=== PATIENT | male | born 1945 | race Caucasian/White ===

== ENCOUNTER 2020-02-23 12:01 | Inpatient (IN) | payer BC, OTHER ==
[~2020-02-23] VITALS: Ht 177.8 cm; Wt 79.0 kg
[2020-02-23] MEDS ORDERED: D3 +TAB PO (12:27)
[2020-02-23] MEDS ORDERED: TIOT18INH INH (12:27)
[2020-02-23] MEDS ORDERED: SYMB16INH INH (12:27)
[2020-02-23] MEDS ORDERED: DOXY100T PO (12:27)
[2020-02-23] MEDS ORDERED: PROAAER10 INH (12:27)
[2020-02-23] MEDS ORDERED: FLOM0.4C39 PO (12:27)
[2020-02-23] MEDS ORDERED: PRED20TA PO (12:27)
[2020-02-23] MEDS ORDERED: SYNT125T PO (12:27)
[2020-02-23] MEDS ORDERED: ACET20%4ML INH (12:27)
[2020-02-23] MEDS ORDERED: FLUTISP (12:27)
[2020-02-23] MEDS ORDERED: SIMV40TA20 PO (12:27)
[2020-02-23] MEDS ORDERED: GUAI400T9 PO (12:27)
[2020-02-23 13:13] LABS: INR 1.23; PROTHROMBIN TIME 15.8 SECONDS (11.8-14.0)
[2020-02-23 13:24] LABS: BASO % 0.2 % (0.0-1.0); HEMATOCRIT 41.5 % (42.0-52.0); HEMOGLOBIN 13.3 g/dl (13.5-17.5); LYMPH # 0.6 10^3/uL (1.5-5.0); LYMPH % 5.7 % (24.0-44.0); MEAN CORPUSCULAR HEMOGLOBIN 29.4 pg (27.0-33.0); MEAN CORPUSCULAR VOLUME 91.6 fl (80.0-96.0); MONO # 0.4 10^3/uL (0.0-0.8); MONO % 3.3 % (0.0-5.0); NEUTROPHILS # 10.1 10^3/uL (1.5-8.5); NEUTROPHILS % 90.4 % (36.0-66.0); PLATELET COUNT, AUTOMATED 269 10^3/uL (150-450); RED BLOOD COUNT 4.53 10^6/uL (4.30-6.10); WHITE BLOOD COUNT 11.1 10^3/uL (4.0-10.0)
[2020-02-23 13:29] LABS: ALBUMIN 3.8 GM/DL (3.2-5.2); ALT/SGPT 100 U/L (12-78); BILIRUBIN,DIRECT 0.4 MG/DL (0.0-0.2); BILIRUBIN,TOTAL 0.8 MG/DL (0.2-1.0); BLOOD UREA NITROGEN 21 MG/DL (7-18); CALCIUM LEVEL 9.8 MG/DL (8.8-10.2); CARBON DIOXIDE LEVEL 32 MEQ/L (21-32); CHLORIDE LEVEL 104 MEQ/L (98-107); CK-MB VALUE MASS 5.3 NG/ML (<3.6); CPK CREATINE PHOSPHOKINASE 98 U/L (39-308); CREATININE FOR GFR 0.84 MG/DL (0.70-1.30); GLOMERULAR FILTRATION RATE > 60.0 (>42); GLUCOSE, FASTING 126 MG/DL (70-100); MB/CK RELATIVE INDEX 5.41 (< OR =4); POTASSIUM SERUM 4.3 MEQ/L (3.5-5.1); SODIUM LEVEL 143 MEQ/L (136-145); THYROXINE (T4) 10.3 UG/DL (4.5-12.0); TOTAL PROTEIN 6.8 GM/DL (6.4-8.2); TROPONIN I 0.02 NG/ML (< 0.10)
--- NOTE | 2020-02-23 13:33 | REPVR ---
PROCEDURE INFORMATION: Exam: XR Chest, 1 View Exam date and time: 02/23/2020 1:10 PM Age: 74 years old Clinical indication: Shortness of breath; Additional info: Dyspnea/cough TECHNIQUE: Imaging protocol: XR of the chest Views: 1 view. COMPARISON: No relevant prior studies available. FINDINGS: Lungs: Unremarkable. No consolidation. Pleural space: Unremarkable. No pleural effusion. No pneumothorax. Heart/Mediastinum: Unremarkable. No cardiomegaly. Vasculature: Calcification of the thoracic aorta. Bones/joints: Degenerative change of the spine. IMPRESSION: No acute cardiopulmonary abnormality. Electronically signed by: Josselin Guevara On 02/23/2020 13:33:32 PM
[2020-02-23] MEDS ORDERED: diltiaZEM 125 MG in NS 100 ML IV SCH ×3 (15:00→20:40)
[2020-02-23 15:28] LABS: NT-PRO BNP 2331 PG/ML (<125)
[2020-02-23] MEDS ORDERED: D31000TA2 PO (17:54)
[2020-02-23] MEDS ORDERED: PRES10CA2 PO (17:55)
[2020-02-23] MEDS ORDERED: MAALOX 30 ML SUSP *UDC PO PRN (18:00)
[2020-02-23] MEDS: DIGOXIN INJ 0.5 MG/2 ML AMP (J1160) IV SCH (18:00)
[2020-02-23] MEDS ORDERED: MOM 30ML SUSPENSION UDC PO PRN (18:00)
[2020-02-23] MEDS ORDERED: AMIODARONE HCL 150 MG in IV 1 EA IV STA (18:08)
--- NOTE | 2020-02-23 18:30 | HPEPDOC ---
[facility] Medical History & Physical Date of Admission Feb 23, 2020 Date of Service: Feb 23, 2020 Attending Physician: FRANCESCA WASHINGTON MD History and Physical CHIEF COMPLAINT: shortness of breath HISTORY OF PRESENT ILLNESS: Mr. Chamorro is a 74 yo M with a hx of COPD, presenting to the ED with a 2 week history of worsening SOB, weight gain (~10lb) in same time frame. He reports having been treated for COPD exacerbation with steroids. Poor historian. Receives care at the [facility]. He denies palpitations, chest pain, syncope or lightheadedness. PAST MEDICAL HISTORY: 1.COPD PAST SURGICAL HISTORY: NA. SOCIAL HISTORY: former smoker, 30+ year hx denies etoh FAMILY HISTORY: NA ALLERGIES: Please see below. REVIEW OF SYSTEMS: CONSTITUTIONAL: reports a 10 lb weight gain in 2 weeks HEENT: none. CARDIOVASCULAR: none. RESPIRATORY: worsening shortness of breath GASTROINTESTINAL: none GENITOURINARY: none. SKIN: none. MUSCULOSKELETAL: none. NEUROLOGICAL: none. PSYCHIATRIC: none. ENDOCRINE: none. HEMATOLOGIC/LYMPHATIC: none. HOME MEDICATIONS: Please see below. PHYSICAL EXAMINATION: VITAL SIGNS: please see below GENERAL APPEARANCE: NAD, mildly short of breath. Speaking full sentences. HEENT: PERRLA, EOMI. CARDIOVASCULAR: irregular, tachycardic. S1, S2. No murmur appreciated. LUNGS: no wheeze, no rales appreciated. Good air entry. Mild crackles diffusely ABDOMEN: soft, non tender. MUSCULOSKELETAL: no joint deformity. EXTREMITIES: 2+ edema bilateraly. NEUROLOGICAL: no focal neurological deficits. PSYCHIATRIC: AAO x 3, calm, pleasant, cooperative. LABORATORY DATA: See below. IMAGING: CXR (02/23/20) FINDINGS: Lungs: Unremarkable. No consolidation. Pleural space: Unremarkable. No pleural effusion. No pneumothorax. Heart/Mediastinum: Unremarkable. No cardiomegaly. Vasculature: Calcification of the thoracic aorta. Bones/joints: Degenerative change of the spine. IMPRESSION: No acute cardiopulmonary abnormality. MICROBIOLOGY: Please see below. ASSESSMENT: 74 yo M with a hx of COPD, presenting to the ED with a 2 week history of worsening shortness of breath on exertion, as well as 10 lb weight gain in 2 weeks. He received most of care at the [facility]. Reports having been treated for COPD exacerbation 2 weeks ago. In the ED noted to have atrial flutter with RVR (HRs 150s). S/p IV and PO cardizem, rate uncontrolled. Admitted to ICU with cardizem drip. Started AC. Cardiology consult. Dr. Owusu. PLAN: 1. Aflutter with RVR: new onset. S/p cardizem IV, PO in ED. Started cardizem drip. Cardiology consult, discussed with Dr. Owusu. Add amiodarone loading dose 150 mg IV x 1. Add digoxin 0.25 mg IV q6h x 4. Start AC with eliquis 5 mg Q12h. Obtain 2D echo. Initial trop 0.02. Trend x 3. Mg, Phos in AM. Check TSH. 2. CHF exacerbation: diuresis with lasix 40 mg q8h IV. Will need BB on DC. Start lisinopril 5 mg daily. 2D ECHO ordered. LEE lowe. 3. COPD: resume home inhalers. Nasal [place] 3LPM. DVT ppx: eliquis 5 mg bid. Vital Signs Vital Signs Date Time Temp Pulse Resp B/P (MAP) Pulse Ox O2 Delivery O2 Flow Rate FiO2 02/23/20 16:41 107 126/78 02/23/20 14:20 24 97 Nasal Cannula 3.0 02/23/20 12:01 97.3 Laboratory Data Labs 24H Laboratory Tests 2 02/23/20 12:25: Immature Granulocyte % (Auto) 0.4, Neutrophils (%) (Auto) 90.4H, Lymphocytes (%) (Auto) 5.7L, Monocytes (%) (Auto) 3.3, Eosinophils (%) (Auto) 0.0, Basophils (%) (Auto) 0.2, Neutrophils # (Auto) 10.1H, Lymphocytes # (Auto) 0.6L, Monocytes # (Auto) 0.4, Eosinophils # (Auto) 0.0, Basophils # (Auto) 0.0, Nucleated Red Blood Cells % (auto) 0.0, Prothrombin Time 15.8H, Prothromb Time International Ratio 1.23, Anion Gap 7L, Glomerular Filtration Rate > 60.0, Calcium Level 9.8, Total Bilirubin 0.8, Direct Bilirubin 0.4H, Aspartate Amino Transf (AST/SGOT) 50H, Alanine Aminotransferase (ALT/SGPT) 100H, Alkaline Phosphatase 64, Total Creatine Kinase 98, Creatine Kinase MB 5.3H, Creatine Kinase MB Relative Index 5.41H, Troponin I 0.02, KG-Jha-D-Type Natriuretic Peptide 2331H, Total Protein 6.8, Albumin 3.8, Albumin/Globulin Ratio 1.3, Thyroid Stimulating Hormone (TSH) 2.320, Thyroxine (T4) 10.3 02/23/20 12:33: Lactic Acid Level 1.3 CBC/BMP Laboratory Tests 02/23/20 12:25 Microbiology Microbiology 02/23/20 Blood Culture, Received Pending Home Medications Scheduled Acetylcysteine (Acetylcysteine) 200 Mg/1 Ml Vial, 600 MG INH BID Budesonide/Formoterol (Symbicort 160-4.5 Mcg Inhaler) 6 Gm Hfa.aer.ad, 2 PUFF INH BID Cholecalciferol (Vitamin D3) (Vitamin D3) 1,000 Unit Tablet, 2,000 UNITS PO DAILY Doxycycline Hyclate (Doxycycline Hyclate) 100 Mg Tablet, 100 MG PO BID started 02/18/20 for 10 days Fluticasone Propionate (Fluticasone Propionate) 16 Gm [place].susp, 1 SPRAY NA BID Levothyroxine Sodium (Synthroid) 125 Mcg Tablet, 125 MCG PO QAM patient states has not started yet Prednisone (Prednisone) 20 Mg Tablet, 40 MG PO DAILY started 02/18/20 took last dose 02/23/20 Simvastatin (Simvastatin) 40 Mg Tablet, 40 MG PO QHS Tamsulosin HCl (Flomax) 0.4 Mg Capsule, 0.4 MG PO DAILY patient states has not started yet Tiotropium Model Monohydrate (Spiriva) 18 Mcg Cap.w.dev, 1 PUFF INH DAILY Vit C/E/Zn/Coppr/Lutein/Zeaxan (Preservision Areds 2 Softgel) 1 Each Capsule, 1 EACH PO BID Scheduled PRN Albuterol Sulfate (Proair Hfa) 8.5 Gm Hfa.aer.ad, 2 PUFF INH Q4-6HP PRN for wheezing Guaifenesin (Guaifenesin) 400 Mg Tablet, 400 MG PO TID PRN for COUGH Allergies Coded Allergies: No Known Allergies (Unverified , 02/23/20) A-FIB/CHADSVASC A-FIB History Current/History of A-Fib/PAF?: Yes Current PO Anticoag Therapy: Yes FRANCESCA WASHINGTON MD Feb 23, 2020 18:30
[2020-02-23] MEDS: FUROSEMIDE 40MG/4ML VIAL (J1940) IV SCH (19:22)
[2020-02-23] MEDS: APIXABAN 5 MG TAB (ELIQUIS) PO SCH (19:23)
[2020-02-23] MEDS: ACETAMINOPHEN TAB 650MG DOSE (2X325MG) PO PRN (20:45)
[2020-02-23] MEDS: DOXYCYCLINE HYCLATE 100MG TABLET PO SCH (21:00)
[2020-02-23] MEDS ORDERED: ACETYLCYSTEINE 20% 4 ML VIAL (200MG/ML) INH SCH (21:00)
[2020-02-23 22:00] VITALS: BP 121/73
[2020-02-23] MEDS ORDERED: ALBUTEROL 90 MCG/ACT 8GM HFA INHALER INH PRN (22:30)
[2020-02-23] MEDS ORDERED: guaiFENesin 200 MG TAB PO PRN (22:30)
[2020-02-23] MEDS: TIOTROPIUM INHALER/CAPSULE (SPIRIVA) INH SCH (22:30)
[2020-02-23] MEDS: diltiaZEM 125 MG in NS 100 ML IV SCH (22:42)
[2020-02-23] MEDS: SYMBICORT 160/4.5MCG INHALER 6GM INH SCH (22:49)
[2020-02-24] VITALS (17 sets, daily range): BP systolic 88–130; BP diastolic 51–82
[2020-02-24] MEDS: FUROSEMIDE 40MG/4ML VIAL (J1940) IV SCH ×2 (00:40→08:04)
[2020-02-24] MEDS: DIGOXIN INJ 0.5 MG/2 ML AMP (J1160) IV SCH ×3 (00:43→11:14)
[2020-02-24 05:44] LABS: BASO % 0.3 % (0.0-1.0); EOS # 0.1 10^3/uL (0.0-0.5); EOS % 0.7 % (0.0-3.0); HEMOGLOBIN 12.7 g/dl (13.5-17.5); LYMPH # 1.5 10^3/uL (1.5-5.0); LYMPH % 15.1 % (24.0-44.0); MEAN CORPUSCULAR HEMOGLOBIN 28.4 pg (27.0-33.0); MEAN CORPUSCULAR HGB CONC 31.8 g/dl (32.0-36.5); MEAN CORPUSCULAR VOLUME 89.5 fl (80.0-96.0); MONO # 1.2 10^3/uL (0.0-0.8); MONO % 12.1 % (0.0-5.0); NEUTROPHILS % 71.3 % (36.0-66.0); PLATELET COUNT, AUTOMATED 208 10^3/uL (150-450); RED BLOOD COUNT 4.47 10^6/uL (4.30-6.10); WHITE BLOOD COUNT 9.9 10^3/uL (4.0-10.0)
[2020-02-24 06:05] LABS: HEMOGLOBIN A1c 5.7 %
[2020-02-24] MEDS: LEVOTHYROXINE 125MCG TABLET (0.125MG) PO SCH (06:10)
[2020-02-24] MEDS: diltiaZEM 125 MG in NS 100 ML IV SCH ×2 (06:12→15:29)
[2020-02-24 06:16] LABS: ALBUMIN 3.6 GM/DL (3.2-5.2); ALT/SGPT 115 U/L (12-78); BILIRUBIN,TOTAL 0.8 MG/DL (0.2-1.0); BLOOD UREA NITROGEN 16 MG/DL (7-18); CARBON DIOXIDE LEVEL 38 MEQ/L (21-32); CHLORIDE LEVEL 98 MEQ/L (98-107); CHOLESTEROL LEVEL 119 MG/DL (<200); CREATININE FOR GFR 0.82 MG/DL (0.70-1.30); GLOMERULAR FILTRATION RATE > 60.0 (>42); GLUCOSE, FASTING 93 MG/DL (70-100); HDL CHOLESTEROL 50 MG/DL (>40); LDL CHOLESTEROL 54 MG/DL (<100); MAGNESIUM LEVEL 1.7 MG/DL (1.8-2.4); NON-HDL-C 69 MG/DL; PHOSPHORUS LEVEL 3.8 MG/DL (2.5-4.9); POTASSIUM SERUM 3.4 MEQ/L (3.5-5.1); SODIUM LEVEL 143 MEQ/L (136-145); TOTAL PROTEIN 6.2 GM/DL (6.4-8.2); TRIGLYCERIDES LEVEL 76 MG/DL (<150); TROPONIN I 0.02 NG/ML (< 0.10)
[2020-02-24] MEDS: SYMBICORT 160/4.5MCG INHALER 6GM INH SCH ×2 (07:29→20:26)
[2020-02-24] MEDS: TIOTROPIUM INHALER/CAPSULE (SPIRIVA) INH SCH (07:29)
[2020-02-24] MEDS ORDERED: POTASSIUM CHLORIDE 10 MEQ SR TABLET PO ONE (07:30)
[2020-02-24] MEDS ORDERED: lisinopriL 5 MG TAB PO SCH (09:00)
[2020-02-24] MEDS ORDERED: SYMBICORT 160/4.5MCG INHALER 6GM INH SCH (09:00)
[2020-02-24] MEDS ORDERED: TIOTROPIUM INHALER/CAPSULE (SPIRIVA) INH SCH (09:00)
[2020-02-24] MEDS ORDERED: AMIODARONE HCL 150 MG in IV 1 EA IV STA ×2 (09:08→18:19)
[2020-02-24] MEDS: TAMSULOSIN 0.4 MG CAP PO SCH (09:21)
[2020-02-24] MEDS: APIXABAN 5 MG TAB (ELIQUIS) PO SCH ×2 (09:30→20:43)
[2020-02-24] MEDS: DOXYCYCLINE HYCLATE 100MG TABLET PO SCH ×2 (09:30→20:42)
[2020-02-24] MEDS: VITAMIN D 1,000 INTERNATIONAL UNITS TABLET PO SCH (09:30)
[2020-02-24] MEDS: FLUTICASONE PROP 0.05% NASAL SPRAY 16 GM (FLONASE) SCH ×2 (09:31→20:43)
[2020-02-24] MEDS: ACETAMINOPHEN TAB 650MG DOSE (2X325MG) PO PRN (11:15)
--- NOTE | 2020-02-24 14:26 | IPNPDOC ---
Date Seen The patient was seen on 02/24/20. Progress Note TOTAL ICU TIME SPENT CARING FOR PATIENT: 35 mins SUBJECTIVE: Increased cardizem gtt to 15 mg/hr due to HR increased to 150 bpm. Given 150 mg iV bolus amiodarone and early dose of digoxin with HR improved to 80-90 bpm. Cardiology on board, made recommendations. On 3 L NC, home amount. Denies chest pain but admits to increased SOB, nausea. PHYSICAL EXAMINATION: VITAL SIGNS: please see below GENERAL APPEARANCE: NAD, mildly short of breath HEENT: PERRLA, EOMI CARDIOVASCULAR: irregularly irrregular rhythm, tachycardic. S1, S2. No murmur appreciated. LUNGS: no wheeze, no rales appreciated. Good air entry. Mild crackles diffusely ABDOMEN: soft, non tender. MUSCULOSKELETAL: no joint deformity. EXTREMITIES: 2+ edema bilaterally. NEUROLOGICAL: no focal neurological deficits. PSYCHIATRIC: AAO x 3, calm, pleasant, cooperative. LABORATORY DATA, IMAGING STUDIES, MICROBIOLOGY: Please see below CXR 02/23/20: No acute cardiopulmonary abnormality. ECG: atrial fibrillation, HR 15O's. ASSESSMENT: 74 yo M with a hx of chronic respiratory failure 2/2 to COPD (3 L NC O2 dependant ATC) admitted to ICU for further treatment/management of atrial flutter with RVR (HRs 150s), cardiology consulted. PLAN: 1. Aflutter with RVR, new onset. Hx of significant lung disease, no infection that is identified. TSH wnl. F/u echocardiogram today, cardiology following. C/w eliquis, cardizem gtt, s/p digoxin, amiodarone. Tele. 2. Acute on chronic respiratory failure 2/2 to CHF exacerbation 2/2 to unc ontrolled atrial flutter/atrial fibrillation. Currently saturating well on 3 L NC, home amount. BNP >2330. C/w diuresis with lasix 40 mg q8h IV, cardizem gtt, lisinopril 5 mg daily. 2D ECHO ordered, f/u results and cardiology recommendations. 3. COPD, not currently in exacerbation. On home amount of oxygen, saturating well. Albuterol PRN, incentive spirometer. 4. DVT ppx: eliquis 5 mg bid. DISPOSITION: Currently remains on cardizem gtt. Remains in ICU care, if can wean down or off gtt, transition to PCU. F/u cardiology recommendations. VS, I&O, 24H, Pericobonbud Vital Signs/I&O Vital Signs Date Time Temp Pulse Resp B/P (MAP) Pulse Ox O2 Delivery O2 Flow Rate FiO2 02/24/20 13:00 102 99/56 (70) Nasal Cannula 3.0 02/24/20 12:00 98.8 18 96 I&O- Last 24 Hours up to 6 AM 02/24/20 06:00 Intake Total 855 ml Output Total 4350 ml Balance -3495 ml Laboratory Data 24H LABS Laboratory Tests 2 02/23/20 23:35: Troponin I 0.02 02/24/20 05:15: Troponin I 0.02, Immature Granulocyte % (Auto) 0.5, Neutrophils (%) (Auto) 71.3H, Lymphocytes (%) (Auto) 15.1L, Monocytes (%) (Auto) 12.1H, Eosinophils (%) (Auto) 0.7, Basophils (%) (Auto) 0.3, Neutrophils # (Auto) 7.0, Lymphocytes # (Auto) 1.5, Monocytes # (Auto) 1.2H, Eosinophils # (Auto) 0.1, Basophils # (Auto) 0.0, Nucleated Red Blood Cells % (auto) 0.0, Anion Gap 7L, Glomerular Filtration Rate > 60.0, Estimated Mean Plasma Glucose 117H, Hemoglobin A1c 5.7, Calcium Level 9.0, Phosphorus Level 3.8, Magnesium Level 1.7L, Total Bilirubin 0.8, Aspartate Amino Transf (AST/SGOT) 59H, Alanine Aminotransferase (ALT/SGPT) 115H, Alkaline Phosphatase 57, Total Protein 6.2L, Albumin 3.6, Albumin/Globulin Ratio 1.4, Triglycerides Level 76, Total Cholesterol 119, LDL Cholesterol 54, Non-HDL Cholesterol (LDL + VLDL) 69, Total HDL Cholesterol 50, Cholesterol/HDL Ratio 2.380, Thyroid Stimulating Hormone (TSH) 3.490 02/24/20 08:30: Urine Color STRAW, Urine Appearance CLEAR, Urine pH 7.0, Urine Specific [place] 1.006, Urine Protein NEGATIVE, Urine Glucose (UA) NEGATIVE, Urine Ketones TRACEH, Urine Blood 1+H, Urine Nitrite NEGATIVE, Urine Bilirubin NEGATIVE, Urine Urobilinogen 0.2, Urine Leukocyte Esterase NEGATIVE, Urine WBC (Auto) 4H, Urine RBC (Auto) 6H, Urine Hyaline Casts (Auto) 0, Urine Bacteria (Auto) NEGATIVE, Urine Squamous Epithelial Cells 0, Urine Mucus (Auto) SMALL, Urine Sperm (Auto) CBC/BMP Laboratory Tests 02/24/20 05:15 Microbiology Microbiology 02/23/20 Blood Culture, Received Pending 02/23/20 Blood Culture - Preliminary, Resulted No growth after 24 hours . All specim... Current Medications Current Medications Medications (Trade) Dose Ordered Sig/Ronal Route PRN Reason Start Time Stop Time Status Last Admin Dose Admin Acetaminophen (Tylenol Tab) 650 mg Q4H PRN PO PAIN OR FEVER 02/23/20 18:00 02/24/20 11:15 Acetylcysteine (Mucomyst 20% (200mg/ml)) 600 mg BID INH 02/23/20 21:00 02/24/20 10:30 DC Al Hydrox/Mg Hydrox/Simethicone (Mylanta) 30 ml DAILY PRN PO DYSPEPSIA 02/23/20 18:00 Albuterol Sulfate (Proventil, Ventolin Hfa) 2 puff Q4HP PRN INH wheezing 02/23/20 22:30 Amiodarone HCl 150 mg/IV Miscellaneous Supplies 100 ml @ 600 mls/hr STAT STAT IV 02/23/20 18:08 02/23/20 18:21 DC 02/23/20 18:08 Amiodarone HCl 150 mg/IV Miscellaneous Supplies 100 ml @ 600 mls/hr STAT STAT IV 02/24/20 09:08 02/24/20 09:17 DC 02/24/20 09:25 Apixaban (Eliquis) 5 mg Q12H PO 02/23/20 21:00 02/24/20 09:30 Budesonide/ Formoterol Fumarate (Symbicort 160/ 4.5mcg) 2 puff BID INH 02/23/20 22:30 02/24/20 07:29 Budesonide/ Formoterol Fumarate (Symbicort 160/ 4.5mcg) 2 puff BID INH 02/24/20 09:00 02/23/20 22:25 DC Digoxin (Lanoxin) 0.25 mg Q6H IV 02/23/20 18:00 02/24/20 12:01 DC 02/24/20 11:14 Diltiazem HCl (Cardizem) 20 mg STAT STAT IV 02/23/20 13:42 02/23/20 13:46 DC 02/23/20 14:09 Diltiazem HCl (Cardizem) 30 mg Q6H PO 02/24/20 12:00 02/24/20 12:57 Diltiazem HCl (Cardizem) 30 mg STAT STAT IV 02/23/20 14:50 02/23/20 14:53 DC 02/23/20 15:32 Diltiazem HCl 125 mg/Sodium Chloride 125 ml @ 12 mls/hr [id number] IV 02/23/20 22:14 02/24/20 06:12 Diltiazem HCl 125 mg/Sodium Chloride 125 ml @ 1 mls/hr Q24H IV 02/23/20 15:00 02/23/20 15:48 DC Diltiazem HCl 125 mg/Sodium Chloride 125 ml @ 5 mls/hr Q24H IV 02/23/20 17:30 02/23/20 20:37 DC 02/23/20 17:45 Diltiazem HCl 125 mg/Sodium Chloride 125 ml @ 5 mls/hr Q24H IV 02/23/20 20:40 02/23/20 22:16 DC 02/23/20 21:09 Doxycycline Hyclate (Vibramycin) 100 mg BID PO 02/23/20 21:00 02/24/20 09:30 Fluticasone Propionate (Flonase 0.05% Nasal [place]) 1 spray BID NA 02/24/20 09:00 02/24/20 09:31 Furosemide (LASIX injection) 40 mg Q8H IV 02/23/20 16:00 02/24/20 08:04 Guaifenesin (Robitussin Tab) 400 mg TID PRN PO COUGH 02/23/20 22:30 Home Med (Med Rec Complete!) ASDIRECTED XX 02/23/20 18:00 02/23/20 18:00 DC Levothyroxine Sodium (Synthroid) 125 mcg DAILY@0600 PO 02/24/20 06:00 02/24/20 06:10 Lisinopril (Prinivil) 5 mg DAILY PO 02/24/20 09:00 02/24/20 09:41 Magnesium Hydroxide (Milk Of Magnesia) 30 ml DAILY PRN PO CONSTIPATION 02/23/20 18:00 Simvastatin (Zocor) 40 mg QHS PO 02/24/20 21:00 Tamsulosin HCl (Flomax) 0.4 mg DAILY PO 02/24/20 09:00 02/24/20 09:21 Tiotropium [place] (Spiriva Handihaler) 1 inhalation DAILY INH 02/24/20 09:00 Cancel Tiotropium [place] (Spiriva Handihaler) 1 inhalation DAILY@0800 INH 02/23/20 22:30 02/24/20 07:29 Vitamin D (Vitamin D) 2,000 units DAILY PO 02/24/20 09:00 02/24/20 09:30 Allergies Coded Allergies: No Known Allergies (Unverified , 02/23/20) Jenny Ayala MD Feb 24, 2020 14:26
[2020-02-24] MEDS: SIMVASTATIN 40 MG TAB PO SCH (20:42)
[2020-02-25] VITALS (18 sets, daily range): BP systolic 93–117; BP diastolic 50–65
[2020-02-25] MEDS: diltiaZEM 125 MG in NS 100 ML IV SCH ×2 (02:28→19:22)
[2020-02-25 05:24] LABS: BASO % 0.4 % (0.0-1.0); EOS # 0.1 10^3/uL (0.0-0.5); EOS % 1.3 % (0.0-3.0); HEMATOCRIT 36.2 % (42.0-52.0); HEMOGLOBIN 11.8 g/dl (13.5-17.5); LYMPH # 1.6 10^3/uL (1.5-5.0); LYMPH % 17.3 % (24.0-44.0); MEAN CORPUSCULAR HEMOGLOBIN 29.4 pg (27.0-33.0); MEAN CORPUSCULAR HGB CONC 32.6 g/dl (32.0-36.5); MONO % 10.7 % (0.0-5.0); NEUTROPHILS # 6.3 10^3/uL (1.5-8.5); NEUTROPHILS % 69.9 % (36.0-66.0); PLATELET COUNT, AUTOMATED 192 10^3/uL (150-450); RED BLOOD COUNT 4.02 10^6/uL (4.30-6.10)
[2020-02-25 05:27] LABS: HEMOGLOBIN A1c 5.5 %
[2020-02-25 05:40] LABS: ALBUMIN 3.2 GM/DL (3.2-5.2); ALT/SGPT 102 U/L (12-78); BILIRUBIN,TOTAL 1.1 MG/DL (0.2-1.0); BLOOD UREA NITROGEN 22 MG/DL (7-18); CARBON DIOXIDE LEVEL 38 MEQ/L (21-32); CHLORIDE LEVEL 97 MEQ/L (98-107); CREATININE FOR GFR 0.82 MG/DL (0.70-1.30); GLOMERULAR FILTRATION RATE > 60.0 (>42); GLUCOSE, FASTING 92 MG/DL (70-100); MAGNESIUM LEVEL 1.7 MG/DL (1.8-2.4); PHOSPHORUS LEVEL 4.1 MG/DL (2.5-4.9); POTASSIUM SERUM 3.3 MEQ/L (3.5-5.1); SODIUM LEVEL 141 MEQ/L (136-145); TOTAL PROTEIN 5.9 GM/DL (6.4-8.2)
[2020-02-25] MEDS: LEVOTHYROXINE 125MCG TABLET (0.125MG) PO SCH (06:37)
[2020-02-25] MEDS: TIOTROPIUM INHALER/CAPSULE (SPIRIVA) INH SCH (08:06)
[2020-02-25] MEDS: SYMBICORT 160/4.5MCG INHALER 6GM INH SCH ×2 (08:07→19:33)
[2020-02-25] MEDS: VITAMIN D 1,000 INTERNATIONAL UNITS TABLET PO SCH (08:13)
[2020-02-25] MEDS: FUROSEMIDE 100MG/10ML VIAL (J1940) IV SCH (08:13)
[2020-02-25] MEDS: APIXABAN 5 MG TAB (ELIQUIS) PO SCH ×2 (08:14→21:06)
[2020-02-25] MEDS: DOXYCYCLINE HYCLATE 100MG TABLET PO SCH ×2 (08:14→21:07)
[2020-02-25] MEDS: POTASSIUM CHLORIDE 10 MEQ SR TABLET PO SCH (08:14)
[2020-02-25] MEDS: MAGNESIUM OXIDE 400 MG TAB (MAG-OX) PO SCH (08:14)
[2020-02-25] MEDS: FLUTICASONE PROP 0.05% NASAL SPRAY 16 GM (FLONASE) SCH ×2 (08:14→21:07)
[2020-02-25] MEDS: TAMSULOSIN 0.4 MG CAP PO SCH (08:14)
[2020-02-25] MEDS ORDERED: AMIODARONE HCL 150 MG in IV 1 EA IV STA ×2 (11:13→13:15)
--- NOTE | 2020-02-25 13:53 | IPNPDOC ---
Date Seen The patient was seen on 02/25/20. Progress Note TOTAL ICU TIME SPENT CARING FOR PATIENT (no procedures): 30 mins SUBJECTIVE: Cardizem gtt down to 5 mg/hr due, HR increased to 150 bpm with activity and was given additional dose of digoxin and 2x amiodarone 150 mg IV. Cardiology to review echocardiogram today. On 2-3 LNC, home amount. Denies chest pain but admits to increased SOB, nausea. PHYSICAL EXAMINATION: VITAL SIGNS: please see below GENERAL APPEARANCE: NAD, mildly short of breath with speaking at times HEENT: PERRLA, EOMI CARDIOVASCULAR: irregularly irrregular rhythm, tachycardic. S1, S2. No murmur appreciated. LUNGS: no wheeze, no rales appreciated. Good air entry. Mild crackles diffusely ABDOMEN: soft, non tender. MUSCULOSKELETAL: no joint deformity. EXTREMITIES: 2+ edema bilaterally. NEUROLOGICAL: no focal neurological deficits. PSYCHIATRIC: AAO x 3, calm, pleasant, cooperative. LABORATORY DATA, IMAGING STUDIES, MICROBIOLOGY: Please see below CXR 02/23/20: No acute cardiopulmonary abnormality. ECG: atrial fibrillation, HR 15O's. Echo: result pending ASSESSMENT: 74 yo M with a hx of chronic respiratory failure 2/2 to COPD (3 L NC O2 dependant ATC) admitted to ICU for further treatment/management of atrial flutter with RVR (HRs 150s), cardiology consulted. PLAN: 1. Aflutter with RVR, new onset. Hx of significant lung disease, no infection that is identified. TSH wnl. F/u echocardiogram results. C/w eliquis, cardizem gtt, cardizem PO Q6hrs s/p digoxin, amiodarone IV for uncontrolled HR today. Tele. Cardiology following closely. 2. Acute on chronic respiratory failure 2/2 to CHF exacerbation 2/2 to uncontrolled atrial flutter/atrial fibrillation. Currently saturating well on 2- 3 L NC, home amount. C/w diuresis with lasix 60 mg daily IV, cardizem gtt, lisinopril 5 mg daily. 2D ECHO done, f/u results and cardiology recommendations. 3. COPD, not currently in exacerbation. On home amount of oxygen, saturating well. Albuterol PRN, incentive spirometer. 4. DVT ppx: eliquis 5 mg bid. DISPOSITION: Currently remains on cardizem gtt, plan is to hopefully transition off later this evening if able. Remains in ICU care, if can wean down or off gtt, transition to PCU. Cardiology following closely. VS, I&O, 24H, Pericobone Vital Signs/I&O Vital Signs Date Time Temp Pulse Resp B/P (MAP) Pulse Ox O2 Delivery O2 Flow Rate FiO2 02/25/20 12:00 97.6 145 20 114/59 (77) 96 Nasal Cannula 2.0 I&O- Last 24 Hours up to 6 AM 02/25/20 06:00 Intake Total 537 ml Output Total 2650 ml Balance -2113 ml Laboratory Data 24H LABS Laboratory Tests 2 02/25/20 04:50: Immature Granulocyte % (Auto) 0.4, Neutrophils (%) (Auto) 69.9H, Lymphocytes (%) (Auto) 17.3L, Monocytes (%) (Auto) 10.7H, Eosinophils (%) (Auto) 1.3, Basophils (%) (Auto) 0.4, Neutrophils # (Auto) 6.3, Lymphocytes # (Auto) 1.6, Monocytes # (Auto) 1.0H, Eosinophils # (Auto) 0.1, Basophils # (Auto) 0.0, Nucleated Red Blood Cells % (auto) 0.0, Anion Gap 6L, Glomerular Filtration Rate > 60.0, Estimated Mean Plasma Glucose 111H, Hemoglobin A1c 5.5, Calcium Level 9.0, Phosphorus Level 4.1, Magnesium Level 1.7L, Total Bilirubin 1.1H, Aspartate Amino Transf (AST/SGOT) 38H, Alanine Aminotransferase (ALT/SGPT) 102H, Alkaline Phosphatase 56, Total Protein 5.9L, Albumin 3.2, Albumin/Globulin Ratio 1.2, Thyroid Stimulating Hormone (TSH) 2.610 CBC/BMP Laboratory Tests 02/25/20 04:50 Microbiology Microbiology 02/23/20 Blood Culture - Preliminary, Resulted No growth after 24 hours . All specim... 02/23/20 Blood Culture - Preliminary, Resulted No Growth after 48 hours. All Specime... Current Medications Current Medications Medications (Trade) Dose Ordered Sig/Ronal Route PRN Reason Start Time Stop Time Status Last Admin Dose Admin Acetaminophen (Tylenol Tab) 650 mg Q4H PRN PO PAIN OR FEVER 02/23/20 18:00 02/24/20 11:15 Acetylcysteine (Mucomyst 20% (200mg/ml)) 600 mg BID INH 02/23/20 21:00 02/24/20 10:30 DC Al Hydrox/Mg Hydrox/Simethicone (Mylanta) 30 ml DAILY PRN PO DYSPEPSIA 02/23/20 18:00 Albuterol Sulfate (Proventil, Ventolin Hfa) 2 puff Q4HP PRN INH wheezing 02/23/20 22:30 Amiodarone HCl 150 mg/IV Miscellaneous Supplies 100 ml @ 600 mls/hr STAT STAT IV 02/23/20 18:08 02/23/20 18:21 DC 02/23/20 18:08 Amiodarone HCl 150 mg/IV Miscellaneous Supplies 100 ml @ 600 mls/hr STAT STAT IV 02/24/20 09:08 02/24/20 09:17 DC 02/24/20 09:25 Amiodarone HCl 150 mg/IV Miscellaneous Supplies 100 ml @ 600 mls/hr STAT STAT IV 02/24/20 18:19 02/24/20 18:28 DC 02/24/20 18:28 Amiodarone HCl 150 mg/IV Miscellaneous Supplies 100 ml @ 600 mls/hr STAT STAT IV 02/25/20 11:13 02/25/20 11:22 DC 02/25/20 11:27 Amiodarone HCl 150 mg/IV Miscellaneous Supplies 100 ml @ 600 mls/hr STAT STAT IV 02/25/20 13:15 02/25/20 13:24 DC 02/25/20 13:20 Apixaban (Eliquis) 5 mg Q12H PO 02/23/20 21:00 02/25/20 08:14 Budesonide/ Formoterol Fumarate (Symbicort 160/ 4.5mcg) 2 puff BID INH 02/23/20 22:30 02/25/20 08:07 Budesonide/ Formoterol Fumarate (Symbicort 160/ 4.5mcg) 2 puff BID INH 02/24/20 09:00 02/23/20 22:25 DC Digoxin (Lanoxin) 0.25 mg Q6H IV 02/23/20 18:00 02/24/20 12:01 DC 02/24/20 11:14 Diltiazem HCl (Cardizem) 20 mg STAT STAT IV 02/23/20 13:42 02/23/20 13:46 DC 02/23/20 14:09 Diltiazem HCl (Cardizem) 30 mg Q6H PO 02/24/20 12:00 02/25/20 11:26 Diltiazem HCl (Cardizem) 30 mg STAT STAT IV 02/23/20 14:50 02/23/20 14:53 DC 02/23/20 15:32 Diltiazem HCl 125 mg/Sodium Chloride 125 ml @ 10 mls/hr [id number] IV 02/23/20 22:14 02/25/20 02:28 Diltiazem HCl 125 mg/Sodium Chloride 125 ml @ 1 mls/hr Q24H IV 02/23/20 15:00 02/23/20 15:48 DC Diltiazem HCl 125 mg/Sodium Chloride 125 ml @ 5 mls/hr Q24H IV 02/23/20 17:30 02/23/20 20:37 DC 02/23/20 17:45 Diltiazem HCl 125 mg/Sodium Chloride 125 ml @ 5 mls/hr Q24H IV 02/23/20 20:40 02/23/20 22:16 DC 02/23/20 21:09 Doxycycline Hyclate (Vibramycin) 100 mg BID PO 02/23/20 21:00 02/25/20 08:14 Fluticasone Propionate (Flonase 0.05% Nasal [place]) 1 spray BID NA 02/24/20 09:00 02/25/20 08:14 Furosemide (LASIX injection) 40 mg Q8H IV 02/23/20 16:00 02/24/20 15:13 DC 02/24/20 08:04 Furosemide (LASIX injection) 60 mg DAILY IV 02/25/20 09:00 02/25/20 08:13 Guaifenesin (Robitussin Tab) 400 mg TID PRN PO COUGH 02/23/20 22:30 Home Med (Med Rec Complete!) ASDIRECTED XX 02/23/20 18:00 02/23/20 18:00 DC Levothyroxine Sodium (Synthroid) 125 mcg DAILY@0600 PO 02/24/20 06:00 02/25/20 06:37 Lisinopril (Prinivil) 5 mg DAILY PO 02/24/20 09:00 02/24/20 15:13 DC 02/24/20 09:41 Magnesium Hydroxide (Milk Of Magnesia) 30 ml DAILY PRN PO CONSTIPATION 02/23/20 18:00 Magnesium Oxide (Mag-Ox) 800 mg DAILY PO 02/25/20 09:00 02/25/20 08:14 Potassium Chloride (Micro-K Extencaps) 30 meq DAILY PO 02/25/20 09:00 02/25/20 08:14 Simvastatin (Zocor) 40 mg QHS PO 02/24/20 21:00 02/24/20 20:42 Tamsulosin HCl (Flomax) 0.4 mg DAILY PO 02/24/20 09:00 02/25/20 08:14 Tiotropium [place] (Spiriva Handihaler) 1 inhalation DAILY INH 02/24/20 09:00 Cancel Tiotropium [place] (Spiriva Handihaler) 1 inhalation DAILY@0800 INH 02/23/20 22:30 02/25/20 08:06 Vitamin D (Vitamin D) 2,000 units DAILY PO 02/24/20 09:00 02/25/20 08:13 Allergies Coded Allergies: No Known Allergies (Unverified , 02/23/20) Jenny Ayala MD Feb 25, 2020 13:52
[2020-02-25] MEDS ORDERED: diltiaZEM 125 MG in NS 100 ML IV SCH (18:03)
[2020-02-25] MEDS ORDERED: OCUVITE 1 TAB PO SCH (21:00)
[2020-02-25] MEDS: SIMVASTATIN 40 MG TAB PO SCH (21:07)
[2020-02-25] MEDS: SENNA 8.6 MG TAB (SENOKOT) PO SCH (21:07)
[2020-02-25] MEDS: OCUVITE 1 TAB PO SCH (21:13)
[2020-02-26] VITALS (9 sets, daily range): BP systolic 84–117; BP diastolic 51–59
[2020-02-26] MEDS: diltiaZEM 125 MG in NS 100 ML IV SCH ×2 (03:30→15:00)
[2020-02-26 05:57] LABS: BASO # 0.1 10^3/uL (0.0-0.2); BASO % 0.6 % (0.0-1.0); EOS # 0.2 10^3/uL (0.0-0.5); EOS % 2.5 % (0.0-3.0); HEMATOCRIT 41.5 % (42.0-52.0); HEMOGLOBIN 13.1 g/dl (13.5-17.5); LYMPH # 1.5 10^3/uL (1.5-5.0); LYMPH % 17.8 % (24.0-44.0); MEAN CORPUSCULAR HEMOGLOBIN 28.7 pg (27.0-33.0); MEAN CORPUSCULAR HGB CONC 31.6 g/dl (32.0-36.5); MONO # 0.9 10^3/uL (0.0-0.8); MONO % 10.6 % (0.0-5.0); NEUTROPHILS # 5.8 10^3/uL (1.5-8.5); PLATELET COUNT, AUTOMATED 203 10^3/uL (150-450); RED BLOOD COUNT 4.56 10^6/uL (4.30-6.10); WHITE BLOOD COUNT 8.5 10^3/uL (4.0-10.0)
[2020-02-26] MEDS: OCUVITE 1 TAB PO SCH ×2 (06:06→18:15)
[2020-02-26] MEDS: LEVOTHYROXINE 125MCG TABLET (0.125MG) PO SCH (06:06)
[2020-02-26 06:34] LABS: ALBUMIN 3.2 GM/DL (3.2-5.2); ALT/SGPT 83 U/L (12-78); BILIRUBIN,TOTAL 1.2 MG/DL (0.2-1.0); BLOOD UREA NITROGEN 22 MG/DL (7-18); CALCIUM LEVEL 9.3 MG/DL (8.8-10.2); CARBON DIOXIDE LEVEL 37 MEQ/L (21-32); CHLORIDE LEVEL 99 MEQ/L (98-107); CREATININE FOR GFR 0.78 MG/DL (0.70-1.30); GLOMERULAR FILTRATION RATE > 60.0 (>42); GLUCOSE, FASTING 88 MG/DL (70-100); MAGNESIUM LEVEL 1.9 MG/DL (1.8-2.4); PHOSPHORUS LEVEL 4.1 MG/DL (2.5-4.9); POTASSIUM SERUM 3.8 MEQ/L (3.5-5.1); SODIUM LEVEL 142 MEQ/L (136-145); TOTAL PROTEIN 5.6 GM/DL (6.4-8.2)
[2020-02-26] MEDS: TIOTROPIUM INHALER/CAPSULE (SPIRIVA) INH SCH (08:23)
[2020-02-26] MEDS: SYMBICORT 160/4.5MCG INHALER 6GM INH SCH ×2 (08:24→19:58)
[2020-02-26] MEDS: TAMSULOSIN 0.4 MG CAP PO SCH (09:19)
[2020-02-26] MEDS: MAGNESIUM OXIDE 400 MG TAB (MAG-OX) PO SCH (09:19)
[2020-02-26] MEDS: FLUTICASONE PROP 0.05% NASAL SPRAY 16 GM (FLONASE) SCH ×2 (09:19→19:22)
[2020-02-26] MEDS: SENNA 8.6 MG TAB (SENOKOT) PO SCH ×2 (09:19→19:21)
[2020-02-26] MEDS: APIXABAN 5 MG TAB (ELIQUIS) PO SCH ×2 (09:19→19:21)
[2020-02-26] MEDS: VITAMIN D 1,000 INTERNATIONAL UNITS TABLET PO SCH (09:19)
[2020-02-26] MEDS: POTASSIUM CHLORIDE 10 MEQ SR TABLET PO SCH (09:19)
[2020-02-26] MEDS: DOXYCYCLINE HYCLATE 100MG TABLET PO SCH ×2 (09:19→19:22)
[2020-02-26] MEDS: FUROSEMIDE 100MG/10ML VIAL (J1940) IV SCH (09:20)
--- NOTE | 2020-02-26 12:55 | IPNPDOC ---
Date Seen The patient was seen on 02/26/20. Progress Note TOTAL ICU TIME SPENT CARING FOR PATIENT (no procedures): 30 mins SUBJECTIVE: Cardizem gtt 7.5 mg/hr due, HR better improved. Patient feels like his appetite is increasing. Denies chest pain but admits to increased SOB, nausea. PHYSICAL EXAMINATION: VITAL SIGNS: please see below GENERAL APPEARANCE: NAD, mildly short of breath with speaking at times HEENT: PERRLA, EOMI CARDIOVASCULAR: irregularly irrregular rhythm, tachycardic. S1, S2. No murmur appreciated. LUNGS: no wheeze, no rales appreciated. Good air entry. Mild crackles diffusely ABDOMEN: soft, non tender. MUSCULOSKELETAL: no joint deformity. EXTREMITIES: 2+ edema bilaterally. NEUROLOGICAL: no focal neurological deficits. PSYCHIATRIC: AAO x 3, calm, pleasant, cooperative. LABORATORY DATA, IMAGING STUDIES, MICROBIOLOGY: Please see below CXR 02/23/20: No acute cardiopulmonary abnormality. ECG: atrial fibrillation, HR 15O's. ASSESSMENT: 74 yo M with a hx of chronic respiratory failure 2/2 to COPD (3 L NC O2 dependant ATC) admitted to ICU for further treatment/management of atrial flutter with RVR (HRs 150s), cardiology consulted. PLAN: 1. Aflutter with RVR, new onset. Hx of significant lung disease, no infection t hat is identified. TSH wnl. HR improved on 7.5 cardizem gtt. Increasing PO cardizem to 60 mg PO Q6H as BP systolic 110-120 mmHg. C/w eliquis, cardizem gtt, cardizem PO Q6hrs s/p digoxin, amiodarone IV for uncontrolled HR today. Tele. Hoping to wean off gtt slowly today. Cardiology following closely. 2. Acute on chronic respiratory failure 2/2 to CHF exacerbation 2/2 to uncontrolled atrial flutter/atrial fibrillation. Currently saturating well on 2- 3 L NC, home amount. C/w diuresis with lasix 60 mg daily, cardizem gtt. D/jackie lisinopril 5 mg daily for now while on gtt, intermittent hypotension at times. 2D ECHO done, f/u results and cardiology recommendations. 3. COPD, not currently in exacerbation. On home amount of oxygen, saturating well. Albuterol PRN, incentive spirometer. 4. DVT ppx: eliquis 5 mg bid. DISPOSITION: Currently remains on cardizem gtt, plan is to wean off with incr eased cardizem PO. Remains in ICU care, if can wean down or off gtt, transition to PCU. Cardiology following closely. Will need PT/OT orders when HR better controlled VS, I&O, 24H, Fishbone Vital Signs/I&O Vital Signs Date Time Temp Pulse Resp B/P (MAP) Pulse Ox O2 Delivery O2 Flow Rate FiO2 02/26/20 12:31 109 111/59 02/26/20 10:00 18 95 Nasal Cannula 2.0 02/26/20 08:00 97.1 I&O- Last 24 Hours up to 6 AM 02/26/20 06:00 Intake Total 790 ml Output Total 2050 ml Balance -1260 ml Laboratory Data 24H LABS Laboratory Tests 2 02/26/20 05:30: Immature Granulocyte % (Auto) 0.5, Neutrophils (%) (Auto) 68.0H, Lymphocytes (%) (Auto) 17.8L, Monocytes (%) (Auto) 10.6H, Eosinophils (%) (Auto) 2.5, Basophils (%) (Auto) 0.6, Neutrophils # (Auto) 5.8, Lymphocytes # (Auto) 1.5, Monocytes # (Auto) 0.9H, Eosinophils # (Auto) 0.2, Basophils # (Auto) 0.1, Nucleated Red Blood Cells % (auto) 0.0, Anion Gap 6L, Glomerular Filtration Rate > 60.0, Calcium Level 9.3, Phosphorus Level 4.1, Magnesium Level 1.9, Total Bilirubin 1.2H, Aspartate Amino Transf (AST/SGOT) 28, Alanine Aminotransferase (ALT/SGPT) 83H, Alkaline Phosphatase 57, Total Protein 5.6L, Albumin 3.2, Albumin/Globulin Ratio 1.3, Thyroid Stimulating Hormone (TSH) 1.860 CBC/BMP Laboratory Tests 02/26/20 05:30 Microbiology Microbiology 02/23/20 Blood Culture - Preliminary, Resulted No Growth after 48 hours. All Specime... 02/23/20 Blood Culture - Preliminary, Resulted No Growth after 72 hours. All specime... Current Medications Current Medications Medications (Trade) Dose Ordered Sig/Ronal Route PRN Reason Start Time Stop Time Status Last Admin Dose Admin Acetaminophen (Tylenol Tab) 650 mg Q4H PRN PO PAIN OR FEVER 02/23/20 18:00 02/24/20 11:15 Acetylcysteine (Mucomyst 20% (200mg/ml)) 600 mg BID INH 02/23/20 21:00 02/24/20 10:30 DC Al Hydrox/Mg Hydrox/Simethicone (Mylanta) 30 ml DAILY PRN PO DYSPEPSIA 02/23/20 18:00 Albuterol Sulfate (Proventil, Ventolin Hfa) 2 puff Q4HP PRN INH wheezing 02/23/20 22:30 Amiodarone HCl 150 mg/IV Miscellaneous Supplies 100 ml @ 600 mls/hr STAT STAT IV 02/23/20 18:08 02/23/20 18:21 DC 02/23/20 18:08 Amiodarone HCl 150 mg/IV Miscellaneous Supplies 100 ml @ 600 mls/hr STAT STAT IV 02/24/20 09:08 02/24/20 09:17 DC 02/24/20 09:25 Amiodarone HCl 150 mg/IV Miscellaneous Supplies 100 ml @ 600 mls/hr STAT STAT IV 02/24/20 18:19 02/24/20 18:28 DC 02/24/20 18:28 Amiodarone HCl 150 mg/IV Miscellaneous Supplies 100 ml @ 600 mls/hr STAT STAT IV 02/25/20 11:13 02/25/20 11:22 DC 02/25/20 11:27 Amiodarone HCl 150 mg/IV Miscellaneous Supplies 100 ml @ 600 mls/hr STAT STAT IV 02/25/20 13:15 02/25/20 13:24 DC 02/25/20 13:20 Apixaban (Eliquis) 5 mg Q12H PO 02/23/20 21:00 02/26/20 09:19 Budesonide/ Formoterol Fumarate (Symbicort 160/ 4.5mcg) 2 puff BID INH 02/23/20 22:30 02/26/20 08:24 Budesonide/ Formoterol Fumarate (Symbicort 160/ 4.5mcg) 2 puff BID INH 02/24/20 09:00 02/23/20 22:25 DC Digoxin (Lanoxin) 0.25 mg Q6H IV 02/23/20 18:00 02/24/20 12:01 DC 02/24/20 11:14 Diltiazem HCl (Cardizem) 20 mg STAT STAT IV 02/23/20 13:42 02/23/20 13:46 DC 02/23/20 14:09 Diltiazem HCl (Cardizem) 30 mg Q6H PO 02/24/20 12:00 02/26/20 11:44 DC 02/26/20 06:06 Diltiazem HCl (Cardizem) 30 mg STAT STAT IV 02/23/20 14:50 02/23/20 14:53 DC 02/23/20 15:32 Diltiazem HCl (Cardizem) 60 mg Q6H PO 02/26/20 12:00 02/26/20 12:31 Diltiazem HCl 125 mg/Sodium Chloride 125 ml @ 10 mls/hr [id number] IV 02/25/20 18:03 UNV Diltiazem HCl 125 mg/Sodium Chloride 125 ml @ 1 mls/hr Q24H IV 02/23/20 15:00 02/23/20 15:48 DC Diltiazem HCl 125 mg/Sodium Chloride 125 ml @ 5 mls/hr Q24H IV 02/23/20 17:30 02/23/20 20:37 DC 02/23/20 17:45 Diltiazem HCl 125 mg/Sodium Chloride 125 ml @ 5 mls/hr Q24H IV 02/23/20 20:40 02/23/20 22:16 DC 02/23/20 21:09 Diltiazem HCl 125 mg/Sodium Chloride 125 ml @ 5 mls/hr Q24H IV 02/23/20 22:14 02/26/20 03:30 Doxycycline Hyclate (Vibramycin) 100 mg BID PO 02/23/20 21:00 02/26/20 09:19 Fluticasone Propionate (Flonase 0.05% Nasal [place]) 1 spray BID NA 02/24/20 09:00 02/26/20 09:19 Furosemide (LASIX injection) 40 mg Q8H IV 02/23/20 16:00 02/24/20 15:13 DC 02/24/20 08:04 Furosemide (LASIX injection) 60 mg DAILY IV 02/25/20 09:00 02/26/20 09:20 Guaifenesin (Robitussin Tab) 400 mg TID PRN PO COUGH 02/23/20 22:30 Home Med (Med Rec Complete!) ASDIRECTED XX 02/23/20 18:00 02/23/20 18:00 DC Levothyroxine Sodium (Synthroid) 125 mcg DAILY@0600 PO 02/24/20 06:00 02/26/20 06:06 Lisinopril (Prinivil) 5 mg DAILY PO 02/24/20 09:00 02/24/20 15:13 DC 02/24/20 09:41 Magnesium Hydroxide (Milk Of Magnesia) 30 ml DAILY PRN PO CONSTIPATION 02/23/20 18:00 Magnesium Oxide (Mag-Ox) 800 mg DAILY PO 02/25/20 09:00 02/26/20 09:19 Multivitamins (Ocuvite(I-Maddie)) 1 tab BID PO 02/25/20 21:00 Cancel Multivitamins (Ocuvite(I-Maddie)) 1 tab Q12H PO 02/25/20 18:00 02/26/20 06:06 Potassium Chloride (Micro-K Extencaps) 30 meq DAILY PO 02/25/20 09:00 02/26/20 09:19 Senna (Senokot) 1 tab BID PO 02/25/20 21:00 02/26/20 09:19 Simvastatin (Zocor) 40 mg QHS PO 02/24/20 21:00 02/25/20 21:07 Tamsulosin HCl (Flomax) 0.4 mg DAILY PO 02/24/20 09:00 02/26/20 09:19 Tiotropium [place] (Spiriva Handihaler) 1 inhalation DAILY INH 02/24/20 09:00 Cancel Tiotropium [place] (Spiriva Handihaler) 1 inhalation DAILY@0800 INH 02/23/20 22:30 02/26/20 08:23 Vitamin D (Vitamin D) 2,000 units DAILY PO 02/24/20 09:00 02/26/20 09:19 Allergies Coded Allergies: No Known Allergies (Unverified , 02/23/20) Jneny Ayala MD Feb 26, 2020 12:55
[2020-02-26] MEDS: SIMVASTATIN 40 MG TAB PO SCH (19:22)
[2020-02-27] VITALS: BP 108/58
[2020-02-27 04:00] VITALS: BP 104/55
[2020-02-27 04:57] LABS: BASO % 0.5 % (0.0-1.0); EOS # 0.3 10^3/uL (0.0-0.5); EOS % 3.1 % (0.0-3.0); HEMATOCRIT 41.5 % (42.0-52.0); HEMOGLOBIN 13.3 g/dl (13.5-17.5); LYMPH # 1.5 10^3/uL (1.5-5.0); LYMPH % 17.3 % (24.0-44.0); MEAN CORPUSCULAR HEMOGLOBIN 28.7 pg (27.0-33.0); MEAN CORPUSCULAR VOLUME 89.6 fl (80.0-96.0); MONO % 11.5 % (0.0-5.0); NEUTROPHILS # 5.9 10^3/uL (1.5-8.5); NEUTROPHILS % 67.3 % (36.0-66.0); PLATELET COUNT, AUTOMATED 237 10^3/uL (150-450); RED BLOOD COUNT 4.63 10^6/uL (4.30-6.10); WHITE BLOOD COUNT 8.7 10^3/uL (4.0-10.0)
[2020-02-27 05:12] LABS: ALBUMIN 3.4 GM/DL (3.2-5.2); ALT/SGPT 72 U/L (12-78); BILIRUBIN,TOTAL 1.2 MG/DL (0.2-1.0); BLOOD UREA NITROGEN 26 MG/DL (7-18); CALCIUM LEVEL 9.3 MG/DL (8.8-10.2); CARBON DIOXIDE LEVEL 36 MEQ/L (21-32); CHLORIDE LEVEL 100 MEQ/L (98-107); CREATININE FOR GFR 0.88 MG/DL (0.70-1.30); GLOMERULAR FILTRATION RATE > 60.0 (>42); GLUCOSE, FASTING 95 MG/DL (70-100); PHOSPHORUS LEVEL 3.8 MG/DL (2.5-4.9); SODIUM LEVEL 141 MEQ/L (136-145); TOTAL PROTEIN 6.3 GM/DL (6.4-8.2)
[2020-02-27] MEDS: LEVOTHYROXINE 125MCG TABLET (0.125MG) PO SCH (06:05)
[2020-02-27] MEDS: OCUVITE 1 TAB PO SCH ×2 (06:05→18:35)
[2020-02-27] MEDS: SYMBICORT 160/4.5MCG INHALER 6GM INH SCH ×2 (07:21→20:09)
[2020-02-27] MEDS: TIOTROPIUM INHALER/CAPSULE (SPIRIVA) INH SCH (07:22)
[2020-02-27 08:00] VITALS: BP 108/60
[2020-02-27] MEDS: FUROSEMIDE 100MG/10ML VIAL (J1940) IV SCH (08:06)
[2020-02-27] MEDS: FLUTICASONE PROP 0.05% NASAL SPRAY 16 GM (FLONASE) SCH ×2 (08:07→21:00)
[2020-02-27] MEDS: MAGNESIUM OXIDE 400 MG TAB (MAG-OX) PO SCH (08:07)
[2020-02-27] MEDS: SENNA 8.6 MG TAB (SENOKOT) PO SCH ×2 (08:07→21:16)
[2020-02-27] MEDS: APIXABAN 5 MG TAB (ELIQUIS) PO SCH ×2 (08:07→21:16)
[2020-02-27] MEDS: DOXYCYCLINE HYCLATE 100MG TABLET PO SCH ×2 (08:07→21:16)
[2020-02-27] MEDS: VITAMIN D 1,000 INTERNATIONAL UNITS TABLET PO SCH (08:07)
[2020-02-27] MEDS: TAMSULOSIN 0.4 MG CAP PO SCH (08:07)
[2020-02-27] MEDS: POTASSIUM CHLORIDE 10 MEQ SR TABLET PO SCH (08:07)
[2020-02-27] MEDS: PANTOPRAZOLE 20 MG TAB PO SCH (10:37)
[2020-02-27 11:20] VITALS: BP 134/64
[2020-02-27] MEDS ORDERED: DIGOXIN INJ 0.5 MG/2 ML AMP (J1160) IV ONE (13:15)
--- NOTE | 2020-02-27 15:14 | IPNPDOC ---
Date Seen The patient was seen on 02/27/20. Progress Note SUBJECTIVE: Off Cardizem gtt since evening of 02/26/20. HR spike with activity. Added PT/OT, OOBTC with meals. Denies current chest pain but admits to increased SOB at times. PHYSICAL EXAMINATION: VITAL SIGNS: please see below GENERAL APPEARANCE: NAD, in bed resting HEENT: PERRLA, EOMI CARDIOVASCULAR: irregularly irrregular rhythm, tachycardic. S1, S2. No murmur appreciated. LUNGS: no wheeze, no rales appreciated. Good air entry. Mild crackles diffusely ABDOMEN: soft, non tender. MUSCULOSKELETAL: no joint deformity. EXTREMITIES: 2+ edema bilaterally. NEUROLOGICAL: no focal neurological deficits. PSYCHIATRIC: AAO x 3, calm, pleasant, cooperative. LABORATORY DATA, IMAGING STUDIES, MICROBIOLOGY: Please see below ASSESSMENT: 74 yo M with a hx of chronic respiratory failure 2/2 to COPD (3 L NC O2 dependant ATC) admitted to ICU for further treatment/management of atrial flutter with RVR (HRs 150s), cardiology consulted. PLAN: 1. Aflutter with RVR, new onset. Better controlled on 60 mg PO Q6 HRs. C/w eliquis, Tele. Cardiology following closely. HR increased with activity, see how he does with PT/OT initiated today. 2. Acute on chronic respiratory failure 2/2 to CHF exacerbation 2/2 to uncontrolled atrial flutter/atrial fibrillation. Currently saturating well on 2- 3 L NC, home amount. C/w diuresis with lasix 60 mg daily, cardizem PO. D/jackie lisinopril 5 mg daily for now . 2D ECHO done, f/u cardiology recommendations. 3. COPD, not currently in exacerbation. On home amount of oxygen, saturating well. Albuterol PRN, incentive spirometer. 4. Weakness likely 2/2 to physical deconditioning due to acute illness. Starting PT/OT. F/u recommendations. 5. DVT ppx: eliquis 5 mg bid. DISPOSITION: Moved to PCU from ICU, improving slowly. PT/OT initiated VS, I&O, 24H, Fishbone Vital Signs/I&O Vital Signs Date Time Temp Pulse Resp B/P (MAP) Pulse Ox O2 Delivery O2 Flow Rate FiO2 02/27/20 13:33 122 02/27/20 11:20 98.4 20 134/64 (33) 94 Nasal Cannula 1.0 I&O- Last 24 Hours up to 6 AM 02/27/20 06:00 Intake Total 1028 ml Output Total 1975 ml Balance -947 ml Laboratory Data 24H LABS Laboratory Tests 2 02/27/20 04:30: Immature Granulocyte % (Auto) 0.3, Neutrophils (%) (Auto) 67.3H, Lymphocytes (%) (Auto) 17.3L, Monocytes (%) (Auto) 11.5H, Eosinophils (%) (Auto) 3.1H, Basophils (%) (Auto) 0.5, Neutrophils # (Auto) 5.9, Lymphocytes # (Auto) 1.5, Monocytes # (Auto) 1.0H, Eosinophils # (Auto) 0.3, Basophils # (Auto) 0.0, Nucleated Red Blood Cells % (auto) 0.0, Anion Gap 5L, Glomerular Filtration Rate > 60.0, Calcium Level 9.3, Phosphorus Level 3.8, Magnesium Level 2.0, Total Bilirubin 1.2H, Aspartate Amino Transf (AST/SGOT) 24, Alanine Aminotransferase (ALT/SGPT) 72, Alkaline Phosphatase 67, Total Protein 6.3L, Albumin 3.4, Albumin/Globulin Ratio 1.2, Thyroid Stimulating Hormone (TSH) 1.740 CBC/BMP Laboratory Tests 02/27/20 04:30 Microbiology Microbiology 02/23/20 Blood Culture - Preliminary, Resulted No Growth after 72 hours. All specime... 02/23/20 Blood Culture - Preliminary, Resulted No Growth after 72 hours. All specime... Current Medications Current Medications Medications (Trade) Dose Ordered Sig/Ronal Route PRN Reason Start Time Stop Time Status Last Admin Dose Admin Acetaminophen (Tylenol Tab) 650 mg Q4H PRN PO PAIN OR FEVER 02/23/20 18:00 02/24/20 11:15 Acetylcysteine (Mucomyst 20% (200mg/ml)) 600 mg BID INH 02/23/20 21:00 02/24/20 10:30 DC Al Hydrox/Mg Hydrox/Simethicone (Mylanta) 30 ml DAILY PRN PO DYSPEPSIA 02/23/20 18:00 Albuterol Sulfate (Proventil, Ventolin Hfa) 2 puff Q4HP PRN INH wheezing 02/23/20 22:30 Amiodarone HCl 150 mg/IV Miscellaneous Supplies 100 ml @ 600 mls/hr STAT STAT IV 02/23/20 18:08 02/23/20 18:21 DC 02/23/20 18:08 Amiodarone HCl 150 mg/IV Miscellaneous Supplies 100 ml @ 600 mls/hr STAT STAT IV 02/24/20 09:08 02/24/20 09:17 DC 02/24/20 09:25 Amiodarone HCl 150 mg/IV Miscellaneous Supplies 100 ml @ 600 mls/hr STAT STAT IV 02/24/20 18:19 02/24/20 18:28 DC 02/24/20 18:28 Amiodarone HCl 150 mg/IV Miscellaneous Supplies 100 ml @ 600 mls/hr STAT STAT IV 02/25/20 11:13 02/25/20 11:22 DC 02/25/20 11:27 Amiodarone HCl 150 mg/IV Miscellaneous Supplies 100 ml @ 600 mls/hr STAT STAT IV 02/25/20 13:15 02/25/20 13:24 DC 02/25/20 13:20 Apixaban (Eliquis) 5 mg Q12H PO 02/23/20 21:00 02/27/20 08:07 Budesonide/ Formoterol Fumarate (Symbicort 160/ 4.5mcg) 2 puff BID INH 02/23/20 22:30 02/27/20 07:21 Budesonide/ Formoterol Fumarate (Symbicort 160/ 4.5mcg) 2 puff BID INH 02/24/20 09:00 02/23/20 22:25 DC Digoxin (Lanoxin) 0.25 mg Q6H IV 02/23/20 18:00 02/24/20 12:01 DC 02/24/20 11:14 Diltiazem HCl (Cardizem) 20 mg STAT STAT IV 02/23/20 13:42 02/23/20 13:46 DC 02/23/20 14:09 Diltiazem HCl (Cardizem) 30 mg Q6H PO 02/24/20 12:00 02/26/20 11:44 DC 02/26/20 06:06 Diltiazem HCl (Cardizem) 30 mg STAT STAT IV 8/24/20 14:50 02/23/20 14:53 DC 02/23/20 15:32 Diltiazem HCl (Cardizem) 60 mg Q6H PO 02/26/20 12:00 02/27/20 10:53 Diltiazem HCl 125 mg/Sodium Chloride 125 ml @ 10 mls/hr [id number] IV 02/25/20 18:03 UNV Diltiazem HCl 125 mg/Sodium Chloride 125 ml @ 1 mls/hr Q24H IV 02/23/20 15:00 02/23/20 15:48 DC Diltiazem HCl 125 mg/Sodium Chloride 125 ml @ 5 mls/hr Q24H IV 02/23/20 17:30 02/23/20 20:37 DC 02/23/20 17:45 Diltiazem HCl 125 mg/Sodium Chloride 125 ml @ 5 mls/hr Q24H IV 02/23/20 20:40 02/23/20 22:16 DC 02/23/20 21:09 Diltiazem HCl 125 mg/Sodium Chloride 125 ml @ 5 mls/hr Q24H IV 02/23/20 22:14 Hold 02/26/20 03:30 Doxycycline Hyclate (Vibramycin) 100 mg BID PO 02/23/20 21:00 02/27/20 08:07 Fluticasone Propionate (Flonase 0.05% Nasal [place]) 1 spray BID NA 02/24/20 09:00 02/27/20 08:07 Furosemide (LASIX injection) 40 mg Q8H IV 02/23/20 16:00 02/24/20 15:13 DC 02/24/20 08:04 Furosemide (LASIX injection) 60 mg DAILY IV 02/25/20 09:00 02/27/20 08:06 Guaifenesin (Robitussin Tab) 400 mg TID PRN PO COUGH 02/23/20 22:30 Home Med (Med Rec Complete!) ASDIRECTED XX 02/23/20 18:00 02/23/20 18:00 DC Levothyroxine Sodium (Synthroid) 125 mcg DAILY@0600 PO 02/24/20 06:00 02/27/20 06:05 Lisinopril (Prinivil) 5 mg DAILY PO 02/24/20 09:00 02/24/20 15:13 DC 02/24/20 09:41 Magnesium Hydroxide (Milk Of Magnesia) 30 ml DAILY PRN PO CONSTIPATION 02/23/20 18:00 Magnesium Oxide (Mag-Ox) 800 mg DAILY PO 02/25/20 09:00 02/27/20 08:07 Multivitamins (Ocuvite(I-Maddie)) 1 tab BID PO 02/25/20 21:00 Cancel Multivitamins (Ocuvite(I-Maddie)) 1 tab Q12H PO 02/25/20 18:00 02/27/20 06:05 Pantoprazole Sodium (Protonix) 20 mg DAILY PO 02/27/20 09:00 02/27/20 10:37 Potassium Chloride (Micro-K Extencaps) 30 meq DAILY PO 02/25/20 09:00 02/27/20 08:07 Senna (Senokot) 1 tab BID PO 02/25/20 21:00 02/27/20 08:07 Simvastatin (Zocor) 40 mg QHS PO 02/24/20 21:00 02/26/20 19:22 Tamsulosin HCl (Flomax) 0.4 mg DAILY PO 02/24/20 09:00 02/27/20 08:07 Tiotropium [place] (Spiriva Handihaler) 1 inhalation DAILY INH 02/24/20 09:00 Cancel Tiotropium [place] (Spiriva Handihaler) 1 inhalation DAILY@0800 INH 02/23/20 22:30 02/27/20 07:22 Vitamin D (Vitamin D) 2,000 units DAILY PO 02/24/20 09:00 02/27/20 08:07 Allergies Coded Allergies: No Known Allergies (Unverified , 02/23/20) Jenny Ayala MD Feb 27, 2020 15:14
[2020-02-27 16:00] VITALS: BP 123/57
[2020-02-27 20:00] VITALS: BP 123/58
[2020-02-27] MEDS ORDERED: PILL CUTTER 1 EACH XX PRN (21:15)
[2020-02-27] MEDS: SIMVASTATIN 40 MG TAB PO SCH (21:16)
[2020-02-28] VITALS (7 sets, daily range): BP systolic 104–142; BP diastolic 55–82
[2020-02-28 04:44] LABS: BASO % 0.3 % (0.0-1.0); EOS # 0.3 10^3/uL (0.0-0.5); EOS % 2.7 % (0.0-3.0); HEMATOCRIT 43.3 % (42.0-52.0); LYMPH # 1.9 10^3/uL (1.5-5.0); LYMPH % 19.1 % (24.0-44.0); MEAN CORPUSCULAR HEMOGLOBIN 28.8 pg (27.0-33.0); MEAN CORPUSCULAR HGB CONC 32.3 g/dl (32.0-36.5); MEAN CORPUSCULAR VOLUME 89.1 fl (80.0-96.0); MONO # 1.2 10^3/uL (0.0-0.8); MONO % 11.9 % (0.0-5.0); NEUTROPHILS # 6.5 10^3/uL (1.5-8.5); NEUTROPHILS % 65.6 % (36.0-66.0); PLATELET COUNT, AUTOMATED 220 10^3/uL (150-450); RED BLOOD COUNT 4.86 10^6/uL (4.30-6.10); WHITE BLOOD COUNT 9.9 10^3/uL (4.0-10.0)
[2020-02-28 05:28] LABS: ALBUMIN 3.6 GM/DL (3.2-5.2); ALT/SGPT 62 U/L (12-78); BILIRUBIN,TOTAL 1.2 MG/DL (0.2-1.0); BLOOD UREA NITROGEN 31 MG/DL (7-18); CALCIUM LEVEL 9.5 MG/DL (8.8-10.2); CARBON DIOXIDE LEVEL 33 MEQ/L (21-32); CHLORIDE LEVEL 101 MEQ/L (98-107); CREATININE FOR GFR 0.84 MG/DL (0.70-1.30); GLOMERULAR FILTRATION RATE > 60.0 (>42); GLUCOSE, FASTING 100 MG/DL (70-100); MAGNESIUM LEVEL 2.1 MG/DL (1.8-2.4); PHOSPHORUS LEVEL 3.3 MG/DL (2.5-4.9); SODIUM LEVEL 140 MEQ/L (136-145); TOTAL PROTEIN 6.5 GM/DL (6.4-8.2)
[2020-02-28] MEDS: OCUVITE 1 TAB PO SCH ×2 (05:32→18:19)
[2020-02-28] MEDS: LEVOTHYROXINE 125MCG TABLET (0.125MG) PO SCH (05:32)
[2020-02-28] MEDS ORDERED: DIGOXIN 0.125 MG TAB As Ordered ONE (06:57)
[2020-02-28] MEDS: DIGOXIN 0.125 MG TAB PO SCH (06:59)
[2020-02-28] MEDS: SYMBICORT 160/4.5MCG INHALER 6GM INH SCH ×2 (07:54→19:49)
[2020-02-28] MEDS: TIOTROPIUM INHALER/CAPSULE (SPIRIVA) INH SCH (07:54)
[2020-02-28] MEDS: FUROSEMIDE 100MG/10ML VIAL (J1940) IV SCH (09:27)
[2020-02-28] MEDS: DOXYCYCLINE HYCLATE 100MG TABLET PO SCH (09:28)
[2020-02-28] MEDS: TAMSULOSIN 0.4 MG CAP PO SCH (09:28)
[2020-02-28] MEDS: VITAMIN D 1,000 INTERNATIONAL UNITS TABLET PO SCH (09:28)
[2020-02-28] MEDS: POTASSIUM CHLORIDE 10 MEQ SR TABLET PO SCH (09:29)
[2020-02-28] MEDS: SENNA 8.6 MG TAB (SENOKOT) PO SCH ×2 (09:30→21:01)
[2020-02-28] MEDS: APIXABAN 5 MG TAB (ELIQUIS) PO SCH ×2 (09:30→21:01)
[2020-02-28] MEDS: MAGNESIUM OXIDE 400 MG TAB (MAG-OX) PO SCH (09:30)
[2020-02-28] MEDS: PANTOPRAZOLE 20 MG TAB PO SCH (09:31)
[2020-02-28] MEDS: FLUTICASONE PROP 0.05% NASAL SPRAY 16 GM (FLONASE) SCH ×2 (09:34→21:00)
[2020-02-28] MEDS ORDERED: DIGOXIN INJ 0.5 MG/2 ML AMP (J1160) IV ONE ×2 (12:30→20:00)
--- NOTE | 2020-02-28 13:54 | IPNPDOC ---
Date Seen The patient was seen on 02/28/20. Progress Note SUBJECTIVE: HR increasead overnight, given extra dose of digoxin and cardizem. This AM more controlled, HR 107, asymptomatic. C/w PT/OT, OOBTC with meals. Denies current chest pain, increased sob. PHYSICAL EXAMINATION: VITAL SIGNS: please see below GENERAL APPEARANCE: NAD, in bed resting HEENT: PERRLA, EOMI CARDIOVASCULAR: irregularly irrregular rhythm, tachycardic. S1, S2. No murmur appreciated. LUNGS: no wheeze, no rales appreciated. Good air entry. Mild crackles diffusely ABDOMEN: soft, non tender. MUSCULOSKELETAL: no joint deformity. EXTREMITIES: 2+ edema bilaterally. NEUROLOGICAL: no focal neurological deficits. PSYCHIATRIC: AAO x 3, calm, pleasant, cooperative. LABORATORY DATA, IMAGING STUDIES, MICROBIOLOGY: Please see below ASSESSMENT: 74 yo M with a hx of chronic respiratory failure 2/2 to COPD (3 L NC O2 dependant ATC) admitted to ICU for further treatment/management of atrial flutter with RVR. PLAN: 1. Aflutter with RVR, new onset. C/w cardizem 60 mg PO Q6 HRs, eliquis, Tele. Cardiology following closely. 2. Acute on chronic respiratory failure 2/2 to CHF exacerbation 2/2 to uncontrolled atrial flutter/atrial fibrillation. Currently saturating well on 2- 3 L NC, home amount. C/w diuresis with lasix 60 mg daily, cardizem PO. D/jackie lisinopril 5 mg daily for now . 2D ECHO done. 3. COPD, not currently in exacerbation. On home amount of oxygen, saturating we ll. Albuterol PRN, incentive spirometer. 4. Weakness likely 2/2 to physical deconditioning due to acute illness. Starting PT/OT. F/u recommendations. 5. DVT ppx: eliquis 5 mg bid. DISPOSITION: PT/OT initiated, monitoring HR with increased activity. Plan is home when medically improved. VS, I&O, 24H, Fishbone Vital Signs/I&O Vital Signs Date Time Temp Pulse Resp B/P (MAP) Pulse Ox O2 Delivery O2 Flow Rate FiO2 02/28/20 12:52 122 02/28/20 12:00 97.9 18 115/78 (90) 97 Nasal Cannula 2.0 I&O- Last 24 Hours up to 6 AM 02/28/20 06:00 Intake Total 760 ml Output Total 1375 ml Balance -615 ml Laboratory Data 24H LABS Laboratory Tests 2 02/28/20 04:37: Immature Granulocyte % (Auto) 0.4, Neutrophils (%) (Auto) 65.6, Lymphocytes (%) (Auto) 19.1L, Monocytes (%) (Auto) 11.9H, Eosinophils (%) (Auto) 2.7, Basophils (%) (Auto) 0.3, Neutrophils # (Auto) 6.5, Lymphocytes # (Auto) 1.9, Monocytes # (Auto) 1.2H, Eosinophils # (Auto) 0.3, Basophils # (Auto) 0.0, Nucleated Red Blood Cells % (auto) 0.0, Anion Gap 6L, Glomerular Filtration Rate > 60.0, Calcium Level 9.5, Phosphorus Level 3.3, Magnesium Level 2.1, Total Bilirubin 1.2H, Aspartate Amino Transf (AST/SGOT) 19, Alanine Aminotransferase (ALT/SGPT) 62, Alkaline Phosphatase 66, Troponin I < 0.02, Total Protein 6.5, Albumin 3.6, Albumin/Globulin Ratio 1.2, Thyroid Stimulating Hormone (TSH) 1.440 CBC/BMP Laboratory Tests 02/28/20 04:37 Microbiology Microbiology 02/23/20 Blood Culture - Preliminary, Resulted No Growth after 72 hours. All specime... 02/23/20 Blood Culture - Final, Complete NO GROWTH AFTER 5 DAYS Current Medications Current Medications Medications (Trade) Dose Ordered Sig/Ronal Route PRN Reason Start Time Stop Time Status Last Admin Dose Admin Acetaminophen (Tylenol Tab) 650 mg Q4H PRN PO PAIN OR FEVER 02/23/20 18:00 02/24/20 11:15 Acetylcysteine (Mucomyst 20% (200mg/ml)) 600 mg BID INH 02/23/20 21:00 02/24/20 10:30 DC Al Hydrox/Mg Hydrox/Simethicone (Mylanta) 30 ml DAILY PRN PO DYSPEPSIA 02/23/20 18:00 Albuterol Sulfate (Proventil, Ventolin Hfa) 2 puff Q4HP PRN INH wheezing 02/23/20 22:30 Amiodarone HCl 150 mg/IV Miscellaneous Supplies 100 ml @ 600 mls/hr STAT STAT IV 02/23/20 18:08 02/23/20 18:21 DC 02/23/20 18:08 Amiodarone HCl 150 mg/IV Miscellaneous Supplies 100 ml @ 600 mls/hr STAT STAT IV 02/24/20 09:08 02/24/20 09:17 DC 02/24/20 09:25 Amiodarone HCl 150 mg/IV Miscellaneous Supplies 100 ml @ 600 mls/hr STAT STAT IV 02/24/20 18:19 02/24/20 18:28 DC 02/24/20 18:28 Amiodarone HCl 150 mg/IV Miscellaneous Supplies 100 ml @ 600 mls/hr STAT STAT IV 02/25/20 11:13 02/25/20 11:22 DC 02/25/20 11:27 Amiodarone HCl 150 mg/IV Miscellaneous Supplies 100 ml @ 600 mls/hr STAT STAT IV 02/25/20 13:15 02/25/20 13:24 DC 02/25/20 13:20 Apixaban (Eliquis) 5 mg Q12H PO 02/23/20 21:00 02/28/20 09:30 Budesonide/ Formoterol Fumarate (Symbicort 160/ 4.5mcg) 2 puff BID INH 02/23/20 22:30 02/28/20 07:54 Budesonide/ Formoterol Fumarate (Symbicort 160/ 4.5mcg) 2 puff BID INH 02/24/20 09:00 02/23/20 22:25 DC Digoxin (Lanoxin) 0.125 mg DAILY PO 02/28/20 09:00 02/28/20 06:59 Digoxin (Lanoxin) 0.25 mg Q6H IV 02/23/20 18:00 02/24/20 12:01 DC 02/24/20 11:14 Diltiazem HCl (Cardizem) 20 mg STAT STAT IV 02/23/20 13:42 02/23/20 13:46 DC 02/23/20 14:09 Diltiazem HCl (Cardizem) 30 mg Q6H PO 02/24/20 12:00 02/26/20 11:44 DC 02/26/20 06:06 Diltiazem HCl (Cardizem) 30 mg STAT STAT IV 02/23/20 14:50 02/23/20 14:53 DC 02/23/20 15:32 Diltiazem HCl (Cardizem) 60 mg Q6H PO 02/26/20 12:00 02/27/20 20:50 DC 02/27/20 18:36 Diltiazem HCl (Cardizem) 90 mg Q6H PO 02/28/20 00:00 02/28/20 11:58 Diltiazem HCl 125 mg/Sodium Chloride 125 ml @ 10 mls/hr [id number] IV 02/25/20 18:03 UNV Diltiazem HCl 125 mg/Sodium Chloride 125 ml @ 1 mls/hr Q24H IV 02/23/20 15:00 02/23/20 15:48 DC Diltiazem HCl 125 mg/Sodium Chloride 125 ml @ 5 mls/hr Q24H IV 02/23/20 17:30 02/23/20 20:37 DC 02/23/20 17:45 Diltiazem HCl 125 mg/Sodium Chloride 125 ml @ 5 mls/hr Q24H IV 02/23/20 20:40 02/23/20 22:16 DC 02/23/20 21:09 Diltiazem HCl 125 mg/Sodium Chloride 125 ml @ 5 mls/hr Q24H IV 02/23/20 22:14 02/27/20 16:44 DC 02/26/20 03:30 Doxycycline Hyclate (Vibramycin) 100 mg BID PO 02/23/20 21:00 02/28/20 09:28 Fluticasone Propionate (Flonase 0.05% Nasal [place]) 1 spray BID NA 02/24/20 09:00 02/28/20 09:34 Furosemide (LASIX injection) 40 mg Q8H IV 02/23/20 16:00 02/24/20 15:13 DC 02/24/20 08:04 Furosemide (LASIX injection) 60 mg DAILY IV 02/25/20 09:00 02/28/20 09:27 Guaifenesin (Robitussin Tab) 400 mg TID PRN PO COUGH 02/23/20 22:30 Home Med (Med Rec Complete!) ASDIRECTED XX 02/23/20 18:00 02/23/20 18:00 DC Levothyroxine Sodium (Synthroid) 125 mcg DAILY@0600 PO 02/24/20 06:00 02/28/20 05:32 Lisinopril (Prinivil) 5 mg DAILY PO 02/24/20 09:00 02/24/20 15:13 DC 02/24/20 09:41 Magnesium Hydroxide (Milk Of Magnesia) 30 ml DAILY PRN PO CONSTIPATION 02/23/20 18:00 Magnesium Oxide (Mag-Ox) 800 mg DAILY PO 02/25/20 09:00 02/28/20 09:30 Miscellaneous (Unresolved Clarification Entry) SEE LABEL COMMENTS DAILY XX 02/27/20 09:00 Multivitamins (Ocuvite(I-Maddie)) 1 tab BID PO 02/25/20 21:00 Cancel Multivitamins (Ocuvite(I-Maddie)) 1 tab Q12H PO 02/25/20 18:00 02/28/20 05:32 Pantoprazole Sodium (Protonix) 20 mg DAILY PO 02/27/20 09:00 02/28/20 09:31 Potassium Chloride (Micro-K Extencaps) 30 meq DAILY PO 02/25/20 09:00 02/28/20 09:29 Senna (Senokot) 1 tab BID PO 02/25/20 21:00 02/28/20 09:30 Simvastatin (Zocor) 40 mg QHS PO 02/24/20 21:00 02/27/20 21:16 Tamsulosin HCl (Flomax) 0.4 mg DAILY PO 02/24/20 09:00 02/28/20 09:28 Tiotropium [place] (Spiriva Handihaler) 1 inhalation DAILY INH 02/24/20 09:00 Cancel Tiotropium [place] (Spiriva Handihaler) 1 inhalation DAILY@0800 INH 02/23/20 22:30 02/28/20 07:54 Vitamin D (Vitamin D) 2,000 units DAILY PO 02/24/20 09:00 02/28/20 09:28 Allergies Coded Allergies: No Known Allergies (Unverified , 02/23/20) Jenny Ayala MD Feb 28, 2020 13:54
[2020-02-28] MEDS: SIMVASTATIN 40 MG TAB PO SCH (21:01)
[2020-02-29] VITALS: BP 109/56
[2020-02-29 04:00] VITALS: BP 114/58
[2020-02-29] MEDS: LEVOTHYROXINE 125MCG TABLET (0.125MG) PO SCH (05:30)
[2020-02-29] MEDS: OCUVITE 1 TAB PO SCH ×2 (05:30→18:04)
[2020-02-29 05:31] LABS: HEMATOCRIT 41.3 % (42.0-52.0); HEMOGLOBIN 13.1 g/dl (13.5-17.5); MEAN CORPUSCULAR HEMOGLOBIN 28.7 pg (27.0-33.0); MEAN CORPUSCULAR HGB CONC 31.7 g/dl (32.0-36.5); MEAN CORPUSCULAR VOLUME 90.4 fl (80.0-96.0); PLATELET COUNT, AUTOMATED 212 10^3/uL (150-450); RED BLOOD COUNT 4.57 10^6/uL (4.30-6.10); WHITE BLOOD COUNT 9.9 10^3/uL (4.0-10.0)
[2020-02-29 05:50] LABS: ALBUMIN 3.3 GM/DL (3.2-5.2); ALT/SGPT 57 U/L (12-78); BILIRUBIN,TOTAL 1.1 MG/DL (0.2-1.0); BLOOD UREA NITROGEN 34 MG/DL (7-18); CARBON DIOXIDE LEVEL 33 MEQ/L (21-32); CHLORIDE LEVEL 102 MEQ/L (98-107); CREATININE FOR GFR 0.94 MG/DL (0.70-1.30); GLOMERULAR FILTRATION RATE > 60.0 (>42); GLUCOSE, FASTING 90 MG/DL (70-100); POTASSIUM SERUM 3.9 MEQ/L (3.5-5.1); SODIUM LEVEL 139 MEQ/L (136-145); TOTAL PROTEIN 6.5 GM/DL (6.4-8.2)
[2020-02-29 08:00] VITALS: BP 128/64
[2020-02-29] MEDS: TIOTROPIUM INHALER/CAPSULE (SPIRIVA) INH SCH (08:54)
[2020-02-29] MEDS: SYMBICORT 160/4.5MCG INHALER 6GM INH SCH ×2 (08:55→20:06)
[2020-02-29] MEDS ORDERED: DOCUSATE SODIUM 100 MG CAP PO SCH (09:00)
[2020-02-29] MEDS: FUROSEMIDE 20 MG TAB PO SCH (09:00)
[2020-02-29] MEDS ORDERED: MIRALAX *UNIT DOSE* 17GM PACKET PO PRN (10:00)
[2020-02-29] MEDS: SENNA 8.6 MG TAB (SENOKOT) PO SCH ×2 (10:06→20:59)
[2020-02-29] MEDS: PANTOPRAZOLE 20 MG TAB PO SCH (10:16)
[2020-02-29] MEDS: APIXABAN 5 MG TAB (ELIQUIS) PO SCH ×2 (10:17→20:59)
[2020-02-29] MEDS: DIGOXIN 0.125 MG TAB PO SCH (10:17)
[2020-02-29] MEDS: MAGNESIUM OXIDE 400 MG TAB (MAG-OX) PO SCH (10:18)
[2020-02-29] MEDS: TAMSULOSIN 0.4 MG CAP PO SCH (10:18)
[2020-02-29] MEDS: POTASSIUM CHLORIDE 10 MEQ SR TABLET PO SCH (10:19)
[2020-02-29] MEDS: FLUTICASONE PROP 0.05% NASAL SPRAY 16 GM (FLONASE) SCH ×2 (10:19→21:00)
[2020-02-29] MEDS: VITAMIN D 1,000 INTERNATIONAL UNITS TABLET PO SCH (10:19)
[2020-02-29] MEDS ORDERED: LACTULOSE 20 GM/30 ML SYRUP UD PO ONE (11:00)
[2020-02-29 12:00] VITALS: BP 140/82
--- NOTE | 2020-02-29 12:35 | IPNPDOC ---
Date Seen The patient was seen on 02/29/20. Progress Note SUBJECTIVE: HR better controlled overnight, 80's. PT: unsafe for home at this time, c/w therapy. Ordered bowel regimen as he has had no BM in almost 1 week. Denies current chest pain, increased sob. PHYSICAL EXAMINATION: VITAL SIGNS: please see below GENERAL APPEARANCE: NAD, in bed resting HEENT: PERRLA, EOMI CARDIOVASCULAR: irregularly irrregular rhythm. S1, S2. No murmur appreciated. LUNGS: no wheeze, no rales appreciated. Good air entry. Mild crackles diffusely ABDOMEN: soft, non tender. MUSCULOSKELETAL: no joint deformity. EXTREMITIES: 2+ edema bilaterally. NEUROLOGICAL: no focal neurological deficits. PSYCHIATRIC: AAO x 3, calm, pleasant, cooperative. LABORATORY DATA, IMAGING STUDIES, MICROBIOLOGY: Please see below ASSESSMENT: 74 yo M with a hx of chronic respiratory failure 2/2 to COPD (3 L NC O2 dependant ATC) admitted to ICU for further treatment/management of atrial f lutter with RVR. PLAN: 1. Aflutter, new onset. Rate controlled currently. Echo done. C/w cardizem 60 mg PO Q6 HRs, eliquis, Tele. Cardiology consulted. 2. Acute on chronic respiratory failure 2/2 to CHF exacerbation 2/2 to uncontrolled atrial flutter/atrial fibrillation. Currently saturating well on 2- 3 L NC, home amount. Decreased diuretic to 20 mg PO daily, c/w lasix 60 mg daily, cardizem PO. D/jackie lisinopril 5 mg daily for now. ECHO done. 3. COPD, not currently in exacerbation. On home amount of oxygen, saturating well. Albuterol PRN, incentive spirometer. 4. Weakness likely 2/2 to physical deconditioning due to acute illness. PT/OT: Not safe for discharge home current. C/w PT/OT. F/u recommendations. 5. DVT ppx: eliquis 5 mg bid. DISPOSITION: PT/OT, monitoring HR with increased activity. Plan is home when medically improved. VS, I&O, 24H, Fishbone Vital Signs/I&O Vital Signs Date Time Temp Pulse Resp B/P (MAP) Pulse Ox O2 Delivery O2 Flow Rate FiO2 02/29/20 10:17 88 02/29/20 08:00 97.6 18 128/64 (85) 94 Nasal Cannula 2.0 I&O- Last 24 Hours up to 6 AM 02/29/20 06:00 Intake Total 1600 ml Output Total 2125 ml Balance -525 ml Laboratory Data 24H LABS Laboratory Tests 2 02/29/20 04:45: Nucleated Red Blood Cells % (auto) 0.0, Anion Gap 4L, Glomerular Filtration Rate > 60.0, Calcium Level 9.0, Total Bilirubin 1.1H, Aspartate Amino Transf (AST/SGOT) 22, Alanine Aminotransferase (ALT/SGPT) 57, Alkaline Phosphatase 64, Total Protein 6.5, Albumin 3.3, Albumin/Globulin Ratio 1.0 CBC/BMP Laboratory Tests 02/29/20 04:45 Microbiology Microbiology 02/23/20 Blood Culture - Final, Complete NO GROWTH AFTER 5 DAYS 02/23/20 Blood Culture - Final, Complete NO GROWTH AFTER 5 DAYS Current Medications Current Medications Medications (Trade) Dose Ordered Sig/Ronal Route PRN Reason Start Time Stop Time Status Last Admin Dose Admin Acetaminophen (Tylenol Tab) 650 mg Q4H PRN PO PAIN OR FEVER 02/23/20 18:00 02/24/20 11:15 Acetylcysteine (Mucomyst 20% (200mg/ml)) 600 mg BID INH 02/23/20 21:00 02/24/20 10:30 DC Al Hydrox/Mg Hydrox/Simethicone (Mylanta) 30 ml DAILY PRN PO DYSPEPSIA 02/23/20 18:00 Albuterol Sulfate (Proventil, Ventolin Hfa) 2 puff Q4HP PRN INH wheezing 02/23/20 22:30 Amiodarone HCl 150 mg/IV Miscellaneous Supplies 100 ml @ 600 mls/hr STAT STAT IV 02/23/20 18:08 02/23/20 18:21 DC 02/23/20 18:08 Amiodarone HCl 150 mg/IV Miscellaneous Supplies 100 ml @ 600 mls/hr STAT STAT IV 02/24/20 09:08 02/24/20 09:17 DC 02/24/20 09:25 Amiodarone HCl 150 mg/IV Miscellaneous Supplies 100 ml @ 600 mls/hr STAT STAT IV 02/24/20 18:19 02/24/20 18:28 DC 02/24/20 18:28 Amiodarone HCl 150 mg/IV Miscellaneous Supplies 100 ml @ 600 mls/hr STAT STAT IV 02/25/20 11:13 02/25/20 11:22 DC 02/25/20 11:27 Amiodarone HCl 150 mg/IV Miscellaneous Supplies 100 ml @ 600 mls/hr STAT STAT IV 02/25/20 13:15 02/25/20 13:24 DC 02/25/20 13:20 Apixaban (Eliquis) 5 mg Q12H PO 02/23/20 21:00 02/29/20 10:17 Budesonide/ Formoterol Fumarate (Symbicort 160/ 4.5mcg) 2 puff BID INH 02/23/20 22:30 02/29/20 08:55 Budesonide/ Formoterol Fumarate (Symbicort 160/ 4.5mcg) 2 puff BID INH 02/24/20 09:00 02/23/20 22:25 DC Digoxin (Lanoxin) 0.125 mg DAILY PO 02/28/20 09:00 02/29/20 10:17 Digoxin (Lanoxin) 0.25 mg Q6H IV 02/23/20 18:00 02/24/20 12:01 DC 02/24/20 11:14 Diltiazem HCl (Cardizem) 20 mg STAT STAT IV 02/23/20 13:42 02/23/20 13:46 DC 02/23/20 14:09 Diltiazem HCl (Cardizem) 30 mg Q6H PO 02/24/20 12:00 02/26/20 11:44 DC 02/26/20 06:06 Diltiazem HCl (Cardizem) 30 mg STAT STAT IV 02/23/20 14:50 02/23/20 14:53 DC 02/23/20 15:32 Diltiazem HCl (Cardizem) 60 mg Q6H PO 02/26/20 12:00 02/27/20 20:50 DC 02/27/20 18:36 Diltiazem HCl (Cardizem) 90 mg Q6H PO 02/28/20 00:00 02/29/20 05:31 Diltiazem HCl 125 mg/Sodium Chloride 125 ml @ 10 mls/hr [id number] IV 02/25/20 18:03 UNV Diltiazem HCl 125 mg/Sodium Chloride 125 ml @ 1 mls/hr Q24H IV 02/23/20 15:00 02/23/20 15:48 DC Diltiazem HCl 125 mg/Sodium Chloride 125 ml @ 5 mls/hr Q24H IV 02/23/20 17:30 02/23/20 20:37 DC 02/23/20 17:45 Diltiazem HCl 125 mg/Sodium Chloride 125 ml @ 5 mls/hr Q24H IV 02/23/20 20:40 02/23/20 22:16 DC 02/23/20 21:09 Diltiazem HCl 125 mg/Sodium Chloride 125 ml @ 5 mls/hr Q24H IV 02/23/20 22:14 02/27/20 16:44 DC 02/26/20 03:30 Docusate Sodium (Colace) 100 mg BID PO 02/29/20 09:00 Doxycycline Hyclate (Vibramycin) 100 mg BID PO 02/23/20 21:00 02/28/20 13:56 DC 02/28/20 09:28 Fluticasone Propionate (Flonase 0.05% Nasal [place]) 1 spray BID NA 02/24/20 09:00 02/29/20 10:19 Furosemide (LASIX injection) 40 mg Q8H IV 02/23/20 16:00 02/24/20 15:13 DC 02/24/20 08:04 Furosemide (LASIX injection) 60 mg DAILY IV 02/25/20 09:00 02/29/20 10:02 DC 02/28/20 09:27 Furosemide (Lasix) 20 mg DAILY PO 02/29/20 09:00 Guaifenesin (Robitussin Tab) 400 mg TID PRN PO COUGH 02/23/20 22:30 Home Med (Med Rec Complete!) ASDIRECTED XX 02/23/20 18:00 02/23/20 18:00 DC Levothyroxine Sodium (Synthroid) 125 mcg DAILY@0600 PO 02/24/20 06:00 02/29/20 05:30 Lisinopril (Prinivil) 5 mg DAILY PO 02/24/20 09:00 02/24/20 15:13 DC 02/24/20 09:41 Magnesium Hydroxide (Milk Of Magnesia) 30 ml DAILY PRN PO CONSTIPATION 02/23/20 18:00 Magnesium Oxide (Mag-Ox) 800 mg DAILY PO 02/25/20 09:00 02/29/20 10:18 Miscellaneous (Unresolved Clarification Entry) SEE LABEL COMMENTS DAILY XX 02/27/20 09:00 02/28/20 14:03 DC Multivitamins (Ocuvite(I-Maddie)) 1 tab BID PO 02/25/20 21:00 Cancel Multivitamins (Ocuvite(I-Maddie)) 1 tab Q12H PO 02/25/20 18:00 02/29/20 05:30 Pantoprazole Sodium (Protonix) 20 mg DAILY PO 02/27/20 09:00 02/29/20 10:16 Polyethylene Glycol (Miralax) 1 pkt DAILYPRN PRN PO CONSTIPATION 02/29/20 10:00 Potassium Chloride (Micro-K Extencaps) 30 meq DAILY PO 02/25/20 09:00 02/29/20 10:19 Senna (Senokot) 1 tab BID PO 02/25/20 21:00 02/29/20 10:06 Simvastatin (Zocor) 40 mg QHS PO 02/24/20 21:00 02/28/20 21:01 Tamsulosin HCl (Flomax) 0.4 mg DAILY PO 02/24/20 09:00 02/29/20 10:18 Tiotropium [place] (Spiriva Handihaler) 1 inhalation DAILY INH 02/24/20 09:00 Cancel Tiotropium [place] (Spiriva Handihaler) 1 inhalation DAILY@0800 INH 02/23/20 22:30 02/29/20 08:54 Vitamin D (Vitamin D) 2,000 units DAILY PO 02/24/20 09:00 02/29/20 10:19 Allergies Coded Allergies: No Known Allergies (Unverified , 02/23/20) Jenny Ayala MD Feb 29, 2020 12:35
[2020-02-29 16:00] VITALS: BP 104/60
[2020-02-29 20:00] VITALS: BP 113/53
[2020-02-29] MEDS: SIMVASTATIN 40 MG TAB PO SCH (20:59)
[2020-03-01] VITALS (7 sets, daily range): BP systolic 107–129; BP diastolic 52–77
[2020-03-01 04:47] LABS: HEMATOCRIT 42.3 % (42.0-52.0); HEMOGLOBIN 13.4 g/dl (13.5-17.5); MEAN CORPUSCULAR HEMOGLOBIN 28.6 pg (27.0-33.0); MEAN CORPUSCULAR HGB CONC 31.7 g/dl (32.0-36.5); MEAN CORPUSCULAR VOLUME 90.2 fl (80.0-96.0); PLATELET COUNT, AUTOMATED 217 10^3/uL (150-450); RED BLOOD COUNT 4.69 10^6/uL (4.30-6.10); WHITE BLOOD COUNT 8.6 10^3/uL (4.0-10.0)
[2020-03-01 05:23] LABS: ALBUMIN 3.5 GM/DL (3.2-5.2); ALT/SGPT 56 U/L (12-78); BILIRUBIN,TOTAL 0.9 MG/DL (0.2-1.0); BLOOD UREA NITROGEN 34 MG/DL (7-18); CALCIUM LEVEL 9.2 MG/DL (8.8-10.2); CARBON DIOXIDE LEVEL 35 MEQ/L (21-32); CHLORIDE LEVEL 102 MEQ/L (98-107); CREATININE FOR GFR 0.93 MG/DL (0.70-1.30); GLOMERULAR FILTRATION RATE > 60.0 (>42); GLUCOSE, FASTING 93 MG/DL (70-100); POTASSIUM SERUM 4.1 MEQ/L (3.5-5.1); SODIUM LEVEL 141 MEQ/L (136-145); TOTAL PROTEIN 6.2 GM/DL (6.4-8.2)
[2020-03-01] MEDS: LEVOTHYROXINE 125MCG TABLET (0.125MG) PO SCH (05:29)
[2020-03-01] MEDS: OCUVITE 1 TAB PO SCH ×2 (05:29→17:19)
[2020-03-01] MEDS: MAGNESIUM OXIDE 400 MG TAB (MAG-OX) PO SCH (08:03)
[2020-03-01] MEDS: APIXABAN 5 MG TAB (ELIQUIS) PO SCH ×2 (08:03→20:03)
[2020-03-01] MEDS: TAMSULOSIN 0.4 MG CAP PO SCH (08:04)
[2020-03-01] MEDS: FUROSEMIDE 20 MG TAB PO SCH (08:04)
[2020-03-01] MEDS: VITAMIN D 1,000 INTERNATIONAL UNITS TABLET PO SCH (08:04)
[2020-03-01] MEDS: POTASSIUM CHLORIDE 10 MEQ SR TABLET PO SCH (08:04)
[2020-03-01] MEDS: diltiaZEM **CD** 180 MG CAP PO SCH (08:04)
[2020-03-01] MEDS: SENNA 8.6 MG TAB (SENOKOT) PO SCH ×2 (08:04→20:03)
[2020-03-01] MEDS: PANTOPRAZOLE 20 MG TAB PO SCH (08:05)
[2020-03-01] MEDS: DIGOXIN 0.125 MG TAB PO SCH (08:05)
[2020-03-01] MEDS: FLUTICASONE PROP 0.05% NASAL SPRAY 16 GM (FLONASE) SCH ×3 (08:05→20:04)
[2020-03-01] MEDS: SYMBICORT 160/4.5MCG INHALER 6GM INH SCH ×2 (08:36→19:19)
[2020-03-01] MEDS: TIOTROPIUM INHALER/CAPSULE (SPIRIVA) INH SCH (08:36)
[2020-03-01] MEDS ORDERED: SLF 3 ML SYR IV PRN (10:45)
[2020-03-01] MEDS: SLF 3 ML SYR IV SCH ×2 (12:15→20:03)
--- NOTE | 2020-03-01 13:24 | IPNPDOC ---
Date Seen The patient was seen on 03/01/20. Progress Note SUBJECTIVE: HR remains controlled in 80's, tachycardia with HR in 130-140 when up with activity. PT: unsafe for home at this time. Denies current chest pain, increased sob. PHYSICAL EXAMINATION: VITAL SIGNS: please see below GENERAL APPEARANCE: NAD, in bed resting HEENT: PERRLA, EOMI CARDIOVASCULAR: atrial flutter rhythm. S1, S2. No murmur appreciated. LUNGS: no wheeze, no rales appreciated. Good air entry. Mild crackles diffusely ABDOMEN: soft, non tender. MUSCULOSKELETAL: no joint deformity. EXTREMITIES: No edema, no cyanosis. NEUROLOGICAL: no focal neurological deficits. PSYCHIATRIC: AAO x 3, calm, pleasant, cooperative. LABORATORY DATA, IMAGING STUDIES, MICROBIOLOGY: Please see below ASSESSMENT: 74 yo M with a hx of chronic respiratory failure 2/2 to COPD (3 L NC O2 dependant ATC) admitted to ICU for further treatment/management of atrial flutter with RVR. PLAN: 1. Aflutter, new onset. Rate controlled currently. Echo done. C/w cardizem 60 mg PO Q6 HRs, eliquis, Tele. Cardiology consulted. 2. Weakness likely 2/2 to physical deconditioning due to acute illness. PT/OT: Not safe for discharge at this time. C/w PT/OT. F/u recommendations. 3. Acute on chronic respiratory failure 2/2 to CHF exacerbation 2/2 to uncontrolled atrial flutter/atrial fibrillation. Currently saturating well on 2- 3 L NC, home amount. C/w lasix 20 mg PO daily, cardizem PO. Holding for li sinopril 5 mg daily for now. ECHO done. 4. COPD, not currently in exacerbation. On home amount of oxygen, saturating well. Albuterol PRN, incentive spirometer. 5. Constipation. 1 bowel movement overnight. C/w current regimen. 6. DVT ppx. Eliquis 5 mg bid. DISPOSITION: PT/OT, monitoring HR with increased activity. Plan is home when medically improved. VS, I&O, 24H, Fishbone Vital Signs/I&O Vital Signs Date Time Temp Pulse Resp B/P (MAP) Pulse Ox O2 Delivery O2 Flow Rate FiO2 03/01/20 12:00 2.0 03/01/20 12:00 97.8 95 24 107/59 (75) 96 Nasal Cannula I&O- Last 24 Hours up to 6 AM 03/01/20 06:00 Intake Total 2010 ml Output Total 1175 ml Balance 835 ml Laboratory Data 24H LABS Laboratory Tests 2 03/01/20 03:33: Nucleated Red Blood Cells % (auto) 0.0, Anion Gap 4L, Glomerular Filtration Rate > 60.0, Calcium Level 9.2, Total Bilirubin 0.9, Aspartate Amino Transf (AST/SGOT) 22, Alanine Aminotransferase (ALT/SGPT) 56, Alkaline Phosphatase 71, Total Protein 6.2L, Albumin 3.5, Albumin/Globulin Ratio 1.3 CBC/BMP Laboratory Tests 03/01/20 03:33 Microbiology Microbiology 02/23/20 Blood Culture - Final, Complete NO GROWTH AFTER 5 DAYS 02/23/20 Blood Culture - Final, Complete NO GROWTH AFTER 5 DAYS Current Medications Current Medications Medications (Trade) Dose Ordered Sig/Ronal Route PRN Reason Start Time Stop Time Status Last Admin Dose Admin Acetaminophen (Tylenol Tab) 650 mg Q4H PRN PO PAIN OR FEVER 02/23/20 18:00 02/24/20 11:15 Acetylcysteine (Mucomyst 20% (200mg/ml)) 600 mg BID INH 02/23/20 21:00 02/24/20 10:30 DC Al Hydrox/Mg Hydrox/Simethicone (Mylanta) 30 ml DAILY PRN PO DYSPEPSIA 02/23/20 18:00 Albuterol Sulfate (Proventil, Ventolin Hfa) 2 puff Q4HP PRN INH wheezing 02/23/20 22:30 Amiodarone HCl 150 mg/IV Miscellaneous Supplies 100 ml @ 600 mls/hr STAT STAT IV 02/23/20 18:08 02/23/20 18:21 DC 02/23/20 18:08 Amiodarone HCl 150 mg/IV Miscellaneous Supplies 100 ml @ 600 mls/hr STAT STAT IV 02/24/20 09:08 02/24/20 09:17 DC 02/24/20 09:25 Amiodarone HCl 150 mg/IV Miscellaneous Supplies 100 ml @ 600 mls/hr STAT STAT IV 02/24/20 18:19 02/24/20 18:28 DC 02/24/20 18:28 Amiodarone HCl 150 mg/IV Miscellaneous Supplies 100 ml @ 600 mls/hr STAT STAT IV 02/25/20 11:13 02/25/20 11:22 DC 02/25/20 11:27 Amiodarone HCl 150 mg/IV Miscellaneous Supplies 100 ml @ 600 mls/hr STAT STAT IV 02/25/20 13:15 02/25/20 13:24 DC 02/25/20 13:20 Apixaban (Eliquis) 5 mg Q12H PO 02/23/20 21:00 03/01/20 08:03 Atorvastatin Calcium (Lipitor) 20 mg QHS PO 03/01/20 21:00 Budesonide/ Formoterol Fumarate (Symbicort 160/ 4.5mcg) 2 puff BID INH 02/23/20 22:30 03/01/20 08:36 Budesonide/ Formoterol Fumarate (Symbicort 160/ 4.5mcg) 2 puff BID INH 02/24/20 09:00 02/23/20 22:25 DC Digoxin (Lanoxin) 0.125 mg DAILY PO 02/28/20 09:00 03/01/20 08:05 Digoxin (Lanoxin) 0.25 mg Q6H IV 02/23/20 18:00 02/24/20 12:01 DC 02/24/20 11:14 Diltiazem HCl (Cardizem Cd) 360 mg DAILY PO 03/01/20 09:00 03/01/20 08:04 Diltiazem HCl (Cardizem) 20 mg STAT STAT IV 02/23/20 13:42 02/23/20 13:46 DC 02/23/20 14:09 Diltiazem HCl (Cardizem) 30 mg Q6H PO 02/24/20 12:00 02/26/20 11:44 DC 02/26/20 06:06 Diltiazem HCl (Cardizem) 30 mg STAT STAT IV 02/23/20 14:50 02/23/20 14:53 DC 02/23/20 15:32 Diltiazem HCl (Cardizem) 60 mg Q6H PO 02/26/20 12:00 02/27/20 20:50 DC 02/27/20 18:36 Diltiazem HCl (Cardizem) 90 mg Q6H PO 02/28/20 00:00 03/01/20 07:30 DC 03/01/20 05:29 Diltiazem HCl 125 mg/Sodium Chloride 125 ml @ 10 mls/hr [id number] IV 02/25/20 18:03 UNV Diltiazem HCl 125 mg/Sodium Chloride 125 ml @ 1 mls/hr Q24H IV 02/23/20 15:00 02/23/20 15:48 DC Diltiazem HCl 125 mg/Sodium Chloride 125 ml @ 5 mls/hr Q24H IV 02/23/20 17:30 02/23/20 20:37 DC 02/23/20 17:45 Diltiazem HCl 125 mg/Sodium Chloride 125 ml @ 5 mls/hr Q24H IV 02/23/20 20:40 02/23/20 22:16 DC 02/23/20 21:09 Diltiazem HCl 125 mg/Sodium Chloride 125 ml @ 5 mls/hr Q24H IV 02/23/20 22:14 02/27/20 16:44 DC 02/26/20 03:30 Docusate Sodium (Colace) 100 mg BID PO 02/29/20 09:00 Cancel Doxycycline Hyclate (Vibramycin) 100 mg BID PO 02/23/20 21:00 02/28/20 13:56 DC 02/28/20 09:28 Fluticasone Propionate (Flonase 0.05% Nasal [place]) 1 spray BID NA 02/24/20 09:00 03/01/20 08:05 Furosemide (LASIX injection) 40 mg Q8H IV 02/23/20 16:00 02/24/20 15:13 DC 02/24/20 08:04 Furosemide (LASIX injection) 60 mg DAILY IV 02/25/20 09:00 02/29/20 10:02 DC 02/28/20 09:27 Furosemide (Lasix) 20 mg DAILY PO 02/29/20 09:00 03/01/20 08:04 Guaifenesin (Robitussin Tab) 400 mg TID PRN PO COUGH 02/23/20 22:30 Home Med (Med Rec Complete!) ASDIRECTED XX 02/23/20 18:00 02/23/20 18:00 DC Levothyroxine Sodium (Synthroid) 125 mcg DAILY@0600 PO 02/24/20 06:00 03/01/20 05:29 Lisinopril (Prinivil) 5 mg DAILY PO 02/24/20 09:00 02/24/20 15:13 DC 02/24/20 09:41 Magnesium Hydroxide (Milk Of Magnesia) 30 ml DAILY PRN PO CONSTIPATION 02/23/20 18:00 Magnesium Oxide (Mag-Ox) 800 mg DAILY PO 02/25/20 09:00 03/01/20 08:03 Miscellaneous (Unresolved Clarification Entry) SEE LABEL COMMENTS DAILY XX 02/27/20 09:00 02/28/20 14:03 DC Miscellaneous (Unresolved Clarification Entry) SEE LABEL COMMENTS DAILY XX 03/01/20 09:00 03/01/20 12:17 DC Multivitamins (Ocuvite(I-Maddie)) 1 tab BID PO 02/25/20 21:00 Cancel Multivitamins (Ocuvite(I-Maddie)) 1 tab Q12H PO 02/25/20 18:00 03/01/20 05:29 Pantoprazole Sodium (Protonix) 20 mg DAILY PO 02/27/20 09:00 03/01/20 08:05 Polyethylene Glycol (Miralax) 1 pkt DAILYPRN PRN PO CONSTIPATION 02/29/20 10:00 Potassium Chloride (Micro-K Extencaps) 30 meq DAILY PO 02/25/20 09:00 03/01/20 08:04 Senna (Senokot) 1 tab BID PO 02/25/20 21:00 03/01/20 08:04 Simvastatin (Zocor) 40 mg QHS PO 02/24/20 21:00 03/01/20 07:30 DC 02/29/20 20:59 Sodium Chloride ([place] Flush) 2 ml ASDIRECTED PRN IV SEE LABEL COMMENTS 03/01/20 10:45 Sodium Chloride ([place] Flush) 2 ml SLF IV 03/01/20 14:00 03/01/20 12:15 Tamsulosin HCl (Flomax) 0.4 mg DAILY PO 02/24/20 09:00 03/01/20 08:04 Tiotropium [place] (Spiriva Handihaler) 1 inhalation DAILY INH 02/24/20 09:00 Cancel Tiotropium [place] (Spiriva Handihaler) 1 inhalation DAILY@0800 INH 02/23/20 22:30 03/01/20 08:36 Vitamin D (Vitamin D) 2,000 units DAILY PO 02/24/20 09:00 03/01/20 08:04 Allergies Coded Allergies: No Known Allergies (Unverified , 02/23/20) Jenny Ayala MD Mar 01, 2020 13:24
[2020-03-01] MEDS ORDERED: ATORVASTATIN 20 MG TAB PO SCH (21:00)
[2020-03-02 04:00] VITALS: BP 125/71
[2020-03-02 04:52] LABS: HEMATOCRIT 39.5 % (42.0-52.0); HEMOGLOBIN 12.5 g/dl (13.5-17.5); MEAN CORPUSCULAR HEMOGLOBIN 28.7 pg (27.0-33.0); MEAN CORPUSCULAR HGB CONC 31.6 g/dl (32.0-36.5); MEAN CORPUSCULAR VOLUME 90.6 fl (80.0-96.0); PLATELET COUNT, AUTOMATED 191 10^3/uL (150-450); RED BLOOD COUNT 4.36 10^6/uL (4.30-6.10); WHITE BLOOD COUNT 9.6 10^3/uL (4.0-10.0)
[2020-03-02 05:29] LABS: ALBUMIN 3.2 GM/DL (3.2-5.2); ALT/SGPT 50 U/L (12-78); BILIRUBIN,TOTAL 0.6 MG/DL (0.2-1.0); BLOOD UREA NITROGEN 30 MG/DL (7-18); CALCIUM LEVEL 8.6 MG/DL (8.8-10.2); CARBON DIOXIDE LEVEL 34 MEQ/L (21-32); CHLORIDE LEVEL 105 MEQ/L (98-107); CREATININE FOR GFR 0.79 MG/DL (0.70-1.30); GLOMERULAR FILTRATION RATE > 60.0 (>42); GLUCOSE, FASTING 96 MG/DL (70-100); POTASSIUM SERUM 4.1 MEQ/L (3.5-5.1); SODIUM LEVEL 142 MEQ/L (136-145); TOTAL PROTEIN 5.9 GM/DL (6.4-8.2)
[2020-03-02] MEDS: OCUVITE 1 TAB PO SCH (05:56)
[2020-03-02] MEDS: LEVOTHYROXINE 125MCG TABLET (0.125MG) PO SCH (05:56)
[2020-03-02] MEDS: SLF 3 ML SYR IV SCH ×2 (06:30→11:31)
[2020-03-02] MEDS: SYMBICORT 160/4.5MCG INHALER 6GM INH SCH (07:50)
[2020-03-02] MEDS: TIOTROPIUM INHALER/CAPSULE (SPIRIVA) INH SCH (07:50)
[2020-03-02 08:00] VITALS: BP 117/60
[2020-03-02] MEDS: POTASSIUM CHLORIDE 10 MEQ SR TABLET PO SCH (08:29)
[2020-03-02] MEDS: PANTOPRAZOLE 20 MG TAB PO SCH (08:29)
[2020-03-02] MEDS: APIXABAN 5 MG TAB (ELIQUIS) PO SCH (08:30)
[2020-03-02] MEDS: VITAMIN D 1,000 INTERNATIONAL UNITS TABLET PO SCH (08:30)
[2020-03-02] MEDS: MAGNESIUM OXIDE 400 MG TAB (MAG-OX) PO SCH (08:30)
[2020-03-02 08:32] VITALS: BP 117/60
[2020-03-02] MEDS: FUROSEMIDE 20 MG TAB PO SCH (08:32)
[2020-03-02] MEDS: diltiaZEM **CD** 180 MG CAP PO SCH (08:32)
[2020-03-02] MEDS: FLUTICASONE PROP 0.05% NASAL SPRAY 16 GM (FLONASE) SCH (08:33)
[2020-03-02] MEDS: DIGOXIN 0.125 MG TAB PO SCH (08:33)
[2020-03-02] MEDS: TAMSULOSIN 0.4 MG CAP PO SCH (08:33)
[2020-03-02] MEDS: SENNA 8.6 MG TAB (SENOKOT) PO SCH (08:33)
[2020-03-02 12:00] VITALS: BP 120/56
[2020-03-02] MEDS ORDERED: ELIQ5TAB PO (12:28)
[2020-03-02] MEDS ORDERED: FURO20TA2 PO (12:28)
[2020-03-02] MEDS ORDERED: ATOR1TAB21 PO (12:28)
[2020-03-02] MEDS ORDERED: CARD180C4 PO (12:28)
[2020-03-02] MEDS ORDERED: DIGO0.123 PO (12:28)
--- NOTE | 2020-03-02 14:30 | IPNPDOC ---
Text Note Date of Service The patient was seen on 03/02/20. NOTE SUBJECTIVE: -No chest pain, or dyspnea OBJECTIVE: VITAL SIGNS: Normotensive, HR 70s, on 2L NC, for details see below GENERAL APPEARANCE: NAD HEENT: PERRLA, EOMI CARDIOVASCULAR: Irregular, no murmur appreciated LUNGS: Mild bibasilar crackles, no wheezing, good air entry. ABDOMEN: soft, NTND EXTREMITIES: No edema, no cyanosis NEUROLOGICAL: AOx3, CN2-12 intact, no focal neurological deficits PSYCHIATRIC: pleasant, cooperative. LABORATORY DATA: Reviewed WBC 9.6 hgb 12.5 na 142 K 4.1 Cr 0.79 ASSESSMENT: 74 yo M with a hx of chronic respiratory failure 2/2 to COPD (3 L NC O2 dependant ATC) admitted for treatment/management of atrial flutter with RVR. PLAN: 1. New Onset Aflutter w/ RVR in the setting of CHF exacerbation -Now rate controlled with episodic RVR with exertion -s/p TTE, pending report -Cardiology consulted and placed on dilt 360mg QD, digoxin 0.1mg QD, on telemetry -continue eliquis 2. Weakness likely 2/2 to physical deconditioning due to acute illness. -PT/OT reported that he is not yet safe for discharge at this time. -C/w PT/OT. -F/u recommendations. 3. Acute on chronic respiratory failure 2/2 to CHF exacerbation likely 2/2 to new onset atrial flutter/atrial fibrillation w/ RVR -Resolved, currently saturating well on 2-3 L NC, per home baseline dosing -C/w lasix 20 mg PO daily, cardizem PO as above. -Holding for lisinopril 5 mg daily for now. -TTE completed, pending report 4. CHF exacerbation: Appears to have a history of, however with unclear subtype, with pending TTE -TTE pending -Now well compensated back to baseline dosing lasix 20mg QD PO. 4. COPD, not currently in exacerbation. -On home amount of oxygen, saturating well. Albuterol PRN, incentive spirometer. 5. Constipation. -C/w current regimen. 6. DVT ppx. -Eliquis 5 mg bid DISPOSITION: Pending PT/OT clearance. Plan is home when medically improved. May make ALC depending on PT recs for estimated time to clearance. VS,Fishbone, I+O VS, Fishbone, I+O Laboratory Tests 03/02/20 04:35 Vital Signs Date Time Temp Pulse Resp B/P (MAP) Pulse Ox O2 Delivery O2 Flow Rate FiO2 03/02/20 04:00 97.9 77 16 125/71 (89) 97 Nasal Cannula 2.0 I&O- Last 24 Hours up to 6 AM 03/02/20 06:00 Intake Total 725 ml Output Total 1270 ml Balance -545 ml GERARDO RUTH MD Mar 02, 2020 08:16
--- NOTE | 2020-03-02 14:53 | DS.PDOC ---
Discharge Summary General Date of Admission Feb 23, 2020 at 17:51 Date of Discharge 03/02/2020 Attending Physician: GERARDO RUTH MD Discharge Summary PROCEDURES PERFORMED DURING STAY: None ADMITTING DIAGNOSES: 1. Decompensated heart failure DISCHARGE DIAGNOSES: 1. CHF exacerbation, unclear subtype with pending TTE results 2. Newly noted Aflutter with RVR 3. COPD without exacerbation COMPLICATIONS/CHIEF COMPLAINT: SOB HISTORY OF PRESENT ILLNESS: 74 yo M with a hx of COPD, who presented to the ED with a 2 week history of worsening shortness of breath on exertion, as well as 10 lb weight gain in 2 weeks. He received most of care at the [facility], and was recently treated for COPD exacerbation 2 weeks prior to this admission. HOSPITAL COURSE: In the ED, he was noted to have atrial flutter with RVR (HRs 150s) and was given IV and PO cardizem and remained in RVR. He was admitted to the ICU on a dilt drip, had a few doses of amio and eventually achieved rate controlled and maintained on dilt 360mg QD, digoxin 0.125mg QD and was started on eliquis. In the meantime cardiology had been consulted and he had a TTE that unfortunately, the read is not yet available and was noted to be in volume overload for which he was given IV diuresis with lasix 40 IV doses with good effect and eventually started on a maintenance dose of 20mg PO daily. He is now being discharged home on these new medications of digoxin 0.125mg QD, diltiazem 360mg QD, lasix 20mg QD, eliquis 5mg BID and his statin was switched from pravastatin 40mg QD to atorvastatin 20mg QD. In the meantime, he had no signs of COPD exacerbation or PNA and his baseline hypoxemia was stable and remained on 2-3L NC at rest. DISCHARGE MEDICATIONS: Please see below. ALLERGIES: Please see below. PHYSICAL EXAMINATION ON DISCHARGE: VITAL SIGNS: Please see below. GENERAL APPEARANCE: NAD, in bed resting HEENT: PERRLA, EOMI CARDIOVASCULAR: Irregular. No murmur appreciated. LUNGS: CTAB. No wheeze, no rales appreciated. ABDOMEN: soft, non tender. EXTREMITIES: No edema, no cyanosis. NEUROLOGICAL: no focal neurological deficits. PSYCHIATRIC: AAO x 3, calm, pleasant, cooperative. LABORATORY DATA: Please see below. IMAGING: CXR: No acute cardiopulmonary abnormality. TTE: pending read PROGNOSIS: Good ACTIVITY: As tolerated DIET: 2g sodium diet DISCHARGE PLAN: Home with PCP and cardiology follow up (referral by [facility], [facility]) DISPOSITION: Home with PCP and cardiology follow up (referral by PCP, if to follow up within the [place] system) DISCHARGE INSTRUCTIONS: 1. Limit salt intake to 2g per 24hours. ITEMS TO FOLLOWUP ON ON OUTPATIENT: 1. CHF 2. A flutter DISCHARGE CONDITION: Stable TIME SPENT ON DISCHARGE: 43 minutes. Vital Signs/I&Os Vital Signs Date Time Temp Pulse Resp B/P (MAP) Pulse Ox O2 Delivery O2 Flow Rate FiO2 03/02/20 12:00 98.8 77 18 120/56 (77) 96 Nasal Cannula 2.0 I&O- Last 24 Hours up to 6 AM 03/02/20 06:00 Intake Total 725 ml Output Total 1270 ml Balance -545 ml Laboratory Data Labs 24H Laboratory Tests 2 03/02/20 04:35: Nucleated Red Blood Cells % (auto) 0.0, Anion Gap 3L, Glomerular Filtration Rate > 60.0, Calcium Level 8.6L, Total Bilirubin 0.6, Aspartate Amino Transf (AST/SGOT) 21, Alanine Aminotransferase (ALT/SGPT) 50, Alkaline Phosphatase 68, Total Protein 5.9L, Albumin 3.2, Albumin/Globulin Ratio 1.2, Digoxin Level 1.0 CBC/BMP Laboratory Tests 03/02/20 04:35 Microbiology Microbiology 02/23/20 Blood Culture - Final, Complete NO GROWTH AFTER 5 DAYS 02/23/20 Blood Culture - Final, Complete NO GROWTH AFTER 5 DAYS Discharge Medications Scheduled Acetylcysteine (Acetylcysteine) 200 Mg/1 Ml Vial, 600 MG INH BID, (Reported) Apixaban (Eliquis) 5 Mg Tablet, 5 MG PO Q12H Atorvastatin Calcium (Atorvastatin Calcium) 20 Mg Tablet, 20 MG PO QHS Budesonide/Formoterol (Symbicort 160-4.5 Mcg Inhaler) 6 Gm Hfa.aer.ad, 2 PUFF INH BID, (Reported) Cholecalciferol (Vitamin D3) (Vitamin D3) 1,000 Unit Tablet, 2,000 UNITS PO DAILY, (Reported) Digoxin (Digoxin) 125 Mcg Tablet, 0.125 MG PO DAILY Diltiazem Hcl (Cardizem Cd) 180 Mg Cap.er.24h, 360 MG PO DAILY Fluticasone Propionate (Fluticasone Propionate) 16 Gm [place].susp, 1 SPRAY NA BID, (Reported) Furosemide (Furosemide) 20 Mg Tablet, 20 MG PO DAILY Levothyroxine Sodium (Synthroid) 125 Mcg Tablet, 125 MCG PO QAM, (Reported) patient states has not started yet Tamsulosin HCl (Flomax) 0.4 Mg Capsule, 0.4 MG PO DAILY, (Reported) patient states has not started yet Tiotropium Levasy Monohydrate (Spiriva) 18 Mcg Cap.w.dev, 1 PUFF INH DAILY, (Reported) Vit C/E/Zn/Coppr/Lutein/Zeaxan (Preservision Areds 2 Softgel) 1 Each Capsule, 1 EACH PO BID, (Reported) Scheduled PRN Albuterol Sulfate (Proair Hfa) 8.5 Gm Hfa.aer.ad, 2 PUFF INH Q4-6HP PRN for wheezing, (Reported) Guaifenesin (Guaifenesin) 400 Mg Tablet, 400 MG PO TID PRN for COUGH, (Reported) Allergies Coded Allergies: No Known Allergies (Unverified , 02/23/20) GERARDO RUTH MD Mar 02, 2020 14:52
--- NOTE | 2020-03-03 08:21 | IPN ---
DATE: 03/02/2020 Mr. Chamorro is feeling better. He is admits that he is less short of breath. He has less sensation of palpitations. Denies any chest discomfort. Telemetry monitoring reveals that he went back to sinus rhythm yesterday evening and has stayed in sinus rhythm since. Vital signs: Blood pressure is 117/60, heart rate has been in 70s and 80s, there were no pauses on telemetry, saturation 97% on 2 liters of oxygen. His fluid balance has been approximately equal. Weight is recorded at 79 kg. He is alert, oriented, and appropriate. He is able to speak in full sentences without any obvious difficulty. His jugular venous pressure (JVP) is not high. Lungs exam reveals good air movement, no wheezing, crackles, or rhonchi. Heart exam reveals irregularly irregular rhythm. I do not appreciate any gallop or rub. Abdomen is soft, nontender. Extremities are free of edema. LABORATORIES: CBC is normal. Basic metabolic panel is normal. Liver function tests are normal. Digoxin level is 1.0. ASSESSMENT AND PLAN: Mr. Chamorro is a 74-year-old man who has a longstanding history of chronic obstructive pulmonary disease (COPD) who presented with atrial flutter with rapid ventricular response (RVR) simultaneously with congestive heart failure. He was put on high dose Cardizem and digoxin which led to initially good rate control and eventually a catholic of sinus mechanism. His heart failure has been well controlled. At this point, from my perspective he can be discharged home. It is important that he will be seen in followup within 1 week in order to make sure that the heart rate remains under good control as the potency of the medications will increase over time. It is also important that he stays anticoagulated. He informed me that he would like to be seen in our office but he wants to verify that [facility] will provide coverage, so at this point no firm followup will be scheduled. GATO
--- NOTE | 2020-03-16 07:40 | ECGEPIP ---
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
--- NOTE | 2020-03-19 14:41 | ECGEPIP ---
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
--- NOTE | 2020-03-23 10:46 | ECGEPIP ---
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
--- NOTE | 2020-03-25 12:31 | ECGEPIP ---
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
--- NOTE | 2020-04-10 07:59 | IPN ---
DATE: 02/26/2020 Mr. Cisco Heck was seen earlier in the morning and this evening. This morning, he was in atrial flutter with a controlled ventricular rate and he denied, when I saw him, any chest pain, shortness of breath, palpitations, dizziness, syncope, or near syncope. There is no report of bleeding. He was in bed and having breakfast. There was no focal manifestation. This evening, when I stopped back to see him, he was in normal sinus rhythm. On physical examination, the patient is alert and oriented, he is in no acute distress at rest. His vital signs this morning when I saw him reveal a blood pressure of 102/56 with a pulse of 84, respirations 20, and his maximum temperature was 97.1 degrees Fahrenheit with an oxygen saturation of 96% on two liters nasal cannula. He has a negative fluid balance of 1.5. Examination of head: Atraumatic. Neck is supple and no jugular venous distention (JVD) appreciated. The lungs did not reveal any wheezing or crackles. The heart examination revealed irregular heart sounds without gallops. The point of maximum impulse (PMI) is not displaced. There is no rub. I could not appreciate any murmurs. Abdomen is soft and nontender. Extremities reveal no pedal edema. Neurological examination is negative for focal deficits. LABORATORY DATA: CBC on 02/26/2020 revealed a WBC of 8.5, hemoglobin 13.1, hematocrit 41.5, and platelets 203,000. BMP revealed a sodium of 142, potassium 3.8, chloride 99, CO2 37, BUN 22, creatinine 0.78, GFR more than 60, fasting glucose 88, and calcium 9.3. Liver enzymes revealed a total bilirubin of 1.2, AST 28, ALT 83, alkaline phosphatase 167, total protein 5.3. Serum magnesium is 1.9. Serum TSH was 1.86. IMPRESSION: 1. Atrial fibrillation, newly diagnosed this hospital admission and currently in normal sinus rhythm this evening. We will continue the current management. He is no longer on IV Cardizem and his by mouth Cardizem was increased up to 60 mg by mouth every 6 hours. We will monitor his blood pressure while in the hospital and then further recommendations will be given. He is no longer receiving the digoxin. Also, he has not received any IV amiodarone today. He is in Eliquis for prevention of thromboembolic events and we will continue the same. 2. Hypertension. Under control and we will monitor his blood pressure closely. 3. Hyperlipidemia, on statin. I would like to change the simvastatin to generic Lipitor or generic Crestor. 4. Electrolyte abnormalities with hypokalemia and hypomagnesemia, now corrected. 5. Chronic obstructive pulmonary disease (COPD), no wheezing noted on his admission. Prolonged history and he has been on home oxygen therapy continuously. It was pleasure to participate in the care of Mr. Maria R Peck for his underlying cardiac condition. I will continue to monitor him along with you. Please do not hesitate to call if any questions. RADHAD
--- NOTE | 2020-04-10 08:01 | IPN ---
DATE: 02/25/2020 Mr. Maria R Peck was seen earlier today in the morning. He was supine in bed in no acute distress at rest. He stated he had a great night. He denies any chest pain, shortness of breath, palpitations, orthopnea, or paroxysmal nocturnal dyspnea (PND). He states that he thinks he is having palpitations for a long time on and off but more lately. He denies any bleeding. He was seen initially on 02/23/2020 for atrial fibrillation with a rapid ventricular rate. This morning, by telemetry, when I was at bedside he was in atrial flutter with a ventricular rate of about 80 beats per minute. PHYSICAL EXAMINATION: Patient is alert and oriented in no acute distress at rest and very pleasant. His vital signs when I saw him earlier today revealed a blood pressure of 103/57 with a pulse of 81, respirations 18, and his maximum temperature was 97.6 degrees Fahrenheit with an oxygen saturation of 97% on 3 liters nasal cannula. Examination of the head: Atraumatic. Neck is supple and no jugular venous distention (JVD) appreciated. The lungs did not reveal any wheezing or crackles. The heart examination revealed an irregular heart sound without gallops. The point of maximal impulse (PMI) is not displaced. There is no rub. I could to appreciate any murmurs. Abdomen is soft and nontender. Extremities reveal no pedal edema. Neurological examination is negative for focal deficit. LABORATORY DATA: CBC on 02/25/2020 revealed a WBC of 9.0, hemoglobin 11.8, hematocrit 36.2, and platelets 192,000. BMP done today revealed a sodium of 141, potassium 3.3, chloride 97, CO2 of 28, BUN 22, creatinine 0.82, GFR more than 60, fasting glucose 92, calcium 9.0. Serum magnesium is 1.7. Liver enzymes revealed a total bilirubin of 1.1, AST 38, ALT 118, alkaline phosphatase 56, total protein 5.9, albumin 3.2. Serum TSH is 2.6 this morning. IMPRESSION: 1. Atrial fibrillation with a rapid ventricular rate, newly diagnosed. Currently in atrial flutter with a controlled ventricular rate. Case was discussed with the patient, and he is well aware about his diagnosis, and he will need more medications to go home. We will continue with the anticoagulation therapy, on apixaban for prevention of thromboembolic events. He is currently on oral and intravenous (IV) Cardizem, and will try today to taper off the IV Cardizem. He was noted initially with digoxin but not received any other dose. He will be monitored for now. Occasionally, I will give him IV amiodarone, but I do not plan to discharge plan on amiodarone. He had an echocardiogram done, and it will be reviewed. 2. Hypertension, under control. He will continue current medications. His angiotensin-converting enzyme (JET) inhibitor has been hold, because his blood pressure was running low while on the IV Cardizem. 3. Electrolyte abnormalities, being addressed. 4. History of chronic obstructive pulmonary disease (COPD), on home oxygen therapy. It was a pleasure to participate in the care of Mr. Maria R Peck for his underlying cardiac condition. I will continue to monitor him along with you. He appears stable, and, as mentioned above, we will try to taper off the IV Cardizem. GATO
== END 2020-03-02 15:31 | disposition home or self-care (01) | DRG 308 ==
LOC: M ED 12:01 → M ED INP 17:51 → ENRESERV 20:33 → M ICU 21:34 → M PCU 02-27 11:15
PROVIDERS: ADMIT Family Medicine; ATTEND Internal Medicine
DX: I48.92 Unspecified atrial flutter (principal); J96.20 Acute and chronic respiratory failure, unspecified whether with hypoxia or hypercapnia; I50.9 Heart failure, unspecified; J44.9 Chronic obstructive pulmonary disease, unspecified; R53.1 Weakness; K59.00 Constipation, unspecified; Z87.891 Personal history of nicotine dependence; Z79.52 Long term (current) use of systemic steroids; Z79.899 Other long term (current) drug therapy; Z99.81 Dependence on supplemental oxygen

== ENCOUNTER → 2021-09-08 | Outpatient (CLI) | payer OTHER ==
[~2021-09-08] MED LIST: ACET20%4ML INH; ATOR1TAB21 PO; CARD180C4 PO; D3 +TAB PO; DIGO0.123 PO; DOXY100T PO; ELIQ5TAB PO; FLOM0.4C39 PO; FLUTISP; FURO20TA2 PO; GUAI400T9 PO; ISOVUE-370 76% 100ML VIAL As Ordered ONE; PRED20TA PO; PRES10CA2 PO; PROAAER10 INH; SIMV40TA20 PO; SYMB16INH INH; SYNT125T PO; TIOT18INH INH; VITA100093 PO
== END ==
LOC: M RAD 10:06
PROVIDERS: ATTEND Nurse Practitioner Primary Care
DX: I10 Essential (primary) hypertension (principal); R31.9 Hematuria, unspecified; J44.9 Chronic obstructive pulmonary disease, unspecified
CPT/HCPCS: 71250; 74178; Q9967

== ENCOUNTER 2021-10-02 10:55 | Inpatient (IN) | payer BC, MEDICARE, OTHER ==
[~2021-10-02] VITALS: Ht 177.8 cm; Wt 78.5 kg
[~2021-10-02 10:55] MED LIST changes: -FLUTISP; +FLUTISP NARES; -ISOVUE-370 76% 100ML VIAL As Ordered ONE
[2021-10-02] MEDS ORDERED: BACTDSTA PO (11:22)
[2021-10-02] MEDS ORDERED: NS 500 ML IV ONE (12:10)
[2021-10-02] MEDS: LIDOCAINE 2% 5ML JELLY UROJET TOP ONE (12:20)
[2021-10-02 12:24] LABS: BASO % 0.5 % (0.0-1.0); EOS % 0.3 % (0.0-3.0); HEMATOCRIT 35.9 % (42.0-52.0); HEMOGLOBIN 11.7 g/dl (13.5-17.5); LYMPH # 1.2 10^3/uL (1.5-5.0); LYMPH % 15.2 % (24.0-44.0); MEAN CORPUSCULAR HGB CONC 32.6 g/dl (32.0-36.5); MEAN CORPUSCULAR VOLUME 89.1 fl (80.0-96.0); MONO # 1.1 10^3/uL (0.0-0.8); MONO % 13.4 % (2.0-8.0); NEUTROPHILS # 5.4 10^3/uL (1.5-8.5); NEUTROPHILS % 68.3 % (36.0-66.0); PLATELET COUNT, AUTOMATED 264 10^3/uL (150-450); RED BLOOD COUNT 4.03 10^6/uL (4.30-6.10); WHITE BLOOD COUNT 7.8 10^3/uL (4.0-10.0)
[2021-10-02 12:34] LABS: INR 1.67; PROTHROMBIN TIME 20.1 SECONDS (12.7-14.5)
[2021-10-02 12:34] LABS: BILIRUBIN, URINE MANUAL NEGATIVE (NEGATIVE); GLUCOSE, URINE (UA) MANUAL NEGATIVE (NEGATIVE); KETONE, URINE MANUAL 1+ mg/dL (NEGATIVE); UROBILINOGEN, URINE MANUAL NORMAL (NORMAL)
[2021-10-02 12:35] LABS: BACTERIA, URINE SMALL AMOUNT; RBC, URINE TNTC /hpf (0-3)
[2021-10-02] MEDS ORDERED: ACETAMINOPHEN 500 MG TAB PO ONE (13:05)
[2021-10-02 13:06] LABS: CALCIUM LEVEL 9.3 MG/DL (8.8-10.2); CREATININE FOR GFR 1.63 MG/DL (0.70-1.30); DIGOXIN LEVEL 1.3 NG/ML (0.5-2.0); GLOMERULAR FILTRATION RATE 44.2 (>42); POTASSIUM SERUM 4.4 MEQ/L (3.5-5.1)
[2021-10-02] MEDS ORDERED: FINA5TAB2 PO (13:50)
[2021-10-02] MEDS ORDERED: SIMV20TA22 PO (13:50)
[2021-10-02] MEDS ORDERED: oxyBUTYnin 5 MG TAB PO ONE (14:10)
[2021-10-02 14:46] LABS: RSV AMPLIFICATION NEGATIVE (NEGATIVE)
[2021-10-02] MEDS ORDERED: NS 1,000 ML IV SCH (15:00)
[2021-10-02] MEDS ORDERED: DILT1CAP4 PO (15:27)
[2021-10-02] MEDS ORDERED: FURO20TA2 PO (15:27)
[2021-10-02] MEDS ORDERED: SYNT75TA PO (15:27)
[2021-10-02] MEDS ORDERED: DIGO0.123 PO (15:27)
[2021-10-02] MEDS ORDERED: ELIQ5TAB PO (15:27)
[2021-10-02] MEDS ORDERED: HOME MED LIST COMPLETE! XX SCH (15:30)
[2021-10-02 16:17] LABS: HEMATOCRIT 32.6 % (42.0-52.0); HEMOGLOBIN 10.8 g/dl (13.5-17.5); MEAN CORPUSCULAR HEMOGLOBIN 29.2 pg (27.0-33.0); MEAN CORPUSCULAR HGB CONC 33.1 g/dl (32.0-36.5); MEAN CORPUSCULAR VOLUME 88.1 fl (80.0-96.0); PLATELET COUNT, AUTOMATED 257 10^3/uL (150-450); WHITE BLOOD COUNT 8.4 10^3/uL (4.0-10.0)
[2021-10-02 17:00] VITALS: BP 106/84
[2021-10-02] MEDS ORDERED: FLUTICASONE PROP 0.05% NASAL SPRAY 16 GM (FLONASE) NARES PRN (17:30)
[2021-10-02] MEDS ORDERED: guaiFENesin 200 MG TAB PO PRN (17:30)
[2021-10-02] MEDS ORDERED: ALBUTEROL 90 MCG/ACT 8GM HFA INHALER INH PRN (17:30)
[2021-10-02] MEDS: ACETAMINOPHEN TAB 650MG DOSE (2X325MG) PO PRN (17:38)
[2021-10-02] MEDS: SYMBICORT 160/4.5MCG INHALER 6GM INH SCH (19:32)
[2021-10-02 20:07] LABS: HEMATOCRIT 30.2 % (42.0-52.0); HEMOGLOBIN 10.1 g/dl (13.5-17.5); MEAN CORPUSCULAR HEMOGLOBIN 29.7 pg (27.0-33.0); MEAN CORPUSCULAR HGB CONC 33.4 g/dl (32.0-36.5); MEAN CORPUSCULAR VOLUME 88.8 fl (80.0-96.0); PLATELET COUNT, AUTOMATED 252 10^3/uL (150-450); WHITE BLOOD COUNT 15.1 10^3/uL (4.0-10.0)
[2021-10-02] MEDS: TAMSULOSIN 0.4 MG CAP PO SCH (20:57)
[2021-10-02] MEDS: oxyBUTYnin 5 MG TAB PO SCH (20:57)
[2021-10-02] MEDS: CEFDINIR 300 MG CAP (OMNICEF) PO SCH (20:57)
[2021-10-02] MEDS: DOCUSATE SODIUM 100MG CAPSULE PO SCH (20:57)
[2021-10-02] MEDS ORDERED: SIMVASTATIN 20 MG TAB PO SCH (21:00)
[2021-10-02] MEDS ORDERED: BACTRIM 160MG/800MG DS TAB PO SCH (21:00)
[2021-10-02 22:00] VITALS: BP 123/62
[2021-10-02] MEDS: BELLADONNA 16.2mg/OPIUM 60mg 1 EA SUPP PR ONE ×2 (23:07→23:23)
[2021-10-03] VITALS (52 sets, daily range): BP systolic 75–122; BP diastolic 44–67; O2SAT 97
[2021-10-03] MEDS: ACETAMINOPHEN TAB 650MG DOSE (2X325MG) PO PRN ×2 (00:20→14:58)
[2021-10-03 02:38] LABS: HEMATOCRIT 26.6 % (42.0-52.0); HEMOGLOBIN 8.9 g/dl (13.5-17.5); MEAN CORPUSCULAR HEMOGLOBIN 29.6 pg (27.0-33.0); MEAN CORPUSCULAR HGB CONC 33.5 g/dl (32.0-36.5); MEAN CORPUSCULAR VOLUME 88.4 fl (80.0-96.0); PLATELET COUNT, AUTOMATED 209 10^3/uL (150-450); RED BLOOD COUNT 3.01 10^6/uL (4.30-6.10); WHITE BLOOD COUNT 11.6 10^3/uL (4.0-10.0)
[2021-10-03 05:01] LABS: HEMATOCRIT 26.3 % (42.0-52.0); HEMOGLOBIN 8.9 g/dl (13.5-17.5); MEAN CORPUSCULAR HEMOGLOBIN 29.8 pg (27.0-33.0); MEAN CORPUSCULAR HGB CONC 33.8 g/dl (32.0-36.5); PLATELET COUNT, AUTOMATED 198 10^3/uL (150-450); RED BLOOD COUNT 2.99 10^6/uL (4.30-6.10)
[2021-10-03] MEDS: LEVOTHYROXINE 75MCG TABLET (0.075MG) PO SCH (05:28)
[2021-10-03 05:48] LABS: ALBUMIN 2.6 GM/DL (3.2-5.2); ALT/SGPT 35 U/L (12-78); BILIRUBIN,TOTAL 0.4 MG/DL (0.2-1.0); BLOOD UREA NITROGEN 37 MG/DL (7-18); CALCIUM LEVEL 8.2 MG/DL (8.8-10.2); CARBON DIOXIDE LEVEL 28 MEQ/L (21-32); CHLORIDE LEVEL 108 MEQ/L (98-107); CREATININE FOR GFR 0.98 MG/DL (0.70-1.30); GLOMERULAR FILTRATION RATE > 60.0 (>42); GLUCOSE, FASTING 99 MG/DL (70-100); POTASSIUM SERUM 4.4 MEQ/L (3.5-5.1); SODIUM LEVEL 140 MEQ/L (136-145); TOTAL PROTEIN 5.1 GM/DL (6.4-8.2)
[2021-10-03] MEDS ORDERED: NS 1,000 ML IV ONE ×2 (05:50→10:50)
[2021-10-03] MEDS: TIOTROPIUM INHALER/CAPSULE (SPIRIVA) INH SCH (07:15)
[2021-10-03] MEDS: SYMBICORT 160/4.5MCG INHALER 6GM INH SCH ×2 (07:15→19:24)
[2021-10-03] MEDS: DOCUSATE SODIUM 100MG CAPSULE PO SCH ×2 (07:57→20:05)
[2021-10-03] MEDS: VITAMIN D 1,000 INTERNATIONAL UNITS TABLET PO SCH (07:57)
[2021-10-03] MEDS: CEFDINIR 300 MG CAP (OMNICEF) PO SCH (07:57)
[2021-10-03] MEDS: FUROSEMIDE 20 MG TAB PO SCH (07:58)
[2021-10-03] MEDS: oxyBUTYnin 5 MG TAB PO SCH ×2 (07:58→20:05)
[2021-10-03] MEDS ORDERED: DIGOXIN 0.125 MG TAB PO SCH (09:00)
[2021-10-03] MEDS ORDERED: diltiaZEM **CD** 180 MG CAP PO SCH (09:00)
[2021-10-03] MEDS: METOPROLOL 5 MG/5 ML VIAL IV SCH ×3 (10:40→10:50)
[2021-10-03] MEDS ORDERED: DIGOXIN INJ 0.5 MG/2 ML AMP (J1160) IV STA (10:50)
[2021-10-03 11:52] LABS: CK-MB VALUE MASS 5.8 NG/ML (<3.6); MB/CK RELATIVE INDEX 7.25 (< OR =4)
[2021-10-03] MEDS ORDERED: NS 500 ML IV ONE (12:30)
[2021-10-03 13:02] LABS: HEMATOCRIT 27.8 % (42.0-52.0); HEMOGLOBIN 9.4 g/dl (13.5-17.5); MEAN CORPUSCULAR HEMOGLOBIN 29.6 pg (27.0-33.0); MEAN CORPUSCULAR HGB CONC 33.8 g/dl (32.0-36.5); MEAN CORPUSCULAR VOLUME 87.4 fl (80.0-96.0); PLATELET COUNT, AUTOMATED 202 10^3/uL (150-450); RED BLOOD COUNT 3.18 10^6/uL (4.30-6.10); WHITE BLOOD COUNT 10.8 10^3/uL (4.0-10.0)
[2021-10-03] MEDS ORDERED: NS 1,000 ML IV SCH (13:40)
[2021-10-03] MEDS ORDERED: cefTRIAXone SOD 1 GM in D5W MINI-BAG PLUS 50 ML IV SCH (16:00)
[2021-10-03] MEDS: AMIODARONE 200 MG TAB (PACERONE) PO SCH ×2 (17:23→20:05)
[2021-10-03] MEDS: TAMSULOSIN 0.4 MG CAP PO SCH (20:05)
[2021-10-03 20:14] LABS: HEMATOCRIT 27.4 % (42.0-52.0); HEMOGLOBIN 9.3 g/dl (13.5-17.5); MEAN CORPUSCULAR HEMOGLOBIN 29.4 pg (27.0-33.0); MEAN CORPUSCULAR HGB CONC 33.9 g/dl (32.0-36.5); MEAN CORPUSCULAR VOLUME 86.7 fl (80.0-96.0); PLATELET COUNT, AUTOMATED 185 10^3/uL (150-450); RED BLOOD COUNT 3.16 10^6/uL (4.30-6.10); WHITE BLOOD COUNT 11.1 10^3/uL (4.0-10.0)
[2021-10-04] VITALS (7 sets, daily range): BP systolic 98–113; BP diastolic 51–61
[2021-10-04 02:08] LABS: HEMATOCRIT 28.5 % (42.0-52.0); HEMOGLOBIN 9.4 g/dl (13.5-17.5); MEAN CORPUSCULAR HEMOGLOBIN 29.4 pg (27.0-33.0); MEAN CORPUSCULAR VOLUME 89.1 fl (80.0-96.0); PLATELET COUNT, AUTOMATED 182 10^3/uL (150-450); WHITE BLOOD COUNT 11.9 10^3/uL (4.0-10.0)
[2021-10-04] MEDS: LEVOTHYROXINE 75MCG TABLET (0.075MG) PO SCH (04:49)
[2021-10-04] MEDS: TIOTROPIUM INHALER/CAPSULE (SPIRIVA) INH SCH (07:01)
[2021-10-04] MEDS: SYMBICORT 160/4.5MCG INHALER 6GM INH SCH ×2 (07:02→20:19)
[2021-10-04 08:14] LABS: HEMOGLOBIN 9.2 g/dl (13.5-17.5); MEAN CORPUSCULAR HEMOGLOBIN 29.2 pg (27.0-33.0); MEAN CORPUSCULAR HGB CONC 32.9 g/dl (32.0-36.5); MEAN CORPUSCULAR VOLUME 88.9 fl (80.0-96.0); PLATELET COUNT, AUTOMATED 184 10^3/uL (150-450); RED BLOOD COUNT 3.15 10^6/uL (4.30-6.10); WHITE BLOOD COUNT 11.5 10^3/uL (4.0-10.0)
[2021-10-04 08:57] LABS: BLOOD UREA NITROGEN 21 MG/DL (7-18); CALCIUM LEVEL 8.3 MG/DL (8.8-10.2); CARBON DIOXIDE LEVEL 26 MEQ/L (21-32); CHLORIDE LEVEL 107 MEQ/L (98-107); CREATININE FOR GFR 0.59 MG/DL (0.70-1.30); GLOMERULAR FILTRATION RATE > 60.0 (>42); GLUCOSE, FASTING 80 MG/DL (70-100); MAGNESIUM LEVEL 1.9 MG/DL (1.8-2.4); SODIUM LEVEL 142 MEQ/L (136-145)
[2021-10-04] MEDS: FUROSEMIDE 20 MG TAB PO SCH (09:00)
[2021-10-04] MEDS: DOCUSATE SODIUM 100MG CAPSULE PO SCH ×2 (09:16→21:10)
[2021-10-04] MEDS: oxyBUTYnin 5 MG TAB PO SCH ×2 (09:16→21:10)
[2021-10-04] MEDS: VITAMIN D 1,000 INTERNATIONAL UNITS TABLET PO SCH (09:17)
[2021-10-04] MEDS: AMIODARONE 200 MG TAB (PACERONE) PO SCH ×3 (09:17→21:10)
[2021-10-04] MEDS: SODIUM CHLORIDE NASAL 0.65% SPRAY BTL (OCEAN) PRN (09:26)
[2021-10-04] MEDS: ONDANSETRON 4MG/2ML VIAL IV PRN (16:22)
[2021-10-04] MEDS: TAMSULOSIN 0.4 MG CAP PO SCH (21:10)
[2021-10-05] VITALS: BP 106/53
[2021-10-05] MEDS: ACETAMINOPHEN TAB 650MG DOSE (2X325MG) PO PRN (00:35)
[2021-10-05] MEDS: ONDANSETRON 4MG/2ML VIAL IV PRN (03:43)
[2021-10-05 04:00] VITALS: BP 122/55
[2021-10-05] MEDS: LEVOTHYROXINE 75MCG TABLET (0.075MG) PO SCH (05:34)
[2021-10-05 05:51] LABS: HEMATOCRIT 27.2 % (42.0-52.0); MEAN CORPUSCULAR HEMOGLOBIN 29.4 pg (27.0-33.0); MEAN CORPUSCULAR HGB CONC 33.1 g/dl (32.0-36.5); MEAN CORPUSCULAR VOLUME 88.9 fl (80.0-96.0); PLATELET COUNT, AUTOMATED 224 10^3/uL (150-450); RED BLOOD COUNT 3.06 10^6/uL (4.30-6.10); WHITE BLOOD COUNT 11.5 10^3/uL (4.0-10.0)
[2021-10-05 06:14] LABS: BLOOD UREA NITROGEN 19 MG/DL (7-18); CALCIUM LEVEL 8.5 MG/DL (8.8-10.2); CARBON DIOXIDE LEVEL 32 MEQ/L (21-32); CHLORIDE LEVEL 107 MEQ/L (98-107); CREATININE FOR GFR 0.69 MG/DL (0.70-1.30); GLOMERULAR FILTRATION RATE > 60.0 (>42); GLUCOSE, FASTING 139 MG/DL (70-100); POTASSIUM SERUM 4.2 MEQ/L (3.5-5.1); SODIUM LEVEL 139 MEQ/L (136-145)
[2021-10-05] MEDS: SYMBICORT 160/4.5MCG INHALER 6GM INH SCH ×2 (07:19→19:55)
[2021-10-05] MEDS: TIOTROPIUM INHALER/CAPSULE (SPIRIVA) INH SCH (07:19)
[2021-10-05 07:37] VITALS: BP 112/57
[2021-10-05] MEDS: VITAMIN D 1,000 INTERNATIONAL UNITS TABLET PO SCH (08:30)
[2021-10-05] MEDS: DOCUSATE SODIUM 100MG CAPSULE PO SCH ×2 (08:30→20:19)
[2021-10-05] MEDS: AMIODARONE 200 MG TAB (PACERONE) PO SCH ×3 (08:30→20:20)
[2021-10-05] MEDS: oxyBUTYnin 5 MG TAB PO SCH ×2 (08:31→20:19)
[2021-10-05] MEDS: FUROSEMIDE 20 MG TAB PO SCH (08:32)
[2021-10-05 12:00] VITALS: BP 118/56
[2021-10-05 14:04] VITALS: BP 118/60
[2021-10-05] MEDS: SODIUM CHLORIDE NASAL 0.65% SPRAY BTL (OCEAN) PRN (14:24)
[2021-10-05 20:20] VITALS: BP 111/53
[2021-10-05] MEDS: TAMSULOSIN 0.4 MG CAP PO SCH (20:20)
[2021-10-06] VITALS (22 sets, daily range): BP systolic 96–123; BP diastolic 46–75; O2SAT 98–100
[2021-10-06] MEDS: LEVOTHYROXINE 75MCG TABLET (0.075MG) PO SCH (05:49)
[2021-10-06] MEDS: SODIUM CHLORIDE NASAL 0.65% SPRAY BTL (OCEAN) PRN (05:49)
[2021-10-06 06:56] LABS: HEMATOCRIT 26.4 % (42.0-52.0); HEMOGLOBIN 8.7 g/dl (13.5-17.5); MEAN CORPUSCULAR HEMOGLOBIN 29.4 pg (27.0-33.0); MEAN CORPUSCULAR VOLUME 89.2 fl (80.0-96.0); PLATELET COUNT, AUTOMATED 230 10^3/uL (150-450); RED BLOOD COUNT 2.96 10^6/uL (4.30-6.10)
[2021-10-06] MEDS: TIOTROPIUM INHALER/CAPSULE (SPIRIVA) INH SCH (07:11)
[2021-10-06] MEDS: SYMBICORT 160/4.5MCG INHALER 6GM INH SCH ×2 (07:11→20:03)
[2021-10-06 07:23] LABS: BLOOD UREA NITROGEN 14 MG/DL (7-18); CARBON DIOXIDE LEVEL 37 MEQ/L (21-32); CHLORIDE LEVEL 105 MEQ/L (98-107); CREATININE FOR GFR 0.64 MG/DL (0.70-1.30); GLOMERULAR FILTRATION RATE > 60.0 (>42); GLUCOSE, FASTING 104 MG/DL (70-100); MAGNESIUM LEVEL 1.8 MG/DL (1.8-2.4); POTASSIUM SERUM 3.7 MEQ/L (3.5-5.1); SODIUM LEVEL 142 MEQ/L (136-145)
[2021-10-06] MEDS: FUROSEMIDE 20 MG TAB PO SCH (08:33)
[2021-10-06] MEDS: DOCUSATE SODIUM 100MG CAPSULE PO SCH ×2 (08:33→20:19)
[2021-10-06] MEDS: VITAMIN D 1,000 INTERNATIONAL UNITS TABLET PO SCH (08:34)
[2021-10-06] MEDS: oxyBUTYnin 5 MG TAB PO SCH ×2 (08:35→20:20)
[2021-10-06] MEDS: AMIODARONE 200 MG TAB (PACERONE) PO SCH ×3 (08:36→20:19)
[2021-10-06 11:10] LABS: FREE T4 1.35 NG/DL (0.76-1.46)
[2021-10-06] MEDS: ACETAMINOPHEN TAB 650MG DOSE (2X325MG) PO PRN (15:27)
[2021-10-06] MEDS: TAMSULOSIN 0.4 MG CAP PO SCH (20:19)
[2021-10-07] VITALS (8 sets, daily range): BP systolic 103–104; BP diastolic 57–68; O2SAT 98–99
[2021-10-07] MEDS: LEVOTHYROXINE 75MCG TABLET (0.075MG) PO SCH (05:35)
[2021-10-07] MEDS: ACETAMINOPHEN TAB 650MG DOSE (2X325MG) PO PRN (06:40)
[2021-10-07] MEDS: SYMBICORT 160/4.5MCG INHALER 6GM INH SCH (07:59)
[2021-10-07] MEDS: TIOTROPIUM INHALER/CAPSULE (SPIRIVA) INH SCH (07:59)
[2021-10-07 08:38] LABS: HEMATOCRIT 27.5 % (42.0-52.0); HEMOGLOBIN 9.2 g/dl (13.5-17.5); MEAN CORPUSCULAR HEMOGLOBIN 29.7 pg (27.0-33.0); MEAN CORPUSCULAR HGB CONC 33.5 g/dl (32.0-36.5); MEAN CORPUSCULAR VOLUME 88.7 fl (80.0-96.0); PLATELET COUNT, AUTOMATED 278 10^3/uL (150-450); WHITE BLOOD COUNT 17.9 10^3/uL (4.0-10.0)
[2021-10-07] MEDS: FUROSEMIDE 20 MG TAB PO SCH (08:53)
[2021-10-07] MEDS ORDERED: FINASTERIDE 5MG TAB PO SCH (09:00)
[2021-10-07 09:06] LABS: BLOOD UREA NITROGEN 17 MG/DL (7-18); CALCIUM LEVEL 9.3 MG/DL (8.8-10.2); CARBON DIOXIDE LEVEL 35 MEQ/L (21-32); CHLORIDE LEVEL 100 MEQ/L (98-107); CREATININE FOR GFR 0.73 MG/DL (0.70-1.30); GLOMERULAR FILTRATION RATE > 60.0 (>42); GLUCOSE, FASTING 141 MG/DL (70-100); MAGNESIUM LEVEL 1.7 MG/DL (1.8-2.4); POTASSIUM SERUM 3.7 MEQ/L (3.5-5.1); SODIUM LEVEL 137 MEQ/L (136-145)
[2021-10-07] MEDS: AMIODARONE 200 MG TAB (PACERONE) PO SCH (09:08)
[2021-10-07] MEDS: VITAMIN D 1,000 INTERNATIONAL UNITS TABLET PO SCH (09:08)
[2021-10-07] MEDS: oxyBUTYnin 5 MG TAB PO SCH (09:08)
[2021-10-07] MEDS: DOCUSATE SODIUM 100MG CAPSULE PO SCH (09:08)
[2021-10-07] MEDS ORDERED: FINA5TAB2 PO (10:47)
[2021-10-07] MEDS ORDERED: AMIO200T49 PO (10:47)
== END 2021-10-07 14:30 | disposition home health service (06) | DRG 696 ==
LOC: EDBD 10:55 → M ED 10:55 → M ED INP 14:18 → M MS5PR 15:00 → M PCU 10-03 10:23
PROVIDERS: ADMIT Family Medicine; ATTEND Family Medicine
PROC: 30233N1 Transfusion of Nonautologous Red Blood Cells into Peripheral Vein, Percutaneous Approach (ICD-10-PCS; principal; 2021-10-03)
DX: R31.0 Gross hematuria (principal); J96.11 Chronic respiratory failure with hypoxia; D62 Acute posthemorrhagic anemia; I48.92 Unspecified atrial flutter; J44.9 Chronic obstructive pulmonary disease, unspecified; I10 Essential (primary) hypertension; N40.0 Benign prostatic hyperplasia without lower urinary tract symptoms; R97.20 Elevated prostate specific antigen [PSA]; Z87.891 Personal history of nicotine dependence; R33.9 Retention of urine, unspecified; Z99.81 Dependence on supplemental oxygen; I48.0 Paroxysmal atrial fibrillation; N17.9 Acute kidney failure, unspecified; Z79.01 Long term (current) use of anticoagulants; Z79.899 Other long term (current) drug therapy; F41.9 Anxiety disorder, unspecified; E03.9 Hypothyroidism, unspecified

== ENCOUNTER → 2021-10-27 | Outpatient (REF) | payer OTHER ==
[~2021-10-27] MED LIST changes: +AMIO200T49 PO; +BACTDSTA PO; +DILT1CAP4 PO; +FINA5TAB2 PO; +SIMV20TA22 PO; +SYNT75TA PO
[2021-10-27 14:38] LABS: ALBUMIN 3.6 GM/DL (3.2-5.2); ALT/SGPT 45 U/L (12-78); BILIRUBIN,TOTAL 0.5 MG/DL (0.2-1.0); BLOOD UREA NITROGEN 23 MG/DL (7-18); CALCIUM LEVEL 8.7 MG/DL (8.8-10.2); CARBON DIOXIDE LEVEL 38 MEQ/L (21-32); CHLORIDE LEVEL 98 MEQ/L (98-107); FREE T4 1.38 NG/DL (0.76-1.46); GLOMERULAR FILTRATION RATE > 60.0 (>42); GLUCOSE, FASTING 86 MG/DL (70-100); POTASSIUM SERUM 4.4 MEQ/L (3.5-5.1); SODIUM LEVEL 138 MEQ/L (136-145); TOTAL PROTEIN 6.4 GM/DL (6.4-8.2)
== END ==
LOC: M LAB REF 13:20
PROVIDERS: ATTEND Nurse Practitioner Family
DX: I48.0 Paroxysmal atrial fibrillation (principal); I50.32 Chronic diastolic (congestive) heart failure

== ENCOUNTER 2021-12-02 06:34 | Inpatient (IN) | payer BC, OTHER ==
[~2021-12-02] VITALS: Ht 172.7 cm; Wt 65.5 kg
[2021-12-02 07:18] LABS: BASO % 0.4 % (0.0-1.0); EOS # 0.1 10^3/uL (0.0-0.5); EOS % 0.9 % (0.0-3.0); HEMATOCRIT 33.3 % (42.0-52.0); HEMOGLOBIN 10.4 g/dl (13.5-17.5); LYMPH # 0.7 10^3/uL (1.5-5.0); LYMPH % 6.7 % (24.0-44.0); MEAN CORPUSCULAR HEMOGLOBIN 27.7 pg (27.0-33.0); MEAN CORPUSCULAR HGB CONC 31.2 g/dl (32.0-36.5); MEAN CORPUSCULAR VOLUME 88.6 fl (80.0-96.0); MONO # 0.9 10^3/uL (0.0-0.8); NEUTROPHILS # 9.1 10^3/uL (1.5-8.5); NEUTROPHILS % 83.5 % (36.0-66.0); PLATELET COUNT, AUTOMATED 228 10^3/uL (150-450); RED BLOOD COUNT 3.76 10^6/uL (4.30-6.10); WHITE BLOOD COUNT 10.9 10^3/uL (4.0-10.0)
[2021-12-02 07:28] LABS: ABG BASE EXCESS 7.9 (-2.0-2.0); ABG HCO3 33.2 MEQ/L (22.0-26.0); ABG O2 SATURATION 97.5 % (95.0-99.0); ABG PARTIAL PRESSURE CO2 49.7 mmHg (35.0-45.0); ABG PARTIAL PRESSURE O2 102.5 mmHg (75.0-100.0); ABG STANDARD HCO3 31.7 MEQ/L (22.0-26.0); ABG TOTAL CO2 34.7 MEQ/L (23.0-31.0); ABG pH (ARTERIAL) 7.442 UNITS (7.350-7.450)
[2021-12-02 07:45] LABS: ALBUMIN 3.2 GM/DL (3.2-5.2); ALT/SGPT 52 U/L (12-78); BILIRUBIN,DIRECT 0.1 MG/DL (0.0-0.2); BILIRUBIN,TOTAL 0.4 MG/DL (0.2-1.0); BLOOD UREA NITROGEN 19 MG/DL (7-18); CALCIUM LEVEL 9.6 MG/DL (8.8-10.2); CARBON DIOXIDE LEVEL 36 MEQ/L (21-32); CHLORIDE LEVEL 97 MEQ/L (98-107); GLOMERULAR FILTRATION RATE > 60.0 (>42); GLUCOSE, FASTING 96 MG/DL (70-100); NT-PRO BNP 125 PG/ML (<450); POTASSIUM SERUM 4.1 MEQ/L (3.5-5.1); SODIUM LEVEL 139 MEQ/L (136-145); TOTAL PROTEIN 6.6 GM/DL (6.4-8.2)
[2021-12-02 07:46] LABS: CK-MB VALUE MASS 3.6 NG/ML (<3.6); MB/CK RELATIVE INDEX 5.14 (< OR =4)
[2021-12-02] MEDS ORDERED: dexameTHASONE 20MG/5ML VIAL (J1100 PER 1MG) IV ONE (08:35)
[2021-12-02] MEDS ORDERED: ALBUTEROL SULFATE 2.5 MG/0.5 ML INH NEB SOLN INH ONE (08:35)
[2021-12-02] MEDS ORDERED: NS 1,000 ML IV ONE (08:35)
[2021-12-02] MEDS ORDERED: IPRATROPIUM 0.02% SOLN 0.5MG 2.5ML NEB INH ONE (08:35)
[2021-12-02] MEDS ORDERED: ISOVUE-370 76% 100ML VIAL As Ordered ONE (08:41)
[2021-12-02 09:15] LABS: CK-MB VALUE MASS 3.8 NG/ML (<3.6); MB/CK RELATIVE INDEX 6.23 (< OR =4)
[2021-12-02] MEDS ORDERED: ACETAMINOPHEN TAB 650MG DOSE (2X325MG) PO ONE (12:25)
[2021-12-02] MEDS ORDERED: OCEA0.654 ×2 (14:31)
[2021-12-02] MEDS ORDERED: DOCU100C16 PO (14:31)
[2021-12-02] MEDS ORDERED: FINA5TAB2 PO (14:31)
[2021-12-02] MEDS ORDERED: ONDA-195 PO (14:31)
[2021-12-02] MEDS ORDERED: MULT1TAB8 PO (14:31)
[2021-12-02] MEDS ORDERED: ACET-683 PO (14:31)
[2021-12-02] MEDS ORDERED: DOCU100T8 PO (14:31)
[2021-12-02] MEDS ORDERED: AMIO200T49 PO (14:31)
[2021-12-02] MEDS ORDERED: DOCU8.6T PO (14:31)
[2021-12-02] MEDS ORDERED: ONDA-196 PO (14:33)
[2021-12-02] MEDS ORDERED: SPIR12.9 INH (14:44)
[2021-12-02] MEDS ORDERED: HOME MED LIST COMPLETE! XX SCH (14:45)
[2021-12-02] MEDS ORDERED: guaiFENesin 200 MG TAB PO PRN (15:00)
[2021-12-02] MEDS ORDERED: BISACODYL 10 MG SUPP PR ONE (15:00)
[2021-12-02 17:30] VITALS: BP 111/55
[2021-12-02] MEDS: predniSONE 20 MG TAB PO SCH (18:25)
[2021-12-02] MEDS: DOXYCYCLINE HYCLATE 100 MG in D5W MINI-BAG PLUS 100 ML IV SCH (18:26)
[2021-12-02] MEDS ORDERED: BISACODYL 10 MG SUPP PR PRN (19:00)
[2021-12-02] MEDS: SYMBICORT 160/4.5MCG INHALER 6GM INH SCH (19:33)
[2021-12-02] MEDS: ALBUTEROL SULFATE 2.5 MG/0.5 ML INH NEB SOLN NEB SCH ×2 (19:33→23:30)
[2021-12-02 20:00] VITALS: BP 111/56
[2021-12-02] MEDS: SENOKOT S TAB PO SCH (21:16)
[2021-12-02] MEDS: MIRALAX *UNIT DOSE* 17GM PACKET PO SCH (21:16)
[2021-12-02] MEDS: AMIODARONE 200 MG TAB (PACERONE) PO SCH (21:17)
[2021-12-02] MEDS: SIMVASTATIN 20 MG TAB PO SCH (21:17)
[2021-12-02 23:43] LABS: INR 1.34
[2021-12-03] MEDS: ACETAMINOPHEN TAB 650MG DOSE (2X325MG) PO PRN ×3 (00:07→21:07)
[2021-12-03] MEDS: APIXABAN 5 MG TAB (ELIQUIS) PO SCH ×3 (01:28→21:03)
[2021-12-03] MEDS ORDERED: FLUTICASONE PROP 0.05% NASAL SPRAY 16 GM (FLONASE) NARES PRN (01:35)
[2021-12-03] MEDS ORDERED: TAMSULOSIN 0.4 MG CAP PO ONE ×2 (02:00)
[2021-12-03] MEDS: ALBUTEROL SULFATE 2.5 MG/0.5 ML INH NEB SOLN NEB SCH ×6 (03:31→23:06)
[2021-12-03] MEDS: DOXYCYCLINE HYCLATE 100 MG in D5W MINI-BAG PLUS 100 ML IV SCH ×2 (03:54→17:11)
[2021-12-03 06:00] VITALS: BP 110/57
[2021-12-03 06:01] LABS: BASO % 0.2 % (0.0-1.0); HEMATOCRIT 30.4 % (42.0-52.0); HEMOGLOBIN 9.5 g/dl (13.5-17.5); LYMPH # 0.4 10^3/uL (1.5-5.0); LYMPH % 6.9 % (24.0-44.0); MEAN CORPUSCULAR HEMOGLOBIN 26.8 pg (27.0-33.0); MEAN CORPUSCULAR HGB CONC 31.3 g/dl (32.0-36.5); MEAN CORPUSCULAR VOLUME 85.6 fl (80.0-96.0); MONO # 0.3 10^3/uL (0.0-0.8); MONO % 6.7 % (2.0-8.0); NEUTROPHILS # 4.3 10^3/uL (1.5-8.5); PLATELET COUNT, AUTOMATED 194 10^3/uL (150-450); RED BLOOD COUNT 3.55 10^6/uL (4.30-6.10); WHITE BLOOD COUNT 5.1 10^3/uL (4.0-10.0)
[2021-12-03] MEDS: LEVOTHYROXINE 75MCG TABLET (0.075MG) PO SCH (06:12)
[2021-12-03 06:29] LABS: BLOOD UREA NITROGEN 24 MG/DL (7-18); CALCIUM LEVEL 9.2 MG/DL (8.8-10.2); CARBON DIOXIDE LEVEL 35 MEQ/L (21-32); CHLORIDE LEVEL 99 MEQ/L (98-107); GLOMERULAR FILTRATION RATE > 60.0 (>42); GLUCOSE, FASTING 131 MG/DL (70-100); POTASSIUM SERUM 4.2 MEQ/L (3.5-5.1); SODIUM LEVEL 139 MEQ/L (136-145)
[2021-12-03] MEDS: SYMBICORT 160/4.5MCG INHALER 6GM INH SCH ×2 (07:19→19:50)
[2021-12-03] MEDS: TIOTROPIUM INHALER/CAPSULE (SPIRIVA) INH SCH (07:20)
[2021-12-03] MEDS ORDERED: FUROSEMIDE 20 MG TAB PO SCH (09:00)
[2021-12-03] MEDS ORDERED: TAMSULOSIN 0.4 MG CAP PO SCH ×2 (09:00→21:00)
[2021-12-03] MEDS ORDERED: diltiaZEM **CD** 180 MG CAP PO SCH (09:00)
[2021-12-03] MEDS ORDERED: SPIRONOLACTONE 12.5MG PER 1/2 TABLET PO SCH (09:00)
[2021-12-03] MEDS: MIRALAX *UNIT DOSE* 17GM PACKET PO SCH ×2 (10:30→21:03)
[2021-12-03] MEDS: MULTIVITAMINS/MINERALS THERAP 1 TAB PO SCH (10:30)
[2021-12-03] MEDS: SODIUM CHLORIDE NASAL 0.65% SPRAY BTL (OCEAN) SCH (10:31)
[2021-12-03] MEDS: SENOKOT S TAB PO SCH ×2 (10:31→21:03)
[2021-12-03] MEDS: predniSONE 20 MG TAB PO SCH (10:32)
[2021-12-03] MEDS: FINASTERIDE 5MG TAB PO SCH (10:32)
[2021-12-03] MEDS: VITAMIN D 1,000 INTERNATIONAL UNITS TABLET PO SCH (10:32)
[2021-12-03] MEDS: DIGOXIN 0.125 MG TAB PO SCH (10:33)
[2021-12-03] MEDS: AMIODARONE 200 MG TAB (PACERONE) PO SCH ×2 (10:33→21:02)
[2021-12-03] MEDS: DOCUSATE SODIUM 100MG CAPSULE PO SCH (10:39)
[2021-12-03 10:40] VITALS: BP 99/47
[2021-12-03 14:00] VITALS: BP 116/53
[2021-12-03] MEDS ORDERED: DOCUSATE SODIUM 100MG CAPSULE PO SCH (17:30)
[2021-12-03] MEDS ORDERED: FLEET ENEMA PR ONE (17:30)
[2021-12-03] MEDS: MAGNESIUM CITRATE 300 ML BTL PO ONE ×2 (20:00→21:03)
[2021-12-03 20:20] VITALS: BP 108/63
[2021-12-03] MEDS: SIMVASTATIN 20 MG TAB PO SCH (21:03)
[2021-12-04] MEDS: ALBUTEROL SULFATE 2.5 MG/0.5 ML INH NEB SOLN NEB SCH ×5 (04:00→15:01)
[2021-12-04] MEDS: DOXYCYCLINE HYCLATE 100 MG in D5W MINI-BAG PLUS 100 ML IV SCH (05:27)
[2021-12-04] MEDS: LEVOTHYROXINE 75MCG TABLET (0.075MG) PO SCH (05:27)
[2021-12-04 05:33] VITALS: BP 104/48
[2021-12-04 06:08] LABS: BASO % 0.1 % (0.0-1.0); HEMATOCRIT 30.9 % (42.0-52.0); HEMOGLOBIN 9.5 g/dl (13.5-17.5); LYMPH # 0.6 10^3/uL (1.5-5.0); LYMPH % 6.8 % (24.0-44.0); MEAN CORPUSCULAR HEMOGLOBIN 26.9 pg (27.0-33.0); MEAN CORPUSCULAR HGB CONC 30.7 g/dl (32.0-36.5); MEAN CORPUSCULAR VOLUME 87.5 fl (80.0-96.0); MONO # 1.1 10^3/uL (0.0-0.8); MONO % 11.3 % (2.0-8.0); NEUTROPHILS # 7.5 10^3/uL (1.5-8.5); NEUTROPHILS % 81.2 % (36.0-66.0); PLATELET COUNT, AUTOMATED 221 10^3/uL (150-450); RED BLOOD COUNT 3.53 10^6/uL (4.30-6.10); WHITE BLOOD COUNT 9.3 10^3/uL (4.0-10.0)
[2021-12-04 06:23] LABS: BLOOD UREA NITROGEN 27 MG/DL (7-18); CALCIUM LEVEL 8.8 MG/DL (8.8-10.2); CARBON DIOXIDE LEVEL 37 MEQ/L (21-32); CHLORIDE LEVEL 104 MEQ/L (98-107); CREATININE FOR GFR 0.93 MG/DL (0.70-1.30); GLOMERULAR FILTRATION RATE > 60.0 (>42); GLUCOSE, FASTING 107 MG/DL (70-100); POTASSIUM SERUM 4.1 MEQ/L (3.5-5.1); SODIUM LEVEL 143 MEQ/L (136-145)
[2021-12-04] MEDS: SYMBICORT 160/4.5MCG INHALER 6GM INH SCH (07:26)
[2021-12-04] MEDS: TIOTROPIUM INHALER/CAPSULE (SPIRIVA) INH SCH (07:27)
[2021-12-04] MEDS ORDERED: MAGNESIUM CITRATE 300 ML BTL PO ONE (08:50)
[2021-12-04 09:00] VITALS: BP 103/48
[2021-12-04] MEDS ORDERED: diltiaZEM **CD** 180 MG CAP PO SCH (09:00)
[2021-12-04] MEDS: predniSONE 20 MG TAB PO SCH (10:22)
[2021-12-04] MEDS: DIGOXIN 0.125 MG TAB PO SCH (10:25)
[2021-12-04] MEDS: AMIODARONE 200 MG TAB (PACERONE) PO SCH (10:25)
[2021-12-04] MEDS: APIXABAN 5 MG TAB (ELIQUIS) PO SCH (10:25)
[2021-12-04] MEDS: SENOKOT S TAB PO SCH (10:25)
[2021-12-04] MEDS: VITAMIN D 1,000 INTERNATIONAL UNITS TABLET PO SCH (10:25)
[2021-12-04] MEDS: MULTIVITAMINS/MINERALS THERAP 1 TAB PO SCH (10:26)
[2021-12-04] MEDS: FINASTERIDE 5MG TAB PO SCH (10:26)
[2021-12-04] MEDS: MIRALAX *UNIT DOSE* 17GM PACKET PO SCH (10:27)
[2021-12-04] MEDS: DOCUSATE SODIUM 100MG CAPSULE PO SCH (10:27)
[2021-12-04] MEDS: SODIUM CHLORIDE NASAL 0.65% SPRAY BTL (OCEAN) SCH (10:28)
[2021-12-04] MEDS ORDERED: DOCU8.6T PO (12:28)
[2021-12-04] MEDS ORDERED: PRED20TA PO (12:28)
[2021-12-04] MEDS ORDERED: MIRA1POW3 PO (12:28)
[2021-12-04] MEDS ORDERED: DOCU100T8 PO (12:28)
[2021-12-04] MEDS ORDERED: DOXY100C3 PO (12:28)
[2021-12-04] MEDS ORDERED: FLOM0.4C39 PO (12:28)
[2021-12-04] MEDS ORDERED: CARD180C4 PO (12:29)
[2021-12-04] MEDS ORDERED: ELIQ5TAB PO (12:35)
== END 2021-12-04 15:24 | disposition home health service (06) | DRG 191 ==
LOC: EDBD 06:34 → M ED 06:34 → M ED INP 11:43 → ENRESERV 15:53 → M MSPAV 17:14
PROVIDERS: ADMIT Internal Medicine Nephrology; ATTEND Internal Medicine Nephrology
DX: J44.1 Chronic obstructive pulmonary disease with (acute) exacerbation (principal); J96.11 Chronic respiratory failure with hypoxia; I50.32 Chronic diastolic (congestive) heart failure; I48.91 Unspecified atrial fibrillation; I11.0 Hypertensive heart disease with heart failure; E78.5 Hyperlipidemia, unspecified; K59.09 Other constipation; N40.0 Benign prostatic hyperplasia without lower urinary tract symptoms; E03.9 Hypothyroidism, unspecified; R14.0 Abdominal distension (gaseous); Z99.81 Dependence on supplemental oxygen; Z79.899 Other long term (current) drug therapy

== ENCOUNTER 2021-12-08 11:41 | Inpatient (IN) | payer OTHER, BC, MEDICARE ==
[~2021-12-08] VITALS: Ht 175.3 cm; Wt 65.4 kg
[~2021-12-08 11:41] MED LIST changes: +ACET-683 PO; +DOCU100C16 PO; +DOCU100T8 PO; +DOCU8.6T PO; +DOXY100C3 PO; +FLUTISP; -FLUTISP NARES; +MIRA1POW3 PO; +MULT1TAB8 PO; +OCEA0.654; +ONDA-195 PO; +ONDA-196 PO; +SPIR12.9 INH
[2021-12-08 12:58] LABS: VENOUS BASE EXCESS 3.1 (-2.0-2.0); VENOUS HCO3 29.4 MEQ/L (23.0-27.0); VENOUS O2 SATURATION 68.3 % (60.0-80.0); VENOUS PARTIAL PRESSURE CO2 53.4 mmHg (38.0-50.0); VENOUS PARTIAL PRESSURE O2 37.4 mmHg (30.0-50.0); VENOUS PH 7.359 UNITS (7.330-7.430); VENOUS STANDARD HCO3 26.6 MEQ/L; VENOUS TOTAL CO2 31.1 MEQ/L (24.0-28.0)
[2021-12-08 13:04] LABS: BASO % 0.2 % (0.0-1.0); EOS # 0.2 10^3/uL (0.0-0.5); EOS % 1.4 % (0.0-3.0); HEMATOCRIT 34.4 % (42.0-52.0); HEMOGLOBIN 10.8 g/dl (13.5-17.5); LYMPH # 0.7 10^3/uL (1.5-5.0); LYMPH % 6.9 % (24.0-44.0); MEAN CORPUSCULAR HEMOGLOBIN 27.1 pg (27.0-33.0); MEAN CORPUSCULAR HGB CONC 31.4 g/dl (32.0-36.5); MEAN CORPUSCULAR VOLUME 86.4 fl (80.0-96.0); MONO # 0.9 10^3/uL (0.0-0.8); MONO % 8.2 % (2.0-8.0); NEUTROPHILS # 8.9 10^3/uL (1.5-8.5); NEUTROPHILS % 82.4 % (36.0-66.0); PLATELET COUNT, AUTOMATED 261 10^3/uL (150-450); RED BLOOD COUNT 3.98 10^6/uL (4.30-6.10); WHITE BLOOD COUNT 10.8 10^3/uL (4.0-10.0)
[2021-12-08 13:14] LABS: INR 1.33; PROTHROMBIN TIME 16.9 SECONDS (12.7-14.5)
[2021-12-08 13:39] LABS: BLOOD UREA NITROGEN 25 MG/DL (7-18); CREATININE FOR GFR 0.91 MG/DL (0.70-1.30); GLOMERULAR FILTRATION RATE > 60.0 (>42); GLUCOSE, FASTING 92 MG/DL (70-100)
[2021-12-08 13:40] LABS: ALT/SGPT 61 U/L (12-78); BILIRUBIN,DIRECT 0.2 MG/DL (0.0-0.2); BILIRUBIN,TOTAL 0.4 MG/DL (0.2-1.0); CALCIUM LEVEL 9.3 MG/DL (8.8-10.2); CARBON DIOXIDE LEVEL 36 MEQ/L (21-32); CHLORIDE LEVEL 99 MEQ/L (98-107); DIGOXIN LEVEL 1.5 NG/ML (0.5-2.0); NT-PRO BNP 46 PG/ML (<450); POTASSIUM SERUM 4.9 MEQ/L (3.5-5.1); SODIUM LEVEL 139 MEQ/L (136-145); TOTAL PROTEIN 6.1 GM/DL (6.4-8.2)
[2021-12-08] MEDS ORDERED: ISOVUE-370 76% 100ML VIAL As Ordered ONE (13:59)
[2021-12-08 15:53] VITALS: O2SAT 85
[2021-12-08] MEDS ORDERED: IPRATROPIUM 0.5MG/ALBUTEROL 2.5MG INH SOL UD 3ML (DUONEB) NEB ONE (16:00)
[2021-12-08] MEDS ORDERED: methylPREDNISolone 125MG 2ML VIAL IV ONE (16:00)
[2021-12-08 18:21] LABS: CK-MB VALUE MASS 4.1 NG/ML (<3.6); MB/CK RELATIVE INDEX 8.72 (< OR =4)
[2021-12-08 20:00] VITALS: BP 117/57
[2021-12-08] MEDS: IPRATROPIUM 0.5MG/ALBUTEROL 2.5MG INH SOL UD 3ML (DUONEB) NEB SCH ×2 (20:14→23:17)
[2021-12-08] MEDS ORDERED: DILT1CAP3 PO (22:03)
[2021-12-08] MEDS ORDERED: ELIQ5TAB PO (22:03)
[2021-12-08] MEDS ORDERED: DOCU100C16 PO (22:03)
[2021-12-08] MEDS ORDERED: MIRA1POW3 PO (22:03)
[2021-12-08] MEDS ORDERED: FLOM0.4C39 PO (22:03)
[2021-12-08] MEDS ORDERED: DOXY100C3 PO (22:03)
[2021-12-08] MEDS ORDERED: SENN1TAB41 PO (22:03)
[2021-12-08] MEDS ORDERED: VITMTA PO (22:04)
[2021-12-08] MEDS ORDERED: HOME MED LIST COMPLETE! XX SCH (22:05)
[2021-12-08] MEDS: MIRALAX *UNIT DOSE* 17GM PACKET PO SCH (23:32)
[2021-12-08] MEDS: SIMVASTATIN 20 MG TAB PO SCH (23:33)
[2021-12-08] MEDS: AMIODARONE 200 MG TAB (PACERONE) PO SCH (23:33)
[2021-12-08] MEDS: SENOKOT S TAB PO SCH (23:33)
[2021-12-08] MEDS: APIXABAN 5 MG TAB (ELIQUIS) PO SCH (23:33)
[2021-12-09] VITALS (7 sets, daily range): BP systolic 100–118; BP diastolic 51–68
[2021-12-09] MEDS ORDERED: DOXYCYCLINE HYCLATE 100MG TABLET PO ONE (00:25)
[2021-12-09] MEDS: ACETAMINOPHEN 500 MG TAB PO PRN (01:18)
[2021-12-09] MEDS: IPRATROPIUM 0.5MG/ALBUTEROL 2.5MG INH SOL UD 3ML (DUONEB) NEB SCH ×3 (03:00→11:21)
[2021-12-09] MEDS: LEVOTHYROXINE 75MCG TABLET (0.075MG) PO SCH (05:42)
[2021-12-09 05:46] LABS: HEMATOCRIT 31.3 % (42.0-52.0); HEMOGLOBIN 9.9 g/dl (13.5-17.5); MEAN CORPUSCULAR HEMOGLOBIN 27.3 pg (27.0-33.0); MEAN CORPUSCULAR HGB CONC 31.6 g/dl (32.0-36.5); MEAN CORPUSCULAR VOLUME 86.2 fl (80.0-96.0); PLATELET COUNT, AUTOMATED 244 10^3/uL (150-450); RED BLOOD COUNT 3.63 10^6/uL (4.30-6.10); WHITE BLOOD COUNT 6.3 10^3/uL (4.0-10.0)
[2021-12-09 06:06] LABS: ALBUMIN 2.6 GM/DL (3.2-5.2); ALT/SGPT 53 U/L (12-78); BILIRUBIN,TOTAL 0.2 MG/DL (0.2-1.0); BLOOD UREA NITROGEN 18 MG/DL (7-18); CALCIUM LEVEL 8.4 MG/DL (8.8-10.2); CARBON DIOXIDE LEVEL 32 MEQ/L (21-32); CHLORIDE LEVEL 100 MEQ/L (98-107); CREATININE FOR GFR 0.86 MG/DL (0.70-1.30); GLOMERULAR FILTRATION RATE > 60.0 (>42); GLUCOSE, FASTING 138 MG/DL (70-100); MAGNESIUM LEVEL 2.2 MG/DL (1.8-2.4); POTASSIUM SERUM 4.6 MEQ/L (3.5-5.1); SODIUM LEVEL 134 MEQ/L (136-145); TOTAL PROTEIN 5.6 GM/DL (6.4-8.2)
[2021-12-09] MEDS: diltiaZEM **CD** 180 MG CAP PO SCH (09:00)
[2021-12-09] MEDS: VITAMIN D 1,000 INTERNATIONAL UNITS TABLET PO SCH (09:44)
[2021-12-09] MEDS: APIXABAN 5 MG TAB (ELIQUIS) PO SCH ×2 (09:44→22:00)
[2021-12-09] MEDS: SENOKOT S TAB PO SCH ×2 (09:44→21:59)
[2021-12-09] MEDS: MIRALAX *UNIT DOSE* 17GM PACKET PO SCH ×2 (09:44→22:01)
[2021-12-09] MEDS: DOCUSATE SODIUM 100MG CAPSULE PO SCH ×2 (09:44→22:00)
[2021-12-09] MEDS: DIGOXIN 0.125 MG TAB PO SCH (09:45)
[2021-12-09] MEDS: FINASTERIDE 5MG TAB PO SCH (09:45)
[2021-12-09] MEDS: MULTIVITAMINS/MINERALS THERAP 1 TAB PO SCH (09:45)
[2021-12-09] MEDS: TAMSULOSIN 0.4 MG CAP PO SCH (09:45)
[2021-12-09] MEDS: FUROSEMIDE 20 MG TAB PO SCH (09:45)
[2021-12-09] MEDS: AMIODARONE 200 MG TAB (PACERONE) PO SCH ×2 (09:45→22:00)
[2021-12-09 11:20] LABS: DIGOXIN LEVEL 1.1 NG/ML (0.5-2.0)
[2021-12-09] MEDS: IPRATROPIUM 0.5MG/ALBUTEROL 2.5MG INH SOL UD 3ML (DUONEB) NEB PRN (17:51)
[2021-12-09] MEDS ORDERED: TIOTROPIUM INHALER/CAPSULE (SPIRIVA) INH ONE (19:45)
[2021-12-09] MEDS: SYMBICORT 160/4.5MCG INHALER 6GM INH SCH (19:50)
[2021-12-09] MEDS: SIMVASTATIN 20 MG TAB PO SCH (21:59)
[2021-12-10] MEDS: IPRATROPIUM 0.5MG/ALBUTEROL 2.5MG INH SOL UD 3ML (DUONEB) NEB PRN ×2 (05:04→11:15)
[2021-12-10 06:00] VITALS: BP 115/58
[2021-12-10] MEDS: LEVOTHYROXINE 75MCG TABLET (0.075MG) PO SCH (06:08)
[2021-12-10] MEDS: SYMBICORT 160/4.5MCG INHALER 6GM INH SCH ×2 (07:20→19:33)
[2021-12-10 08:49] LABS: HEMATOCRIT 32.8 % (42.0-52.0); HEMOGLOBIN 10.3 g/dl (13.5-17.5); MEAN CORPUSCULAR HEMOGLOBIN 27.2 pg (27.0-33.0); MEAN CORPUSCULAR HGB CONC 31.4 g/dl (32.0-36.5); MEAN CORPUSCULAR VOLUME 86.8 fl (80.0-96.0); PLATELET COUNT, AUTOMATED 254 10^3/uL (150-450); RED BLOOD COUNT 3.78 10^6/uL (4.30-6.10)
[2021-12-10 09:10] LABS: BLOOD UREA NITROGEN 24 MG/DL (7-18); CALCIUM LEVEL 9.2 MG/DL (8.8-10.2); CARBON DIOXIDE LEVEL 37 MEQ/L (21-32); CHLORIDE LEVEL 100 MEQ/L (98-107); CREATININE FOR GFR 0.88 MG/DL (0.70-1.30); GLOMERULAR FILTRATION RATE > 60.0 (>42); GLUCOSE, FASTING 111 MG/DL (70-100); POTASSIUM SERUM 3.9 MEQ/L (3.5-5.1); SODIUM LEVEL 141 MEQ/L (136-145)
[2021-12-10] MEDS: MULTIVITAMINS/MINERALS THERAP 1 TAB PO SCH (09:14)
[2021-12-10] MEDS: SENOKOT S TAB PO SCH ×2 (09:14→22:23)
[2021-12-10] MEDS: VITAMIN D 1,000 INTERNATIONAL UNITS TABLET PO SCH (09:14)
[2021-12-10] MEDS: TAMSULOSIN 0.4 MG CAP PO SCH (09:14)
[2021-12-10] MEDS: MIRALAX *UNIT DOSE* 17GM PACKET PO SCH ×2 (09:14→22:23)
[2021-12-10] MEDS: DOCUSATE SODIUM 100MG CAPSULE PO SCH ×2 (09:14→22:23)
[2021-12-10] MEDS: FUROSEMIDE 20 MG TAB PO SCH (09:15)
[2021-12-10] MEDS: AMIODARONE 200 MG TAB (PACERONE) PO SCH ×2 (09:15→22:23)
[2021-12-10] MEDS: FINASTERIDE 5MG TAB PO SCH (09:17)
[2021-12-10] MEDS: APIXABAN 5 MG TAB (ELIQUIS) PO SCH ×2 (09:17→22:24)
[2021-12-10] MEDS: DIGOXIN 0.125 MG TAB PO SCH (09:17)
[2021-12-10] MEDS: diltiaZEM **CD** 180 MG CAP PO SCH (09:20)
[2021-12-10] MEDS: TIOTROPIUM INHALER/CAPSULE (SPIRIVA) INH SCH (11:15)
[2021-12-10] MEDS ORDERED: guaiFENesin SYRUP 200MG 10ML UDC PO PRN (12:30)
[2021-12-10] MEDS: SIMVASTATIN 20 MG TAB PO SCH (22:24)
[2021-12-10] MEDS: SIMETHICONE 80MG CHEW TAB PO PRN (22:43)
[2021-12-11] MEDS: IPRATROPIUM 0.5MG/ALBUTEROL 2.5MG INH SOL UD 3ML (DUONEB) NEB PRN ×4 (00:06→22:48)
[2021-12-11] MEDS: LEVOTHYROXINE 75MCG TABLET (0.075MG) PO SCH (05:39)
[2021-12-11 06:00] VITALS: BP 107/47
[2021-12-11] MEDS: SYMBICORT 160/4.5MCG INHALER 6GM INH SCH ×2 (07:33→19:32)
[2021-12-11] MEDS: TIOTROPIUM INHALER/CAPSULE (SPIRIVA) INH SCH (07:33)
[2021-12-11] MEDS: MIRALAX *UNIT DOSE* 17GM PACKET PO SCH ×2 (09:00→20:57)
[2021-12-11] MEDS: AMIODARONE 200 MG TAB (PACERONE) PO SCH ×2 (09:34→20:57)
[2021-12-11] MEDS: DIGOXIN 0.125 MG TAB PO SCH (09:35)
[2021-12-11] MEDS: APIXABAN 5 MG TAB (ELIQUIS) PO SCH ×2 (09:35→20:57)
[2021-12-11] MEDS: MULTIVITAMINS/MINERALS THERAP 1 TAB PO SCH (09:36)
[2021-12-11] MEDS: TAMSULOSIN 0.4 MG CAP PO SCH (09:36)
[2021-12-11] MEDS: SENOKOT S TAB PO SCH ×2 (09:36→20:57)
[2021-12-11] MEDS: FUROSEMIDE 20 MG TAB PO SCH (09:36)
[2021-12-11] MEDS: FINASTERIDE 5MG TAB PO SCH (09:37)
[2021-12-11] MEDS: VITAMIN D 1,000 INTERNATIONAL UNITS TABLET PO SCH (09:37)
[2021-12-11] MEDS: diltiaZEM **CD** 180 MG CAP PO SCH (09:42)
[2021-12-11] MEDS: DOCUSATE SODIUM 100MG CAPSULE PO SCH ×2 (09:43→20:57)
[2021-12-11] MEDS: SIMETHICONE 80MG CHEW TAB PO PRN ×2 (12:27→21:07)
[2021-12-11] MEDS: guaiFENesin 200 MG TAB PO PRN ×2 (12:27→21:07)
[2021-12-11] MEDS: SIMVASTATIN 20 MG TAB PO SCH (20:57)
[2021-12-12] MEDS: ACETAMINOPHEN 500 MG TAB PO PRN (04:06)
[2021-12-12 06:00] VITALS: BP 106/59
[2021-12-12] MEDS: LEVOTHYROXINE 75MCG TABLET (0.075MG) PO SCH (06:37)
[2021-12-12] MEDS: SYMBICORT 160/4.5MCG INHALER 6GM INH SCH ×2 (07:53→20:00)
[2021-12-12] MEDS: TIOTROPIUM INHALER/CAPSULE (SPIRIVA) INH SCH (07:53)
[2021-12-12] MEDS: diltiaZEM **CD** 180 MG CAP PO SCH (09:00)
[2021-12-12] MEDS: MIRALAX *UNIT DOSE* 17GM PACKET PO SCH ×2 (09:00→20:23)
[2021-12-12] MEDS: MULTIVITAMINS/MINERALS THERAP 1 TAB PO SCH (09:27)
[2021-12-12] MEDS: VITAMIN D 1,000 INTERNATIONAL UNITS TABLET PO SCH (09:28)
[2021-12-12] MEDS: FINASTERIDE 5MG TAB PO SCH (09:28)
[2021-12-12] MEDS: DIGOXIN 0.125 MG TAB PO SCH (09:28)
[2021-12-12] MEDS: AMIODARONE 200 MG TAB (PACERONE) PO SCH ×2 (09:28→20:22)
[2021-12-12] MEDS: APIXABAN 5 MG TAB (ELIQUIS) PO SCH ×2 (09:28→20:22)
[2021-12-12] MEDS: TAMSULOSIN 0.4 MG CAP PO SCH (09:28)
[2021-12-12] MEDS: DOCUSATE SODIUM 100MG CAPSULE PO SCH ×2 (09:28→20:22)
[2021-12-12] MEDS: SENOKOT S TAB PO SCH ×2 (09:29→20:22)
[2021-12-12] MEDS: FUROSEMIDE 20 MG TAB PO SCH (09:29)
[2021-12-12] MEDS: SIMETHICONE 80MG CHEW TAB PO PRN ×2 (09:33→15:45)
[2021-12-12] MEDS: guaiFENesin 200 MG TAB PO PRN ×2 (15:45→22:31)
[2021-12-12] MEDS: IPRATROPIUM 0.5MG/ALBUTEROL 2.5MG INH SOL UD 3ML (DUONEB) NEB PRN (16:10)
[2021-12-12] MEDS: SIMVASTATIN 20 MG TAB PO SCH (20:22)
[2021-12-13] MEDS: guaiFENesin 200 MG TAB PO PRN ×3 (04:38→20:10)
[2021-12-13] MEDS: LEVOTHYROXINE 75MCG TABLET (0.075MG) PO SCH (05:47)
[2021-12-13 06:00] VITALS: BP 112/56
[2021-12-13 08:05] LABS: BASO % 0.2 % (0.0-1.0); EOS # 0.2 10^3/uL (0.0-0.5); EOS % 2.5 % (0.0-3.0); LYMPH # 0.6 10^3/uL (1.5-5.0); LYMPH % 5.9 % (24.0-44.0); MEAN CORPUSCULAR HEMOGLOBIN 26.7 pg (27.0-33.0); MEAN CORPUSCULAR HGB CONC 30.3 g/dl (32.0-36.5); MEAN CORPUSCULAR VOLUME 88.2 fl (80.0-96.0); MONO # 0.8 10^3/uL (0.0-0.8); MONO % 8.2 % (2.0-8.0); NEUTROPHILS # 7.9 10^3/uL (1.5-8.5); NEUTROPHILS % 82.8 % (36.0-66.0); PLATELET COUNT, AUTOMATED 216 10^3/uL (150-450); RED BLOOD COUNT 3.74 10^6/uL (4.30-6.10); WHITE BLOOD COUNT 9.5 10^3/uL (4.0-10.0)
[2021-12-13] MEDS: TIOTROPIUM INHALER/CAPSULE (SPIRIVA) INH SCH (08:07)
[2021-12-13] MEDS: SYMBICORT 160/4.5MCG INHALER 6GM INH SCH ×2 (08:11→20:46)
[2021-12-13 08:34] LABS: BLOOD UREA NITROGEN 22 MG/DL (7-18); CALCIUM LEVEL 8.8 MG/DL (8.8-10.2); CARBON DIOXIDE LEVEL 38 MEQ/L (21-32); CHLORIDE LEVEL 102 MEQ/L (98-107); CREATININE FOR GFR 0.82 MG/DL (0.70-1.30); GLOMERULAR FILTRATION RATE > 60.0 (>42); GLUCOSE, FASTING 102 MG/DL (70-100); MAGNESIUM LEVEL 2.2 MG/DL (1.8-2.4); POTASSIUM SERUM 3.9 MEQ/L (3.5-5.1); SODIUM LEVEL 141 MEQ/L (136-145)
[2021-12-13] MEDS: MIRALAX *UNIT DOSE* 17GM PACKET PO SCH ×2 (09:00→20:04)
[2021-12-13] MEDS: DOCUSATE SODIUM 100MG CAPSULE PO SCH ×3 (09:00→20:07)
[2021-12-13] MEDS: SENOKOT S TAB PO SCH ×3 (09:00→20:08)
[2021-12-13] MEDS: FINASTERIDE 5MG TAB PO SCH (09:06)
[2021-12-13] MEDS: DIGOXIN 0.125 MG TAB PO SCH (09:06)
[2021-12-13] MEDS: SIMETHICONE 80MG CHEW TAB PO PRN (09:06)
[2021-12-13] MEDS: APIXABAN 5 MG TAB (ELIQUIS) PO SCH ×2 (09:06→20:07)
[2021-12-13] MEDS: VITAMIN D 1,000 INTERNATIONAL UNITS TABLET PO SCH (09:06)
[2021-12-13] MEDS: TAMSULOSIN 0.4 MG CAP PO SCH (09:06)
[2021-12-13] MEDS: MULTIVITAMINS/MINERALS THERAP 1 TAB PO SCH (09:06)
[2021-12-13] MEDS: AMIODARONE 200 MG TAB (PACERONE) PO SCH ×2 (09:06→20:08)
[2021-12-13] MEDS: FUROSEMIDE 20 MG TAB PO SCH (09:07)
[2021-12-13 09:09] VITALS: BP 119/55
[2021-12-13] MEDS: diltiaZEM **CD** 180 MG CAP PO SCH (09:12)
[2021-12-13] MEDS ORDERED: SIMETHICONE 80MG CHEW TAB PO PRN (09:20)
[2021-12-13] MEDS ORDERED: PILL CUTTER 1 EACH XX PRN (09:25)
[2021-12-13] MEDS: IPRATROPIUM 0.5MG/ALBUTEROL 2.5MG INH SOL UD 3ML (DUONEB) NEB PRN (12:52)
[2021-12-13] MEDS ORDERED: LevoFLOXacin 750 MG TABLET PO SCH (18:00)
[2021-12-13] MEDS: SIMVASTATIN 20 MG TAB PO SCH (20:07)
[2021-12-14] MEDS: IPRATROPIUM 0.5MG/ALBUTEROL 2.5MG INH SOL UD 3ML (DUONEB) NEB PRN (04:14)
[2021-12-14] MEDS: LEVOTHYROXINE 75MCG TABLET (0.075MG) PO SCH (05:37)
[2021-12-14 05:54] LABS: BASO % 0.2 % (0.0-1.0); EOS # 0.2 10^3/uL (0.0-0.5); HEMATOCRIT 31.9 % (42.0-52.0); HEMOGLOBIN 9.7 g/dl (13.5-17.5); LYMPH # 0.8 10^3/uL (1.5-5.0); LYMPH % 8.9 % (24.0-44.0); MEAN CORPUSCULAR HEMOGLOBIN 26.8 pg (27.0-33.0); MEAN CORPUSCULAR HGB CONC 30.4 g/dl (32.0-36.5); MEAN CORPUSCULAR VOLUME 88.1 fl (80.0-96.0); MONO # 0.9 10^3/uL (0.0-0.8); MONO % 9.9 % (2.0-8.0); NEUTROPHILS # 7.3 10^3/uL (1.5-8.5); NEUTROPHILS % 78.6 % (36.0-66.0); PLATELET COUNT, AUTOMATED 206 10^3/uL (150-450); RED BLOOD COUNT 3.62 10^6/uL (4.30-6.10); WHITE BLOOD COUNT 9.2 10^3/uL (4.0-10.0)
[2021-12-14 06:00] VITALS: BP 106/58
[2021-12-14 06:28] LABS: BLOOD UREA NITROGEN 21 MG/DL (7-18); CALCIUM LEVEL 8.1 MG/DL (8.8-10.2); CARBON DIOXIDE LEVEL 35 MEQ/L (21-32); CHLORIDE LEVEL 101 MEQ/L (98-107); CREATININE FOR GFR 0.79 MG/DL (0.70-1.30); GLOMERULAR FILTRATION RATE > 60.0 (>42); GLUCOSE, FASTING 91 MG/DL (70-100); MAGNESIUM LEVEL 1.9 MG/DL (1.8-2.4); POTASSIUM SERUM 4.1 MEQ/L (3.5-5.1); SODIUM LEVEL 139 MEQ/L (136-145)
[2021-12-14] MEDS: TIOTROPIUM INHALER/CAPSULE (SPIRIVA) INH SCH (08:06)
[2021-12-14] MEDS: SYMBICORT 160/4.5MCG INHALER 6GM INH SCH (08:06)
[2021-12-14 08:24] VITALS: BP 108/54
[2021-12-14] MEDS: diltiaZEM **CD** 180 MG CAP PO SCH (08:24)
[2021-12-14] MEDS: DOCUSATE SODIUM 100MG CAPSULE PO SCH (08:24)
[2021-12-14] MEDS: MIRALAX *UNIT DOSE* 17GM PACKET PO SCH (08:25)
[2021-12-14] MEDS: FUROSEMIDE 20 MG TAB PO SCH (08:25)
[2021-12-14] MEDS: SENOKOT S TAB PO SCH (08:25)
[2021-12-14] MEDS: MULTIVITAMINS/MINERALS THERAP 1 TAB PO SCH (08:26)
[2021-12-14] MEDS: FINASTERIDE 5MG TAB PO SCH (08:26)
[2021-12-14] MEDS: TAMSULOSIN 0.4 MG CAP PO SCH (08:26)
[2021-12-14] MEDS: APIXABAN 5 MG TAB (ELIQUIS) PO SCH (08:26)
[2021-12-14] MEDS: VITAMIN D 1,000 INTERNATIONAL UNITS TABLET PO SCH (08:26)
[2021-12-14] MEDS: AMIODARONE 200 MG TAB (PACERONE) PO SCH (08:26)
[2021-12-14] MEDS: DIGOXIN 0.125 MG TAB PO SCH (08:26)
[2021-12-14] MEDS ORDERED: LEVO750T13 PO (08:31)
[2021-12-14] MEDS: guaiFENesin 200 MG TAB PO PRN (10:01)
== END 2021-12-14 11:11 | DRG 202 ==
LOC: EDBD 11:41 → M ED 11:41 → M ED INP 16:27 → ENRESERV 18:22 → M PCU 21:08 → M MSPAV 12-09 18:52
PROVIDERS: ADMIT Internal Medicine; ATTEND Internal Medicine
DX: J40 Bronchitis, not specified as acute or chronic (principal); J96.11 Chronic respiratory failure with hypoxia; I50.32 Chronic diastolic (congestive) heart failure; I48.92 Unspecified atrial flutter; J44.9 Chronic obstructive pulmonary disease, unspecified; N40.0 Benign prostatic hyperplasia without lower urinary tract symptoms; I11.0 Hypertensive heart disease with heart failure; E78.5 Hyperlipidemia, unspecified; I48.91 Unspecified atrial fibrillation; E03.9 Hypothyroidism, unspecified; Z79.01 Long term (current) use of anticoagulants; Z79.899 Other long term (current) drug therapy

== ENCOUNTER → 2022-04-19 | Outpatient (CLI) | payer BC, OTHER ==
[~2022-04-19] MED LIST changes: +ALBU8.5H; +BUDE10.2; +DILT1CAP3 PO; +LEVO1TAB40 PO; +SENN1TAB41 PO; +SPIR-10; +VITMTA PO
== END ==
LOC: M LABSMTC 11:02
PROVIDERS: ATTEND Anesthesiology
DX: Z01.818 Encounter for other preprocedural examination (principal); Z11.52 Encounter for screening for COVID-19

== ENCOUNTER 2022-04-24 08:52 | Day surgery (SDC) | payer OTHER ==
[~2022-04-24] VITALS: Ht 175.3 cm; Wt 66.7 kg
[~2022-04-24 08:52] MED LIST changes: +CYCLOPENTOLATE 1% OPHTH SOLN 2 ML BTL OD SCH; +FLURBIPROFEN 0.03% OPHTH SOLN 2.5 ML OD SCH; +LIDOCAINE 1% 1ML PF SYRINGE (OR EYE CASES) As Ordered ONE; +LR 1,000 ML IV SCH; +PHENYLEPHRINE 2.5% OPHTH SOL 2ML OD SCH; +TETRACAINE 0.5% OPHTH SOLN 4ML OD SCH
[2022-04-24] MEDS ORDERED: MIDAZOLAM INJ 2MG/2ML VIAL (J2250 PER 1MG) As Ordered ONE (10:37)
[2022-04-24] MEDS ORDERED: fentaNYL 100 MCG/2 ML INJECTION As Ordered ONE (10:38)
[2022-04-24 11:52] VITALS: BP 118/58
== END 2022-04-24 12:17 | disposition home or self-care (01) ==
LOC: M SDC 08:52
PROVIDERS: ATTEND Ophthalmology
DX: H25.11 Age-related nuclear cataract, right eye (principal); I48.91 Unspecified atrial fibrillation; E78.5 Hyperlipidemia, unspecified; E07.9 Disorder of thyroid, unspecified; Z99.81 Dependence on supplemental oxygen; Z79.899 Other long term (current) drug therapy; Z79.51 Long term (current) use of inhaled steroids; Z79.01 Long term (current) use of anticoagulants; Z79.890 Hormone replacement therapy
CPT/HCPCS: 66984; 93005; J2250; J3010; V2632

== ENCOUNTER → 2022-05-17 | Outpatient (CLI) | payer OTHER ==
[~2022-05-17] MED LIST changes: +AZIT-12 PO; -CYCLOPENTOLATE 1% OPHTH SOLN 2 ML BTL OD SCH; +FERR1TAB8 PO; -FLURBIPROFEN 0.03% OPHTH SOLN 2.5 ML OD SCH; -LIDOCAINE 1% 1ML PF SYRINGE (OR EYE CASES) As Ordered ONE; -LR 1,000 ML IV SCH; -PHENYLEPHRINE 2.5% OPHTH SOL 2ML OD SCH; -TETRACAINE 0.5% OPHTH SOLN 4ML OD SCH
== END ==
LOC: M LABSMTC 09:42
PROVIDERS: ATTEND Anesthesiology
DX: Z01.812 Encounter for preprocedural laboratory examination (principal); Z11.52 Encounter for screening for COVID-19

== ENCOUNTER → 2022-06-14 | Outpatient (CLI) | payer OTHER ==
[~2022-06-14] MED LIST changes: +STIO1AER
== END ==
LOC: M LABSMTC 10:13
PROVIDERS: ATTEND Anesthesiology
DX: Z01.818 Encounter for other preprocedural examination (principal); Z11.52 Encounter for screening for COVID-19

== ENCOUNTER → 2022-06-21 | Outpatient (CLI) | payer OTHER | LOC: M EKG 12:29 | PROVIDERS: ATTEND Internal Medicine Pulmonary Disease | DX: I50.30 Unspecified diastolic (congestive) heart failure (principal); Z79.2 Long term (current) use of antibiotics ==

== ENCOUNTER → 2022-07-19 | Outpatient (CLI) | payer OTHER | LOC: M LABSMTC 10:41 | PROVIDERS: ATTEND Anesthesiology | DX: Z01.812 Encounter for preprocedural laboratory examination (principal); Z20.822 Contact with and (suspected) exposure to COVID-19 ==

== ENCOUNTER 2022-07-24 07:46 | Day surgery (SDC) | payer OTHER ==
[~2022-07-24] VITALS: Ht 175.3 cm; Wt 68.0 kg
[~2022-07-24 07:46] MED LIST changes: +CYCLOPENTOLATE 1% OPHTH SOLN 2ML BTL OS SCH; +FLURBIPROFEN 0.03% OPHTH SOLN 2.5 ML OS SCH; +LIDOCAINE 1% SDV 5ML VIAL As Ordered ONE; +LR 1,000 ML IV SCH; +PHENYLEPHRINE 2.5% OPHTH SOL 2ML OS SCH; +TETRACAINE 0.5% OPHTH SOLN 4ML OS SCH
[2022-07-24] MEDS ORDERED: MIDAZOLAM INJ 2MG/2ML VIAL As Ordered ONE (09:30)
[2022-07-24 10:00] VITALS: BP 118/58
== END 2022-07-24 10:30 | disposition home or self-care (01) ==
LOC: M SDC 07:46
PROVIDERS: ATTEND Ophthalmology
DX: H25.812 Combined forms of age-related cataract, left eye (principal); I48.91 Unspecified atrial fibrillation; I10 Essential (primary) hypertension; E03.9 Hypothyroidism, unspecified; Z87.891 Personal history of nicotine dependence; Z79.899 Other long term (current) drug therapy
CPT/HCPCS: 66984; V2632

== ENCOUNTER → 2022-09-15 | Outpatient (CLI) | payer MEDICARE, OTHER ==
[~2022-09-15] MED LIST changes: -CYCLOPENTOLATE 1% OPHTH SOLN 2ML BTL OS SCH; -FLURBIPROFEN 0.03% OPHTH SOLN 2.5 ML OS SCH; -LIDOCAINE 1% SDV 5ML VIAL As Ordered ONE; -LR 1,000 ML IV SCH; -PHENYLEPHRINE 2.5% OPHTH SOL 2ML OS SCH; -TETRACAINE 0.5% OPHTH SOLN 4ML OS SCH
== END ==
LOC: M WHC 08:36
PROVIDERS: ATTEND Family Medicine
DX: R94.6 Abnormal results of thyroid function studies (principal); E04.2 Nontoxic multinodular goiter

== ENCOUNTER → 2022-10-05 | Outpatient (CLI) | payer OTHER ==
[~2022-10-05] MED LIST changes: +FLUT50SP17; -FLUTISP
[2022-10-05 14:53] LABS: THYROID STIMULATING HORMONE 12.413 uIU/ML (0.55-4.78)
[2022-10-05 14:54] LABS: FREE T4 1.18 NG/DL (0.89-1.76)
== END ==
LOC: M PLALAB 11:32
PROVIDERS: ATTEND Nurse Practitioner Family
DX: E03.9 Hypothyroidism, unspecified (principal)

== ENCOUNTER → 2022-10-28 | Outpatient (REF) | payer OTHER ==
[~2022-10-28] MED LIST changes: +DILT180C38 PO; +DILT180C39 PO; -DILT1CAP3 PO; -DILT1CAP4 PO
== END ==
LOC: M LAB REF 10:21
PROVIDERS: ATTEND Internal Medicine Pulmonary Disease
DX: J44.9 Chronic obstructive pulmonary disease, unspecified (principal)

== ENCOUNTER → 2023-01-23 | Outpatient (REF) | payer OTHER | LOC: M LAB REF 17:08 | PROVIDERS: ATTEND Internal Medicine Pulmonary Disease | DX: J44.9 Chronic obstructive pulmonary disease, unspecified (principal) ==

== ENCOUNTER → 2023-03-19 | Outpatient (CLI) | payer BC | LOC: M RAD 14:11 | PROVIDERS: ATTEND Internal Medicine Cardiovascular Disease | DX: I73.9 Peripheral vascular disease, unspecified (principal) ==

== ENCOUNTER → 2023-03-20 | Outpatient (REF) | payer BC | LOC: M SFHCPLAZ 17:08 | PROVIDERS: ATTEND Internal Medicine Infectious Disease | DX: A49.8 Other bacterial infections of unspecified site (principal) ==

== ENCOUNTER → 2023-04-17 | Outpatient (CLI) | payer OTHER, BC | LOC: M WHC 14:01 | PROVIDERS: ATTEND Physician Assistant | DX: I73.9 Peripheral vascular disease, unspecified (principal) ==

== ENCOUNTER → 2023-04-17 | Outpatient (CLI) | payer OTHER, BC ==
[2023-04-17 16:11] LABS: BASO % 0.6 % (0.0-1.0); EOS # 0.1 10^3/uL (0.0-0.5); EOS % 2.5 % (0.0-3.0); HEMATOCRIT 34.4 % (42.0-52.0); HEMOGLOBIN 10.4 g/dl (13.5-17.5); LYMPH # 0.8 10^3/uL (1.5-5.0); LYMPH % 15.3 % (24.0-44.0); MEAN CORPUSCULAR HEMOGLOBIN 26.9 pg (27.0-33.0); MEAN CORPUSCULAR HGB CONC 30.2 g/dl (32.0-36.5); MEAN CORPUSCULAR VOLUME 88.9 fl (80.0-96.0); MONO # 0.5 10^3/uL (0.0-0.8); MONO % 10.2 % (2.0-8.0); NEUTROPHILS # 3.8 10^3/uL (1.5-8.5); PLATELET COUNT, AUTOMATED 130 10^3/uL (150-450); RED BLOOD COUNT 3.87 10^6/uL (4.30-6.10); WHITE BLOOD COUNT 5.3 10^3/uL (4.0-10.0)
== END ==
LOC: M PLALAB 13:33
PROVIDERS: ATTEND Internal Medicine Infectious Disease
DX: A49.8 Other bacterial infections of unspecified site (principal)

== ENCOUNTER → 2023-04-18 | Outpatient (REF) | payer BC, OTHER | LOC: M LAB REF 17:37 | PROVIDERS: ATTEND Internal Medicine Pulmonary Disease | DX: J44.9 Chronic obstructive pulmonary disease, unspecified (principal); J47.9 Bronchiectasis, uncomplicated ==